=== PATIENT | female | born 1960 | race Caucasian/White ===

== ENCOUNTER 2016-08-26 23:21 | Inpatient (IN) | payer MEDICAID ==
[~2016-08-26] VITALS: Ht 162.6 cm; Wt 69.0 kg
[~2016-08-26 23:21] MED LIST: SYMB160A INH; VENTAER INH
[2016-08-26 23:26] VITALS: BP 140/81; PULSE 118; RESP 30; TEMP 97.8; O2SAT 91
[2016-08-26] MEDS ORDERED: methylPREDNISolone SOD SUCC 125 MG/2 ML VIAL IVP ONE (23:30)
[2016-08-26] MEDS: RESP: ALBUTEROL 2.5 MG/3 ML NEB (SCH) INH ×2 (23:31→23:32)
--- NOTE | 2016-08-26 23:33 | PD ---
HPI Chief Complaint: SOB Time Seen by Provider: 23:27 Travel History International Travel<30 days: No Contact w/Intl Traveler<30days: No History of Present Illness HPI PATIENT WAS D/C FROM [facility] FOR PNEUMONIA YESTERDAY..RETURNS TODAY WITH SOB, EMS FOUND PULSE OX 86%, IN RESP DISTRESS, REQUIRING SUPPLEMENTAL OXYGEN PFSH Past Medical History Anxiety: Yes Diminished Hearing: No Kidney Stones: Yes Immunizations Current: Yes Menopausal: Yes Social History Alcohol Use: Yes (PT STATES "3 BEERS AFTER WORK") Tobacco Use: Yes (1.5 PPD SINCE AGE 12 REFUSING TO ANSWER) Substance Use: Yes (DAILY ETOH USE) Allergies-Medications (Allergen,Severity, Reaction): Coded Allergies: Keflex (Verified Allergy, Intermediate, RASH, 11/11/15) Penicillin (Verified Allergy, Intermediate, RASH, 11/11/15) Sulfa (Verified Allergy, Intermediate, Hives, 11/11/15) Ampicillin (Verified Allergy, Unknown, 11/11/15) Reported Meds & Prescriptions Reported Meds & Active Scripts Active Reported Losartan (Losartan Potassium) 25 Mg Tab 25 Mg PO DAILY Pantoprazole (Pantoprazole Sodium) 40 Mg Tab 40 Mg PO DAILY Hydromorphone (Hydromorphone HCl) 4 Mg Tab 4 Mg PO Q4H PRN Sucralfate 1 Gm Tab 1 Gm PO QID on empty stomach Ondansetron Odt 4 Mg Tab 4 Mg SL Q6HR PRN Alprazolam 0.5 Mg Tab 0.5 Mg PO TID PRN Vitamin B-1 (Thiamine Mononitrate) 100 Mg Tab 100 Mg PO DAILY Levofloxacin 750 Mg Tablet 750 Mg PO DAILY Famotidine 20 Mg Tab 20 Mg PO BID Furosemide 20 Mg Tab 20 Mg PO DAILY Trazodone (Trazodone HCl) 100 Mg Tablet 200 Mg PO HS Carvedilol 3.125 Mg Tab 3.125 Mg PO BID Metoprolol Tartrate 25 Mg Tab 25 Mg PO DAILY Review of Systems Except as stated in HPI: all other systems reviewed are Neg Respiratory: Positive: Cough, Shortness of Breath, Wheezing Physical Exam Narrative GENERAL: SKIN: Warm and dry. HEAD: Atraumatic. Normocephalic. EYES: Pupils equal and round. No scleral icterus. No injection or drainage. ENT: No nasal bleeding or discharge. Mucous membranes pink and moist. NECK: Trachea midline. No JVD. CARDIOVASCULAR: Regular rate and rhythm. RESPIRATORY: ACCESSORY MM USE (SUPRASTERNAL), TACHYPNEIC, TRIPODING, PURSED LIP BREATHING, WHEEZING BILATERALLY, DECREASED TV GASTROINTESTINAL: Abdomen soft, non-tender, nondistended. Hepatic and splenic margins not palpable. MUSCULOSKELETAL: Extremities without clubbing, cyanosis, BILATERAL PITTING BLE 3 + edema. No obvious deformities. NEUROLOGICAL: Awake and alert. No obvious cranial nerve deficits. Motor grossly within normal limits. Five out of 5 muscle strength in the arms and legs. Normal speech. PSYCHIATRIC: Appropriate mood and affect; insight and judgment normal. Data Data Last Documented VS Vital Signs Date Time Temp Pulse Resp B/P Pulse Ox O2 Delivery O2 Flow Rate FiO2 08/27/16 02:00 118 22 112/64 93 Nasal Cannula 3 08/26/16 23:26 97.8 Orders Complete Blood Count With Diff (08/26/16 23:27) Comprehensive Metabolic Panel (08/26/16 23:27) B-Type Natriuretic Peptide (08/26/16 23:27) Act Partial Throm Time (Ptt) (08/26/16 23:27) Prothrombin Time / Inr (Pt) (08/26/16 23:27) Ckmb (Isoenzyme) Profile (08/26/16 23:27) Troponin I (08/26/16 23:27) Urinalysis - C+S If Indicated (08/26/16 23:27) Influenzae A/B Antigen (08/26/16 23:27) Iv Access Insert/Monitor (08/26/16 23:27) Electrocardiogram (08/26/16 23:27) Ecg Monitoring (08/26/16 23:27) Oximetry (08/26/16 23:27) Oxygen Administration (08/26/16 23:27) Chest, Single Ap (08/26/16 23:27) Methylprednisolone So Succ Inj (Solumedr (08/26/16 23:30) Albuterol Neb (Albuterol Neb) (08/26/16 23:30) Magnesium Sulfate 1 Gm Premix (Magnesium (08/26/16 23:45) Lactic Acid Sepsis Protocol (08/26/16 23:54) Aztreonam Inj (Azactam Inj) (08/27/16 00:00) Azithromycin Inj (Zithromax Inj) (08/27/16 00:00) Tobramycin Inj (Nebcin Inj) (08/27/16 00:30) Labs Laboratory Tests Test 08/26/16 08/27/16 23:35 00:25 Prothrombin Time 12.1 SEC Prothromb Time International 1.1 RATIO Ratio Activated Partial 30.6 SEC Thromboplast Time White Blood Count 16.7 TH/MM3 Red Blood Count 3.51 MIL/MM3 Hemoglobin 10.4 GM/DL Hematocrit 31.6 % Mean Corpuscular Volume 90.0 FL Mean Corpuscular Hemoglobin 29.6 PG Mean Corpuscular Hemoglobin 32.9 % Concent Red Cell Distribution Width 16.6 % Platelet Count 443 TH/MM3 Mean Platelet Volume 6.8 FL Neutrophils (%) (Auto) 90.6 % Lymphocytes (%) (Auto) 3.6 % Monocytes (%) (Auto) 5.5 % Eosinophils (%) (Auto) 0.1 % Basophils (%) (Auto) 0.2 % Neutrophils # (Auto) 15.1 TH/MM3 Lymphocytes # (Auto) 0.6 TH/MM3 Monocytes # (Auto) 0.9 TH/MM3 Eosinophils # (Auto) 0.0 TH/MM3 Basophils # (Auto) 0.0 TH/MM3 CBC Comment AUTO DIFF Differential Total Cells 100 Counted Neutrophils % (Manual) 87 % Band Neutrophils % 1 % Lymphocytes % 6 % Monocytes % 3 % Neutrophils # (Manual) 15.2 TH/MM3 Metamyelocytes 1 % Myelocytes 1 % Promyelocytes 1 % Differential Comment FINAL DIFF MANUAL Platelet Estimate HIGH Platelet Morphology Comment NORMAL Red Cell Morphology Comment NORMAL Sodium Level 134 MEQ/L Potassium Level 3.6 MEQ/L Chloride Level 96 MEQ/L Carbon Dioxide Level 32.6 MEQ/L Anion Gap 5 MEQ/L Blood Urea Nitrogen 5 MG/DL Creatinine 0.42 MG/DL Estimat Glomerular Filtration 156 ML/MIN Rate Random Glucose 114 MG/DL Calcium Level 8.3 MG/DL Total Bilirubin 0.4 MG/DL Aspartate Amino Transf 16 U/L (AST/SGOT) Alanine Aminotransferase 8 U/L (ALT/SGPT) Alkaline Phosphatase 147 U/L Total Creatine Kinase 29 U/L Troponin I 0.08 NG/ML B-Type Natriuretic Peptide 140 PG/ML Total Protein 6.5 GM/DL Albumin 1.8 GM/DL Lactic Acid Level 1.4 mmol/L [facility] Medical Decision Making Medical Screen Exam Complete: Yes Emergency Medical Condition: Yes Medical Record Reviewed: Yes Interpretation(s) SINUS TACHY, 129, ARIEL, NO STEMI PATTERN Differential Diagnosis WORSENING PNA V ATYPICAL MA VS PE VS RESP FAILURE Narrative Course PATIENT EVALUATED AND TREATED FOR HYPOXEMIC RESP FAILURE, FOUND TO STILL HAVE RLL INFILTRATE THAT APPEARS WORSE, GIVEN IV ABX FOR TREATMENT. AND WILL ADMIT TO OBS AND OBTAIN SERIAL TROPONIN/EKG TO R/O MA WELL CONTINUE TREATING PNA Critical Care Narrative CRITICAL CARE NOTE: With evaluation of the patient, labs, EKG, receipt of radiologic studies, administration of medications, reevaluation the patient and discussion of the patient with the admitting physicians, the total critical care time was [60] minutes. Time to perform other separately billable procedures was not included in the critical care time. Diagnosis Primary Impression: ACUTE HYPOXEMIC RESPIRATORY FAILURE Additional Impression: RIGHT LUNG PNEUMONIA Admitting Information Admitting Physician Requests: Admit Prabhu Elise MD Aug 26, 2016 23:33
[2016-08-26 23:43] LABS: AUTOMATED NEUTROPHIL # 15.1 TH/MM3 (1.8-7.7); BASOPHIL % 0.2 % (0.0-2.0); EOSINOPHIL % 0.1 % (0.0-4.0); HEMATOCRIT 31.6 % (35.0-46.0); LYMPH % 3.6 % (9.0-44.0); LYMPHOCYTE # 0.6 TH/MM3 (1.0-4.8); MEAN CORPUSCULAR HEMOGLOBIN 29.6 PG (27.0-34.0); MEAN CORPUSCULAR HGB CONC 32.9 % (32.0-36.0); MONO % 5.5 % (0.0-8.0); NEUT % 90.6 % (16.0-70.0); PLATELET COUNT 443 TH/MM3 (150-450); RED BLOOD COUNT 3.51 MIL/MM3 (4.00-5.30); RED CELL DISTRIBUTION WIDTH 16.6 % (11.6-17.2); WHITE BLOOD COUNT 16.7 TH/MM3 (4.0-11.0)
[2016-08-26] MEDS ORDERED: MAGNESIUM SULFATE 1 GM PREMIX 100 ML IV ONE (23:45)
[2016-08-26 23:46] LABS: HEMO FLAGS AUTO DIFF
--- NOTE | 2016-08-26 23:48 | RADRPT ---
EXAM DATE/TIME: 08/26/2016 23:42 [facility] COMPARISON: CHEST SINGLE AP, November 11, 2015, 21:07. INDICATIONS : Shortness of breath. MEDICAL HISTORY : Chronic obstructive pulmonary disease. SURGICAL HISTORY : None. ENCOUNTER: Initial ACUITY: 3 days PAIN SCORE: 0/10 LOCATION: chest FINDINGS: There is right pleural effusion with dense air space consolidation of most of the right lung not pres ent previously. Mild left lung base atelectasis and/or infiltrate is seen. Heart and mediastinum are not significantly changed. CONCLUSION: Interval development of a right pleural effusion and dense air space consolidation of the right lung and slight left lung base atelectasis and/or infiltrate. Goldie Brito MD on August 26, 2016 at 23:46 Board Certified Radiologist. This report was verified electronically.
[2016-08-26 23:53] LABS: APTT (PATIENT) 30.6 SEC (24.3-30.1); INTERNATIONAL NORMALIZED RATIO 1.1 RATIO; PROTHROMBIN TIME - PATIENT 12.1 SEC (9.8-11.6)
[2016-08-27] VITALS (16 sets, daily range): BP systolic 92–132; BP diastolic 58–96; PULSE 110–127; RESP 22–28; TEMP 98–98.8; O2SAT 91–100
[2016-08-27] MEDS ORDERED: AZITHROMYCIN INJ 500 MG in SODIUM CHLOR 0.9% 250 ML INJ 250 ML IV ONE ×2
[2016-08-27] MEDS ORDERED: AZTREONAM INJ 2,000 MG in SODIUM CHLORIDE 0.9% INJ 100 ML IV ONE ×2
[2016-08-27 00:04] LABS: ANION GAP 5 MEQ/L (5-15); AST (GOT) 16 U/L (15-37); BICARBONATE 32.6 MEQ/L (21.0-32.0); BLOOD UREA NITROGEN 5 MG/DL (7-18); CHLORIDE 96 MEQ/L (98-107); GLOMERULAR FILTRATION RATE 156 ML/MIN (>89); POTASSIUM 3.6 MEQ/L (3.5-5.1); SODIUM (NA) 134 MEQ/L (136-145)
[2016-08-27 00:08] LABS: ALKALINE PHOSPHATASE 147 U/L (45-117); ALT (GPT) 8 U/L (10-53); TOTAL BILIRUBIN ADULT 0.4 MG/DL (0.2-1.0)
[2016-08-27 00:10] LABS: CREATINE KINASE 29 U/L (26-192)
[2016-08-27 00:16] LABS: BANDS 1 % (0-6); METAMYELOCYTES 1 % (0-1); MYELOCYTES 1 % (0-0); NEUTROPHIL # MANUAL DIFF 15.2 TH/MM3 (1.8-7.7); PLATELET ESTIMATE SMEAR HIGH (NORMAL); PLATELET MORPHOLOGY NORMAL (NORMAL); POLYS (SEG NEUTROPHILS) 87 % (16-70); PROMYELOCYTES 1 % (0-0); SCAN/DIFF FINAL DIFF MANUAL; WBC DIFF SAMPLE 100
[2016-08-27] MEDS ORDERED: FAMO20TA2 PO (00:21)
[2016-08-27] MEDS ORDERED: FURO20TA PO (00:21)
[2016-08-27] MEDS ORDERED: TRAZ100T6 PO (00:21)
[2016-08-27] MEDS ORDERED: METO25TA3 PO (00:21)
[2016-08-27] MEDS ORDERED: CARV3.12 PO (00:21)
[2016-08-27] MEDS ORDERED: ONDA4TAB7 SL (00:22)
[2016-08-27] MEDS ORDERED: THIA100T18 PO (00:22)
[2016-08-27] MEDS ORDERED: PANT40TA3 PO (00:22)
[2016-08-27] MEDS ORDERED: LOSA25TA PO (00:22)
[2016-08-27] MEDS ORDERED: SUCR1TAB PO (00:22)
[2016-08-27] MEDS ORDERED: LEVO750T3 PO (00:22)
[2016-08-27] MEDS ORDERED: HYDR4TAB PO (00:22)
[2016-08-27] MEDS ORDERED: ALPR0.5T3 PO (00:22)
[2016-08-27] MEDS ORDERED: TOBRAMYCIN IV ONE (00:30)
[2016-08-27] MEDS ORDERED: SODIUM CHLORIDE 0.9% IV ONE (00:30)
[2016-08-27] MEDS ORDERED: ONDANSETRON HCL 4 MG/2 ML VIAL IVP PRN (03:00)
[2016-08-27] MEDS ORDERED: BISACODYL 10 MG SUPP RECTAL PRN (03:00)
[2016-08-27] MEDS ORDERED: methylPREDNISolone SOD SUCC 125 MG/2 ML VIAL IVP SCH (03:00)
[2016-08-27] MEDS ORDERED: LACTULOSE SYRUP 20 GM/30 ML CUP PO PRN (03:00)
[2016-08-27] MEDS ORDERED: SENNOSIDES 8.6 MG TAB PO PRN (03:00)
[2016-08-27] MEDS ORDERED: ACETAMINOPHEN 325 MG TAB PO PRN (03:00)
[2016-08-27] MEDS ORDERED: SODIUM CHLORIDE 0.9% FLUSH 10 ML FLUSH IV FLUSH PRN (03:00)
[2016-08-27] MEDS ORDERED: RESP: ALBUTEROL 2.5 MG/3 ML NEB (PRN) INH (03:00)
[2016-08-27] MEDS ORDERED: NALOXONE HCL 0.4 MG/ML AMP IV PRN (03:00)
[2016-08-27] MEDS: SODIUM CHLOR 0.9% 1000 ML INJ 1,000 ML IV SCH (03:39)
[2016-08-27] MEDS ORDERED: RESP: ALBUTEROL 2.5 MG/IPRATROPIUM 0.5 MG NEB (SCH) INH (04:00)
[2016-08-27 06:32] LABS: BACTERIA, URINE RARE /hpf; BLOOD, URINE NEG (NEG); COMMENT (UR) CULT NOT INDICATED; CULTURE IF INDICATED CULT NOT INDICATED; GLUCOSE,URINE NEG (NEG); HYALINE CAST, URINE 4 /lpf (RARE); KETONE, URINE NEG (NEG); MUCUS URINE FEW /lpf (OCC); NITRITE,URINE NEG (NEG); SQUAMOUS EPITHELIAL CELL URINE 1 /hpf (0-5); TRIPLE PHOSPHATE CRYSTAL,URINE RARE /hpf; URINE COLOR YELLOW (YELLW/STRAW)
[2016-08-27] MEDS: methylPREDNISolone SOD SUCC 125 MG/2 ML VIAL IVP SCH ×2 (06:54→12:00)
[2016-08-27] MEDS: SODIUM CHLORIDE 0.9% FLUSH 10 ML FLUSH IV FLUSH SCH ×2 (09:00→20:56)
[2016-08-27] MEDS: HEPARIN SODIUM - SQ 10,000 UNITS/ML VIAL SQ SCH ×2 (09:00→20:54)
--- NOTE | 2016-08-27 09:34 | MH ---
cc: PALMER PENA MD DATE OF ADMISSION: 08/27/2016 DATE OF : 1960 REASON FOR ADMISSION Chest pain and shortness of breath. HISTORY OF PRESENT ILLNESS This is a 55-year-old white female who was just discharged from [facility] yesterday with pneumonia. She returns with shortness of breath. EMS noted an O2 sat of 86. The patient does use O2 at home and was requiring supplemental oxygen during her event. She notes her chest pain to have waxed and waned, midsternal, non-radiating with shortness of breath. No radiation into her arms. The patient's color is pale and she is actively short of breath with low volumes with any type of increased activity. The patient denies any symptoms of headache. She had some nausea at the time of the chest pain but no vomiting, no diarrhea, no constipation. She has a significant history of a pack and a half tobacco abuse since the age of 12 and three beers a day after work, and states that she has not drank or smoked anything in two months. PAST MEDICAL HISTORY Anxiety. Noted is a history of kidney stones but the patient denies remembering any event. PAST SURGICAL HISTORY No surgical history. ALLERGIES 1. AMPICILLIN. 2. KEFLEX. 3. PENICILLIN. 4. SULFA. MEDICATIONS 1. Losartan. 2. Protonix. 3. Hydromorphone p.o. 4. Carafate. 5. Xanax. 6. Vitamins. 7. Vitamin-B1. 8. Levaquin. 9. Zantac. 10. Lasix. 11. Trazodone. 12. Carvedilol. 13. Metoprolol. SOCIAL HISTORY The patient is single, lives in her home, and her son lives with her. REVIEW OF SYSTEMS A 12-point review obtained. Positives noted are shortness of breath, wheezing, chest pain, active cough with thick white creamy sputum. Other systems are negative or unremarkable. PHYSICAL EXAMINATION VITAL SIGNS: Temperature 98. Pulse for the past 12 hours between 118 and 127, currently 120. Respiratory rate 24. Blood pressure 103/64; high at midnight last night 132/78. O2 sat 91% on nasal cannula at 3 liters. GENERAL: A thin, borderline frail white female who looks older than her stated age, currently sitting up on the bedside commode and back to bed independently. SKIN: Pale, warm and dry. HEENT: Atraumatic, normocephalic. PERRLA at 3 mm. NECK: Supple. HEART: S1, S2, tachycardic rhythm. LUNGS: Wheezing, rhonchi and diminished breath sounds throughout. Decreased breath sounds in her bases bilateral. ABDOMEN: Flat, soft, nontender, nondistended. Active bowel sounds. EXTREMITIES: Moves her extremities with purpose. She does have 1+ pitting edema in her lower extremities. NEUROLOGIC: She is alert and oriented, answers questions appropriately. PSYCHIATRIC: Appropriate mood and affect. LABORATORY DATA WBC count 16.7, RBC 3.51, hemoglobin 10.4, hematocrit 31.6, neutrophil count 9.6, lymphocyte count 3.6, high platelet estimate count 443. INR is 1.1. Sodium 134, potassium 3.6, chloride 96, carbon dioxide 32.6, anion gap 5, BUN 5, creatinine 0.42, GFR 156, glucose 114, lactic acid 1.4, calcium 8.3, ALT 8, alkaline phosphatase 147, creatinine kinase 29, troponin 0.08 and 0.80, BNP 140, total protein 6.5, albumin 1.8. Urinalysis was negative, culture not indicated. IMAGING DATA Chest x-ray shows right pleural effusion, dense airspace consolidation of the right and left lung base, atelectasis and/or infiltrates. ASSESSMENT 1. Chest pain, rule out myocardial infarction, rule out cardiovascular disease. 2. Pneumonia bilateral with effusion and infiltrates. 3. Hyponatremia, mild. 4. Protein calorie malnutrition, moderate. 5. History of anxiety. 6. COPD. 7. History of significant tobacco dependence. PLAN Inpatient status. Continuous cardiac monitoring, currently being monitored in the intensive care unit. The patient got a dose of azithromycin as well as aztreonam IV q.8h. She is on IV steroids. Her labs will be monitored which will include a third troponin. She has been placed on heparin subcu for DVT prophylaxis. Bowel regimen monitored. Pulmonary has been consulted for their expert opinion and will consult cardiology for their expert opinion. The patient has had a bump in her troponin level and symptoms of chest pain. Sputum culture has been ordered. She is negative for influenza A and B. Hypoxia which is now being controlled with O2. Vital signs q.4h. and as warranted. DuoNeb treatments q.6h. and q.2h. p.r.n. the patient can be out of bed to bedside commode but needs to be monitored for her safety. The patient received IV fluids gentle hydration. Will continue to monitor her needs based on her findings throughout this hospital stay. Dictated by: SHIMON Cruz Palmer Pena MD JP/ARMINDA /8:40 AM /9:06 AM Patient was seen and examined as above [id number] time spent with patient Chart was reviewed in detail Plan of care and above not discussed with SHIMON Discussed with patient Discussed with Dr. Wooten graduate engineer Discussed with detacher condition guarded Prognosis guarded to overall poor MTDD
--- NOTE | 2016-08-27 10:00 | RADRPT ---
EXAM DATE/TIME: 08/27/2016 09:30 [facility] COMPARISON: No previous studies available for comparison. INDICATIONS : Short of breath. MEDICAL HISTORY : Hypercholesterolemia. Hypertension. Renal calculi. Pneumonia. COPD. ETOH use. Anxiety. SURGICAL HISTORY : None. ENCOUNTER: Initial ACUITY: 3 days PAIN SCORE: 1/10 LOCATION: Right chest MEASUREMENTS: SKIN TO PARIETAL PLEURA: 2.0 cm SKIN TO MAX SAFE DEPTH: 6.8 cm ESTIMATED FLUID VOLUME: 1698 cc FLUID COMPOSITION: simple FINDINGS: Pleural effusion as above. CONCLUSION: Moderate right pleural effusion, marked for bedside thoracentesis Davon Spain MD on August 27, 2016 at 9:57 Board Certified Radiologist. This report was verified electronically.
[2016-08-27] MEDS ORDERED: AZTREONAM INJ 2,000 MG in SODIUM CHLORIDE 0.9% INJ 100 ML IV SCH (11:00)
--- NOTE | 2016-08-27 11:34 | EKG ---
Date Performed: 08/26/2016 Time Performed: 23:30:38 PTAGE: 55 years EKG: SINUS TACHYCARDIA LOW QRS VOLTAGE IN EXTREMITY LEADS ABNORMAL RHYTHM ECG NO PREVIOUS TRACING DOCTOR: Rohan Ramos Interpretating Date/Time 08/27/2016 11:33:29
[2016-08-27] MEDS ORDERED: HYDROmorphone HCL 4 MG TAB PO PRN (12:15)
[2016-08-27] MEDS: PANTOPRAZOLE SOD 40 MG DELAYED RELEASE TAB PO SCH (12:15)
[2016-08-27] MEDS ORDERED: CARVEDILOL 3.125 MG TAB PO SCH (12:15)
[2016-08-27] MEDS ORDERED: PILL SPLITTER OTHER PRN (12:30)
[2016-08-27] MEDS ORDERED: MORPHINE SULFATE 4 MG/ML INJ IV PUSH ONE (12:45)
[2016-08-27] MEDS: ALPRAZolam 0.5 MG TAB PO PRN ×3 (12:45→19:25)
[2016-08-27] MEDS: SUCRALFATE 1 GM TAB PO SCH ×3 (12:46→20:55)
[2016-08-27] MEDS: FUROSEMIDE 20 MG TAB PO SCH (12:50)
[2016-08-27] MEDS: FAMOTIDINE 20 MG TAB PO SCH ×2 (12:50→20:55)
--- NOTE | 2016-08-27 14:20 | MB ---
cc: GONZALES MUNSON M.D. DATE OF CONSULTATION: 08/27/2016 REASON FOR CONSULTATION: Evaluation of elevated troponin and chest pain. HISTORY OF PRESENT ILLNESS This is a 55-year-old female who was just discharged from [facility] and now re-admitted to [place]. Her troponin has gone from 0.08 to 0.80 and I was counseled because she has chest pain. The patient tells me she was diagnosed with throat and lung cancer in March, apparently had a needle biopsy. She has received 38 radiation treatments and six bouts of chemotherapy. Last bout of chemotherapy was Tuesday before last. She is having severe shortness of breath. She has sharp pain in her right lower chest and lower back, it is worse when she takes a deep breath. We do not have any of her old records and Dr. Pena is in the process of getting those. The pain she is having is extremely severe and she is requesting medication for it. Apparently has a longstanding history of smoking, a pack and a half a day since she was 12 years of age and also three beers a day. The only other past history I could get from her is kidney stones. ALLERGIES AMPICILLIN, KEFLEX, PENICILLIN, SULFA. SOCIAL HISTORY She is single. Her son apparently lives with her. REVIEW OF SYSTEMS Positive as described above. PHYSICAL EXAMINATION GENERAL: Physical exam reveals a distressed female, older than stated age. VITAL SIGNS: Charted. She is in sinus tachycardia. HEENT: Exam unremarkable. NECK: Negative for bruits. CHEST: Shows absent breath sounds left lung farias. CARDIAC: S1-S2, markedly tachycardic and there is a gallop. ABDOMEN: Soft. EXTREMITIES: Reveal 2+ lower extremity edema. LABORATORY DATA Lab work shows the troponin 1.08 to 0.80. The creatinine is 0.42. Sodium is depressed at 134. BNP is 140, hematocrit 31.6, white count 16,700. IMAGING STUDIES Chest x-ray is extremely abnormal with right pleural effusion but also has whiteout of most of the right side of the chest and also some infiltrate in the left lower lobe as well. EKG Shows marked sinus tachycardia, low limb lead voltage, no acute ST-T wave changes. IMPRESSION Chest pain with mildly elevated troponin in a very complicated 55-year-old woman with severe COPD and lung cancer, has significant right lower lobe effusion. She has been on a beta williams before admission. I am going to resume metoprolol 12.5 b.i.d., going to check an echo to see if there is any evidence of cardiac tamponade. I do not plan any cardiac evaluation in view of her prognosis and her malignancy diagnosis. Further therapy to be determined. MD SANTI Rowell/EVENS /12:27 PM /2:03 PM
[2016-08-27] MEDS ORDERED: CHLORHEXIDINE GLUCONATE 2 % 1 PACK (2 CLOTHS)(extra cloths) TOPICAL PRN (14:45)
[2016-08-27] MEDS: AZTREONAM INJ 2,000 MG in SODIUM CHLORIDE 0.9% INJ 100 ML IV SCH ×2 (14:51→20:53)
[2016-08-27] MEDS: MORPHINE SULFATE 4 MG/ML INJ IV PUSH PRN ×2 (14:52→20:55)
[2016-08-27] MEDS: RESP: ALBUTEROL 2.5 MG/IPRATROPIUM 0.5 MG NEB (SCH) NEB ×2 (16:00→19:35)
[2016-08-27] MEDS: methylPREDNISolone SOD SUCC 40 MG/1 ML VIAL IV PUSH SCH ×2 (18:00→23:44)
--- NOTE | 2016-08-27 20:43 | RADRPT ---
EXAM DATE/TIME: 08/27/2016 20:28 [facility] COMPARISON: CHEST SINGLE AP, August 26, 2016, 23:42. INDICATIONS : Status post thoracentesis. MEDICAL HISTORY : Chronic obstructive pulmonary disease. SURGICAL HISTORY : ENCOUNTER: Subsequent ACUITY: 1 day PAIN SCORE: 3/10 LOCATION: chest FINDINGS: A single AP semierect portable view of the chest was obtained. This again demonstrates dense airspace disease in the right lung with consolidative opacity along the lateral mid chest. The right costophr enic angle remains blunted. There is patchy opacity at the left lung base. There is no visualized pne umothorax. The heart size is within normal limits. Bony thorax is intact. CONCLUSION: 1. No evidence of pneumothorax. 2. Abnormal airspace opacity and consolidation in the right lung without significant change. 3. The right effusion does not appear significantly changed. Corey Norwood MD on August 27, 2016 at 20:39 Board Certified Radiologist. This report was verified electronically.
[2016-08-27 20:54] LABS: PLEURAL FLUID LYMPHS 47 %
[2016-08-27] MEDS: traZODone HCL 100 MG TAB PO SCH (20:55)
[2016-08-27] MEDS: METOPROLOL TARTRATE 25 MG TAB PO SCH (20:56)
[2016-08-28] VITALS (14 sets, daily range): BP systolic 82–92; BP diastolic 52–64; PULSE 102–119; RESP 11–22; TEMP 98.3–99.2; O2SAT 95–100
[2016-08-28] MEDS: AZITHROMYCIN INJ 500 MG in SODIUM CHLOR 0.9% 250 ML INJ 250 ML IV SCH (01:24)
[2016-08-28] MEDS: MORPHINE SULFATE 4 MG/ML INJ IV PUSH PRN ×6 (02:04→18:14)
[2016-08-28] MEDS: CHLORHEXIDINE GLUCONATE 2 % 1 PACK (2 CLOTHS)(taper/protocol) TOPICAL SCH (04:00)
[2016-08-28] MEDS: AZTREONAM INJ 2,000 MG in SODIUM CHLORIDE 0.9% INJ 100 ML IV SCH ×3 (04:57→23:42)
[2016-08-28] MEDS: methylPREDNISolone SOD SUCC 40 MG/1 ML VIAL IV PUSH SCH ×3 (04:57→18:00)
[2016-08-28] MEDS: ALPRAZolam 0.5 MG TAB PO PRN ×2 (05:52→10:33)
[2016-08-28 06:23] LABS: AUTOMATED NEUTROPHIL # 8.3 TH/MM3 (1.8-7.7); BASOPHIL % 0.1 % (0.0-2.0); HEMATOCRIT 25.1 % (35.0-46.0); HEMO FLAGS DIFF FINAL; LYMPH % 2.7 % (9.0-44.0); LYMPHOCYTE # 0.2 TH/MM3 (1.0-4.8); MEAN CELL VOLUME 90.9 FL (80.0-100.0); MEAN CORPUSCULAR HEMOGLOBIN 30.2 PG (27.0-34.0); MEAN CORPUSCULAR HGB CONC 33.2 % (32.0-36.0); MONO % 3.8 % (0.0-8.0); NEUT % 93.4 % (16.0-70.0); PLATELET COUNT 359 TH/MM3 (150-450); RED BLOOD COUNT 2.76 MIL/MM3 (4.00-5.30); RED CELL DISTRIBUTION WIDTH 16.6 % (11.6-17.2); WHITE BLOOD COUNT 8.9 TH/MM3 (4.0-11.0)
[2016-08-28 06:28] LABS: INTERNATIONAL NORMALIZED RATIO 1.2 RATIO; PROTHROMBIN TIME - PATIENT 13.1 SEC (9.8-11.6)
[2016-08-28 06:50] LABS: BICARBONATE 32.5 MEQ/L (21.0-32.0); POTASSIUM 4.1 MEQ/L (3.5-5.1)
[2016-08-28] MEDS: RESP: ALBUTEROL 2.5 MG/IPRATROPIUM 0.5 MG NEB (SCH) NEB ×5 (07:53→23:36)
[2016-08-28] MEDS: FUROSEMIDE 20 MG TAB PO SCH (08:06)
[2016-08-28] MEDS: PANTOPRAZOLE SOD 40 MG DELAYED RELEASE TAB PO SCH (08:06)
[2016-08-28] MEDS: SUCRALFATE 1 GM TAB PO SCH ×4 (08:06→23:44)
[2016-08-28] MEDS: THIAMINE HCL 100 MG TAB PO SCH (08:06)
[2016-08-28] MEDS: FAMOTIDINE 20 MG TAB PO SCH ×2 (08:06→23:45)
[2016-08-28] MEDS: LOSARTAN 25 MG TAB PO SCH (08:06)
[2016-08-28] MEDS: METOPROLOL TARTRATE 25 MG TAB PO SCH ×2 (08:06→21:00)
[2016-08-28] MEDS: HEPARIN SODIUM - SQ 10,000 UNITS/ML VIAL SQ SCH ×3 (08:07→23:46)
[2016-08-28] MEDS: SODIUM CHLORIDE 0.9% FLUSH 10 ML FLUSH IV FLUSH SCH ×2 (08:08→23:42)
[2016-08-28] MEDS: SODIUM CHLOR 0.9% 1000 ML INJ 1,000 ML IV SCH (08:50)
[2016-08-28] MEDS ORDERED: METOPROLOL TARTRATE 25 MG TAB PO SCH (09:00)
--- NOTE | 2016-08-28 09:43 | HHI.PR ---
Subjective Remarks Tearful Uncontrolled pain, back legs chest lungs States it's her cancer pain Color pale Lung volumes low Mild tachycardia (Ibeth Gottlieb) Objective Objective Results - Vital Signs Date Time Temp Pulse Resp B/P Pulse Ox O2 Delivery O2 Flow Rate FiO2 08/28/16 07:54 100 Nasal Cannula 3.00 08/28/16 06:00 103 08/28/16 04:00 106 08/28/16 04:00 98.5 106 22 92/55 100 08/28/16 00:00 113 08/28/16 00:00 98.3 113 11 82/52 97 08/27/16 22:00 110 08/27/16 20:00 116 08/27/16 20:00 98.1 116 28 97/58 100 08/27/16 19:35 99 Nasal Cannula 4.00 08/27/16 18:00 114 08/27/16 16:00 114 08/27/16 16:00 98.8 110 24 100/96 99 08/27/16 14:00 110 08/27/16 14:00 98.8 125 24 94/62 99 08/27/16 12:00 110 08/27/16 10:50 98.0 26 110/64 91 08/27/16 10:00 110 I/O 08/27/16 08/27/16 08/27/16 08/28/16 08/28/16 08/28/16 07:00 15:00 23:00 07:00 15:00 23:00 Intake Total 1205 ml 1066 ml 895 ml Output Total 800 ml Balance 405 ml 1066 ml 895 ml Intake Oral 380 ml 360 ml 240 ml IV Total 825 ml 706 ml 655 ml Output Urine Total 800 ml # Voids 1 1 # Bowel Movements 0 0 (Ibeth Gottlieb) Result Diagram: 08/28/16 0545 08/28/16 0545 ROS General: Fatigue, Weakness, Other (12 point ROS done positives noted) Cardiac: Chest Pain (muscle skeletal) Pulmonary: Cough (productive), SOB (even at rest), Wheezing (mild expiratory) Neuro/MS: Other (aching pain all over, cancer pain) (Ibeth Gottlieb) Physical Exam Physical Exam PHYSICAL EXAMINATION GENERAL: This is a chronically ill female who appears to be in moderate distress with pain. She is alert and awake, restless HEAD: Normocephalic alopecia Facial features appear symmetric. OROPHARYNGEAL: Oropharynx dry, pale NECK: Supple. Trachea midline without deviation. CARDIAC: Regular tachycardic rhythm, and rate, S1 and S2 are heard. LUNGS: Decreased breath sounds to auscultation bilaterally right greater than left. Low air volumes ABDOMEN: Soft, nontender Bowel sound soft EXTREMITIES: no edema. Pulses intact NEUROLOGICAL: Patient mood and affect restless, agitated speech is clear SKIN:Warm and dry (Ibeth Gottlieb) A/P Assessment and Plan 1. Chest pain, rule out myocardial infarction, rule out cardiovascular disease. 2. Pneumonia bilateral with effusion and infiltrates. 3. Hyponatremia, mild. 4. Protein calorie malnutrition, moderate. 5. History of anxiety. 6. COPD. 7. History of significant tobacco dependence. Vital signs reviewed pulse is mildly tachycardic 103-110 Blood pressure has been low normal 92/55, nurse stated low blood pressures last night systolic 70s 1 time Labs reviewed hemoglobin decreased to 8.3 Leukocytosis resolved now 8.9 Pneumonia, bilateral, continues with low air volumes, coarse cough with sputum production, rodriguez/yellow Wearing oxygen per nasal cannula, with adequate O2 sats COPD duo nebs, IV steroids continue Appreciate input from pulmonary, thoracentesis Tap done for pleural fluid, results are pending History of cancer, pain management, patient is requesting to be placed back on her by mouth Dilaudid. Currently receiving IV morphine Restless agitated, requesting more pain management, but BP has been low Anemia monitor, no acute blood loss noted Anxiety increased today secondary to her pain management, continue IV hydration caution Coverage nutrition, and by mouth fluids, with special attention to increased protein intake Chest pain atypical, cancer and with cough. Appreciate cardiology input, currently we will proceed with medical management for now Patient is debilitated and unable to proceed with any invasive cardiac procedures. 2-D echo pending Continuous ECG monitoring for now DVT prophylaxis (Ibeth Gottlieb) Assessment and Plan Patient seen and examined as above [id number] time spent with patient Labs reviewed Status post thoracentesis yesterday approximately 800 mL taken out as per RN Plan of care discussed with EQUIPMENT MANAGER Discussed with patient discussed with RN (Everton Pena MD) Ibeth Gottlieb Aug 28, 2016 09:43 Everton Pena MD Aug 28, 2016 15:39
--- NOTE | 2016-08-28 10:14 | HHI.PR ---
Subjective Remarks Patient is on 4L oxygen with good sats. s/p right sided thoracentesis with removal 850ml pleural fluid. Afebrile. Objective Vital Signs Vital Signs Date Time Temp Pulse Resp B/P Pulse Ox O2 Delivery O2 Flow Rate FiO2 08/28/16 07:54 100 Nasal Cannula 3.00 08/28/16 06:00 103 08/28/16 04:00 106 08/28/16 04:00 98.5 106 22 92/55 100 08/28/16 00:00 113 08/28/16 00:00 98.3 113 11 82/52 97 08/27/16 22:00 110 08/27/16 20:00 116 08/27/16 20:00 98.1 116 28 97/58 100 08/27/16 19:35 99 Nasal Cannula 4.00 08/27/16 18:00 114 08/27/16 16:00 114 08/27/16 16:00 98.8 110 24 100/96 99 08/27/16 14:00 110 08/27/16 14:00 98.8 125 24 94/62 99 08/27/16 12:00 110 08/27/16 10:50 98.0 26 110/64 91 I/O 08/27/16 08/27/16 08/27/16 08/28/16 08/28/16 08/28/16 07:00 15:00 23:00 07:00 15:00 23:00 Intake Total 1205 ml 1066 ml 895 ml Output Total 800 ml Balance 405 ml 1066 ml 895 ml Intake Oral 380 ml 360 ml 240 ml IV Total 825 ml 706 ml 655 ml Output Urine Total 800 ml # Voids 1 1 # Bowel Movements 0 0 Result Diagram: 08/28/16 0545 08/28/16 0545 Other Results Laboratory Tests Test 08/27/16 08/28/16 18:45 05:45 Pleural Fluid pH 8.0 Pleural Fluid WBC 184 /MM3 Pleural Fluid RBC 138 /MM3 Pleural Fluid Neutrophils 50 % Pleural Fluid Lymphocytes 47 % Pleural Fluid Eosinophils 1 % Pleural Fluid Basophils 1 % Pleural Fluid Histiocytes 1 % White Blood Count 8.9 TH/MM3 Red Blood Count 2.76 MIL/MM3 Hemoglobin 8.3 GM/DL Hematocrit 25.1 % Mean Corpuscular Volume 90.9 FL Mean Corpuscular Hemoglobin 30.2 PG Mean Corpuscular Hemoglobin 33.2 % Concent Red Cell Distribution Width 16.6 % Platelet Count 359 TH/MM3 Mean Platelet Volume 6.9 FL Neutrophils (%) (Auto) 93.4 % Lymphocytes (%) (Auto) 2.7 % Monocytes (%) (Auto) 3.8 % Eosinophils (%) (Auto) 0.0 % Basophils (%) (Auto) 0.1 % Neutrophils # (Auto) 8.3 TH/MM3 Lymphocytes # (Auto) 0.2 TH/MM3 Monocytes # (Auto) 0.3 TH/MM3 Eosinophils # (Auto) 0.0 TH/MM3 Basophils # (Auto) 0.0 TH/MM3 CBC Comment DIFF FINAL Differential Comment Prothrombin Time 13.1 SEC Prothromb Time International 1.2 RATIO Ratio Sodium Level 137 MEQ/L Potassium Level 4.1 MEQ/L Chloride Level 100 MEQ/L Carbon Dioxide Level 32.5 MEQ/L Anion Gap 5 MEQ/L Blood Urea Nitrogen 10 MG/DL Creatinine 0.54 MG/DL Estimat Glomerular Filtration 117 ML/MIN Rate Random Glucose 143 MG/DL Calcium Level 7.8 MG/DL Troponin I 0.38 NG/ML Objective Remarks GENERAL: Patient is 55 yo sitting up in chair in NAD SKIN: Warm and dry. HEAD: Normocephalic. EYES: No scleral icterus. No injection or drainage. NECK: Supple, trachea midline. No JVD or lymphadenopathy. CARDIOVASCULAR: Regular rate and rhythm without murmurs, gallops, or rubs. RESPIRATORY: Breath sounds equal bilaterally. Diminished BS. GASTROINTESTINAL: Abdomen soft, non-tender, nondistended. MUSCULOSKELETAL: No cyanosis, or edema. Neuro: Awake and alert A/P Assessment and Plan 1)Resp Insuff 2)Hx Throat and Lung ca 3)Right pleural effusion s/p thoracentesis 4)COPD exac 5)Right sided pneumonia 6)Mild elevated trop 7)Anemia Plan Continue with oxygen keep sat >92% Bronchodilators( Duoneb), add Symbicort Continue with IV steroids- Solumederol 40mg Q6 NIPPV PRN for resp distress s/p US guided thoracentesis follow up on fluid analysis/culture Continue with abx ( Aztreonam, Azithromycin) Monitor for signs of infections ( Fever, WBC) Check strep pneumonia and Legionella urinary AG Nasal washing negative for Influenza on 08/27 Continue with diuretics- On Lasix 20mg daily, d/c IVF GI/DVT prophylaxis on Protonix and Heparin respectively. Holly Hatfield MD Aug 28, 2016 10:14
[2016-08-28] MEDS: BUDESONIDE-FORMOTEROL 160/4.5 MCG INHALER INH SCH ×2 (10:15→21:00)
--- NOTE | 2016-08-28 10:19 | ECHRPT ---
Indication: assess for pericardial effusion CONCLUSIONS The left ventricular systolic function is moderately reduced with an estimated ejection fraction in the range of 40-45%. Regional wall motion is technically difficult to assess. Wall thickness is normal. Normal left ventricular size. Mild mitral valve regurgitation. There is mild to moderate tricuspid valve regurgitation. The estimated pulmonary arterial pressure is 41 mmHg. The pulmonary valve is not well visualized. BP: 103 / 64 HR: 130 Rhythm: Other MEASUREMENTS (Male / Female) Normal Values Technical Quality:Fair 2D ECHO LV Diastolic Diameter PLAX 4.1 cm 4.2 - 5.9 / 3.9 - 5.3 cm LV Systolic Diameter PLAX 3.4 cm IVS Diastolic Thickness 0.9 cm 0.6 - 1.0 / 0.6 - 0.9 cm LVPW Diastolic Thickness 0.9 cm 0.6 - 1.0 / 0.6 - 0.9 cm LV Relative Wall Thickness 0.5 LVOT Diameter 1.8 cm M-MODE Aortic Root Diameter MM 2.0 cm LA Systolic Diameter MM 3.3 cm LA Ao Ratio MM 1.6 AV Cusp Separation MM 1.9 cm DOPPLER AV Peak Velocity 103.0 cm/s AV Peak Gradient 4.2 mmHg LVOT Peak Velocity 96.7 cm/s LVOT Peak Gradient 3.7 mmHg AV Area Cont Eq pk 2.4 cm MR Peak Velocity 374.0 cm/s MR Peak Gradient 56.0 mmHg TR Peak Velocity 278.0 cm/s TR Peak Gradient 30.9 mmHg PV Peak Velocity 76.0 cm/s PV Peak Gradient 2.3 mmHg FINDINGS LEFT VENTRICLE The left ventricular systolic function is moderately reduced with an estimated ejection fraction in the range of 40-45%. Regional wall motion is technically difficult to assess. Wall thickness is normal. Normal left ventricular size. RIGHT VENTRICLE Normal right ventricular size and systolic function. LEFT ATRIUM The left atrial size is normal. RIGHT ATRIUM The right atrial size is normal. ATRIAL SEPTUM Normal atrial septal thickness without atrial level shunting by limited color doppler interrogation. AORTA The aortic root and proximal ascending aorta are normal in size on limited imaging. MITRAL VALVE Mild mitral valve regurgitation. AORTIC VALVE Trileaflet aortic valve. No aortic valve stenosis or regurgitation. TRICUSPID VALVE There is mild to moderate tricuspid valve regurgitation. The estimated pulmonary arterial pressure is 41 mmHg. PULMONARY VALVE The pulmonary valve is not well visualized. VESSELS The inferior vena cava is normal in size. PERICARDIUM No pericardial effusion. Cesario Rodríguez MD (Electronically Signed) Final Date:28 August 2016 10:17
--- NOTE | 2016-08-28 10:43 | PD.CARD.PN ---
Subjective Subjective Remarks C/o constant right-sided chest pain and back pain Objective Medications Current Medications Medications (Trade) Dose Ordered Sig/Luiz Route Start Time Stop Time Status Last Admin (NS Flush) 2 ml UNSCH PRN IV FLUSH 08/27/16 03:00 (NS Flush) 2 ml BID IV FLUSH 08/27/16 09:00 08/28/16 08:08 (Tylenol) 650 mg Q4H PRN PO 08/27/16 03:00 08/27/16 11:57 (Zofran Inj) 4 mg Q6H PRN IVP 08/27/16 03:00 (Heparin Inj) 5,000 units Q12HR SQ 08/27/16 09:00 08/27/16 20:54 (Narcan Inj) 0.4 mg UNSCH PRN IV 08/27/16 03:00 (Senokot) 17.2 mg Q12H PRN PO 08/27/16 03:00 (Dulcolax Supp) 10 mg DAILY PRN RECTAL 08/27/16 03:00 Lactulose 30 ml 30 ml DAILY PRN PO 08/27/16 03:00 Azithromycin 500 mg/Sodium Chloride 250 ml @ 250 mls/hr Q24H IV 08/28/16 02:00 08/28/16 01:24 (Azactam Inj/NS Inj) 100 ml @ 200 mls/hr Q8H IV 08/27/16 13:00 08/28/16 04:57 (Lopressor) 12.5 mg Q12HR PO 08/27/16 21:00 08/28/16 08:06 (Xanax) 0.5 mg TID PRN PO 08/27/16 12:15 08/28/16 10:33 (Pepcid) 20 mg BID PO 08/27/16 12:15 08/28/16 08:06 (Lasix) 20 mg DAILY PO 08/27/16 12:15 08/28/16 08:06 (Cozaar) 25 mg DAILY PO 08/28/16 09:00 08/28/16 08:06 (Protonix) 40 mg DAILY PO 08/27/16 12:15 08/28/16 08:06 (Carafate) 1 gm QID PO 08/27/16 13:00 08/28/16 08:06 (Vitamin B1) 100 mg DAILY PO 08/28/16 09:00 08/28/16 08:06 (Desyrel) 200 mg HS PO 08/27/16 21:00 08/27/16 20:55 (Pill Splitter) 1 ea UNSCH PRN OTHER 08/27/16 12:30 (Morphine Inj) 4 mg Q3H PRN IV PUSH 08/27/16 16:00 08/28/16 10:34 (SoluMEDROL INJ) 40 mg Q6HR IV PUSH 08/27/16 18:00 08/28/16 04:57 Miscellaneous Information Patient in critical care unit? Ass... Q361D .XX 08/27/16 14:45 (Chlorhexidine 2% Cloth) 3 pack DAILY@04 TOPICAL 08/28/16 04:00 09/01/16 04:01 08/28/16 04:00 (Chlorhexidine 2% Cloth) 3 pack UNSCH PRN TOPICAL 08/27/16 14:45 09/01/16 14:36 (Symbicort 160-4.5 Inh) 2 puff Q12HR INH 08/28/16 10:15 Vital Signs / I&O Vital Signs Date Time Temp Pulse Resp B/P Pulse Ox O2 Delivery O2 Flow Rate FiO2 08/28/16 07:54 100 Nasal Cannula 3.00 08/28/16 06:00 103 08/28/16 04:00 106 08/28/16 04:00 98.5 106 22 92/55 100 08/28/16 00:00 113 08/28/16 00:00 98.3 113 11 82/52 97 08/27/16 22:00 110 08/27/16 20:00 116 08/27/16 20:00 98.1 116 28 97/58 100 08/27/16 19:35 99 Nasal Cannula 4.00 08/27/16 18:00 114 08/27/16 16:00 114 08/27/16 16:00 98.8 110 24 100/96 99 08/27/16 14:00 110 08/27/16 14:00 98.8 125 24 94/62 99 08/27/16 12:00 110 08/27/16 10:50 98.0 26 110/64 91 I/O 08/27/16 08/27/16 08/27/16 08/28/16 7/1/17 7/1/17 07:00 15:00 23:00 07:00 15:00 23:00 Intake Total 1205 ml 1066 ml 895 ml Output Total 800 ml Balance 405 ml 1066 ml 895 ml Intake Oral 380 ml 360 ml 240 ml IV Total 825 ml 706 ml 655 ml Output Urine Total 800 ml # Voids 1 1 # Bowel Movements 0 0 Physical Exam Alert Decreased breath sounds on right CV S1S2 tachycardic No edema. Echo mild dcreased LV function Laboratory Laboratory Tests Test 08/27/16 08/28/16 18:45 05:45 Pleural Fluid pH 8.0 Pleural Fluid WBC 184 /MM3 Pleural Fluid RBC 138 /MM3 Pleural Fluid Neutrophils 50 % Pleural Fluid Lymphocytes 47 % Pleural Fluid Eosinophils 1 % Pleural Fluid Basophils 1 % Pleural Fluid Histiocytes 1 % White Blood Count 8.9 TH/MM3 Red Blood Count 2.76 MIL/MM3 Hemoglobin 8.3 GM/DL Hematocrit 25.1 % Mean Corpuscular Volume 90.9 FL Mean Corpuscular Hemoglobin 30.2 PG Mean Corpuscular Hemoglobin 33.2 % Concent Red Cell Distribution Width 16.6 % Platelet Count 359 TH/MM3 Mean Platelet Volume 6.9 FL Neutrophils (%) (Auto) 93.4 % Lymphocytes (%) (Auto) 2.7 % Monocytes (%) (Auto) 3.8 % Eosinophils (%) (Auto) 0.0 % Basophils (%) (Auto) 0.1 % Neutrophils # (Auto) 8.3 TH/MM3 Lymphocytes # (Auto) 0.2 TH/MM3 Monocytes # (Auto) 0.3 TH/MM3 Eosinophils # (Auto) 0.0 TH/MM3 Basophils # (Auto) 0.0 TH/MM3 CBC Comment DIFF FINAL Differential Comment Prothrombin Time 13.1 SEC Prothromb Time International 1.2 RATIO Ratio Sodium Level 137 MEQ/L Potassium Level 4.1 MEQ/L Chloride Level 100 MEQ/L Carbon Dioxide Level 32.5 MEQ/L Anion Gap 5 MEQ/L Blood Urea Nitrogen 10 MG/DL Creatinine 0.54 MG/DL Estimat Glomerular Filtration 117 ML/MIN Rate Random Glucose 143 MG/DL Calcium Level 7.8 MG/DL Troponin I 0.38 NG/ML Imaging Last 48 hours Impressions Chest X-Ray 08/27/16 0000 Signed Impressions: Service Date/Time: Saturday, August 27, 2016 20:28 - CONCLUSION: 1. No evidence of pneumothorax. 2. Abnormal airspace opacity and consolidation in the right lung without significant change. 3. The right effusion does not appear significantly changed. Corey Norwood MD Chest Ultrasound 08/27/16 0000 Signed Impressions: Service Date/Time: Saturday, August 27, 2016 09:30 - CONCLUSION: Moderate right pleural effusion, marked for bedside thoracentesis Davon Spain MD Chest X-Ray 08/26/16 2327 Signed Impressions: Service Date/Time: July 23:42 - CONCLUSION: Interval development of a right pleural effusion and dense air space consolidation of the right lung and slight left lung base atelectasis and/or infiltrate. Goldie Brito MD Assessment and Plan Problem List: (1) Elevated troponin Assessment and Plan: Patient apparently has adenocarcinoma of the lung with malignant effusion and intractable pain. I will sign off/ see prn. Cesario Rodríguez MD Aug 28, 2016 10:43
[2016-08-28] MEDS: HYDROmorphone HCL 2 MG TAB PO PRN ×3 (11:51→18:14)
--- NOTE | 2016-08-28 19:44 | PD.CONS ---
[facility] Service Critical Care Medicine [facility] Reason for Consult Respiratory distress Primary Care Physician Unknown History of Present Illness From patient is limited due to respiratory distress. I obtained history as best as possible from patient's daughter, Prashanth. 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 She has been under the treatment of her oncologist Dr. Arias at [facility]. Reportedly she initiated chemotherapy in March but then suffered myocardial infarction and was transferred to ICU where she was reportedly on mechanical ventilation for 3- 4 days. She underwent radiation was reportedly was completed in June. She eventually resumed chemotherapy after her admission to ICU and completed chemotherapy in June or early July. Since her diagnosis in March she has reportedly been rehospitalized 3-4 times at [facility]. Most recently she was admitted for one week with pneumonia. She had been discharged for 1 day when she was brought to [facility] ED with SOB. She had consolidation of the right long and right pleural effusion. She was started on aztreonam and azithromycin.. She underwent thoracentesis with removal of 850 cc of fluid. She has been on about 3 L nasal cannula. Tonight sats dropped into the 70s and she was placed on nonrebreather. Heart rate was in the 140s in sinus tachycardia. She is in severe respiratory distress. She indicates that she would want intubation if needed and is FULL CODE for pulseless arrest. Her son- in-law is at bedside. Review of Systems ROS Limitations: Clinical Condition, Other (severe respiratory distress) Respiratory: COMPLAINS OF: Shortness of breath Cardiovascular: COMPLAINS OF: Dyspnea on Exertion, Lower Extremity Edema Past Family Social History Allergies: Coded Allergies: Keflex (Verified Allergy, Intermediate, RASH, 11/11/15) Penicillin (Verified Allergy, Intermediate, RASH, 11/11/15) Sulfa (Verified Allergy, Intermediate, Hives, 11/11/15) Ampicillin (Verified Allergy, Unknown, 11/11/15) Past Medical History HTN CAD with prior h/o PA ischemic cardiomyopathy Anxiety Duodenal ulcer Laryngeal cancer and lung cancer diagnosed in March 2016 Past Surgical History Patient's daughter reports that she has no known past surgical history Reported Medications Zofran 4 mg every 6 hours as needed for nausea Losartan 25 mg by mouth daily Trazodone 20 mg by mouth daily at bedtime Xanax 0.5 mg by mouth 3 times a day Carvedilol 3.125 mill grams by mouth twice a day Metoprolol 25 mg daily Famotidine 20 g by mouth twice a day Lasix 20 mg by mouth daily Dilaudid for mill grams by mouth every 4 hours when necessary pain Sucralfate 1 g by mouth 4 times a day Pantoprazole 40 g by mouth daily Thiamine 100 mg by mouth daily Family History Brother - "liver cancer" age 54, Brother with lung cancer, living, (pts daughter is unsure of his age) Mother - gastric cancer 70s or 80s. Sister - breast cancer, living at age 54 Social History Smokes 2-3 packs of cigarettes per day for most of her life and then quit 2 months ago Drinks 2-3 six packs per day in addition to liquor for most of her life , quit 2 months ago No history of illicit drug use. No IV drug use Her daughter states that patient has no living will. Patient is not . She has 2 sons and a daughter. Physical Exam Vital Signs Vital Signs Date Time Temp Pulse Resp B/P Pulse Ox O2 Delivery O2 Flow Rate FiO2 08/28/16 18:00 102 08/28/16 16:00 102 08/28/16 15:38 20 08/28/16 14:00 102 08/28/16 12:00 114 08/28/16 10:39 20 08/28/16 08:00 114 08/28/16 07:54 100 Nasal Cannula 3.00 08/28/16 06:00 103 08/28/16 04:00 106 08/28/16 04:00 98.5 106 22 92/55 100 08/28/16 00:00 113 08/28/16 00:00 98.3 113 11 82/52 97 08/27/16 22:00 110 08/27/16 20:00 116 08/27/16 20:00 98.1 116 28 97/58 100 08/27/16 19:35 99 Nasal Cannula 4.00 Physical Exam Temp 98.5. Pulse 140-150, sinus tachycardia, sats 95% on nonrebreather, respiratory rate in the 30s GENERAL: Anxious appearing female with severely labored breathing on nonrebreather SKIN: Warm and dry. HEAD: Atraumatic. Normocephalic. EYES: Pupils equal and round. No scleral icterus. No injection or drainage. ENT: No nasal bleeding or discharge. NECK: Trachea midline. No JVD. CARDIOVASCULAR: Tachycardic, regular, sinus tachycardia on the monitor with rate in the 140s to 150s. No murmurs appreciated. RESPIRATORY: Breath sounds are severely diminished bilaterally. Scant expiratory wheezes noted bilaterally. No Rales. GASTROINTESTINAL: Abdomen soft, non-tender, nondistended. Bowel sounds present. MUSCULOSKELETAL: Extremities without clubbing, cyanosis. 1 + edema BLE, slightly worse on right. NEUROLOGICAL: Awake and alert. Motor grossly within normal limits, moving all extremities spontaneously without focal deficit.. Normal speech. Laboratory Laboratory Tests Test 08/28/16 05:45 White Blood Count 8.9 Red Blood Count 2.76 Hemoglobin 8.3 Hematocrit 25.1 Mean Corpuscular Volume 90.9 Mean Corpuscular Hemoglobin 30.2 Mean Corpuscular Hemoglobin 33.2 Concent Red Cell Distribution Width 16.6 Platelet Count 359 Mean Platelet Volume 6.9 Neutrophils (%) (Auto) 93.4 Lymphocytes (%) (Auto) 2.7 Monocytes (%) (Auto) 3.8 Eosinophils (%) (Auto) 0.0 Basophils (%) (Auto) 0.1 Neutrophils # (Auto) 8.3 Lymphocytes # (Auto) 0.2 Monocytes # (Auto) 0.3 Eosinophils # (Auto) 0.0 Basophils # (Auto) 0.0 CBC Comment DIFF FINAL Differential Comment Prothrombin Time 13.1 Prothromb Time International 1.2 Ratio Sodium Level 137 Potassium Level 4.1 Chloride Level 100 Carbon Dioxide Level 32.5 Anion Gap 5 Blood Urea Nitrogen 10 Creatinine 0.54 Estimat Glomerular Filtration 117 Rate Random Glucose 143 Calcium Level 7.8 Troponin I 0.38 Date/Time Procedure Status Source Growth 08/27/16 18:45 Gram Stain - Final Resulted Fluid Pleural Fluid 08/27/16 18:45 Body Fluid Culture - Preliminary Resulted Fluid Pleural Fluid NO GROWTH IN 24 HOURS. 08/27/16 18:45 Fungal Smear - Final Resulted Fluid Pleural Fluid NO FUNGAL ELEMENTS SEEN. 08/27/16 18:45 Fungal Culture Resulted Fluid Pleural Fluid Pending 08/27/16 18:45 Acid Fast Stain Received Fluid Pleural Fluid Pending 08/27/16 18:45 Mycobacterial Culture Received Fluid Pleural Fluid Pending 08/27/16 00:35 Influenza Types A,B Antigen (ELVIS) - Final Complete Nasal Washing NEGATIVE FOR FLU A AND B ANTIGEN.... Result Diagram: 08/28/1654408/28/16544 Assessment and Plan Assessment and Plan NEURO: History of alcohol abuse Anxiety Insomnia Reportedly quit drinking 2 months ago Precedex to facilitate BiPAP tolerance. Morphine as needed for pain Trazodone 200 mg by mouth daily at bedtime On thiamine 100 mg by mouth daily RESP: Acute hypercapnic respiratory failure Stage IV Lung cancer/laryngeal cancer Right pleural effusion COPD History of tobacco abuse Placed on BiPAP 15 45% due to high work of breathing and hypoxia. Patient does state that she would want intubation if needed, however this may place her in situation where she cannot be weaned due to terminal cancer and I have discussed that with her and her daughter. Thoracentesis 08/27 with 850 removal. CTA obtained - negative for PE. There is a large cavitary mass with destruction of RUL. Collapse of RUL, RML and RLL, consolidation RLL . Mild residual L pleural effusion. Symbicort 2 puffs inhaled every 12 hours DuoNeb every 4 hours. Albuterol every 2 hours as needed Solu-Medrol 40 g IV every 6 Antibiotics for postobstructive pneumonia as per below CV: Sinus tachycardia Coronary artery disease Chronic systolic heart failure history of hypertension Metoprolol 12.5 mill grams by mouth every 12 hours Losartan 25 mill grams by mouth daily Lasix 20 mg by mouth daily 2-D echo 08/27/16ejection fraction 40-45%. Normal wall thickness. Mild MR. Mild to moderate TR. Pulmonary artery pressure 41 mmHg Troponins mildly elevated, peaked at 0.8. Cardiology evaluated, Dr. Rodríguez. No further cardiac workup planned, cardiology has signed off. GI: History of duodenal ulcer Nothing by mouth while on BiPAP. Then heart healthy diet as tolerated Sucralfate 1 g by mouth 4 times a day, famotidine 20 mill grams by mouth twice a day FEN/RENAL: Hyponatremia, resolved Voiding. place edmond if needed. Lasix as per above. Place electrolytes as indicated per ICU electrolyte replacement protocol. ID: Leukocytosis Postobstructive pneumonia Pleural fluid culture from 08/27 no growth to date. Fungal smear negative. Fungal culture and AF stain pending. Influenza screen negative on 6/30 Sputum culture ordered but patient unable to produce specimen. On aztreonam and azithromycin. Add Flagyl for anaerobic coverage given postobstructive process HEME: Stage IV cancer lung/larynx Chronic anemia S/p chemo and radiation Monitor CBC Oncologist is Dr. Arias at [facility] CTA negative for PE on 08/28. Followup bilateral lower extremity ultrasound to evaluate for DVT. ENDO: Mild hyperglycemia may be secondary to steroids. Insulin low-dose sliding scale ac/hs PROPH: SCDs and Heparin 5000 units subcutaneous every 12 hours for DVT prophylaxis. FAmotidine for stress ulcer prophylaxis/h/o duodenal ulcer. ACCESS: PIV providing adequate access at this time Patient is critically ill with acute hypercapneic respiratory with high risk for further deterioration. Patient and her daughter Prashatnh were updated. Prashanth's number is [phone]. Pts prognosis is poor. Pt desires FULL CODE. Discussed this may result in prolonged suffering given her severe pain and terminal condition,however will honor her wishes and intubate if necessary. When reassessed on Bipap she was comfortable and tolerating. Palliative care consulted previously. CCT 60 minutes exclusive of separately billable procedures Hailey Davis MD Aug 28, 2016 19:44
--- NOTE | 2016-08-28 19:46 | RADRPT ---
EXAM DATE/TIME: 08/28/2016 19:15 [place] COMPARISON: CHEST SINGLE AP, August 27, 2016, 20:28. INDICATIONS : Respiratory failure. MEDICAL HISTORY : Chronic obstructive pulmonary disease. SURGICAL HISTORY : None. ENCOUNTER: Subsequent ACUITY: 4 - 6 days PAIN SCORE: 0/10 LOCATION: Bilateral chest FINDINGS: There is opacification of much of the right chest consistent with right lung consolidation and at fab st a moderate right pleural effusion. There is underlying interstitial prominence throughout. A signi ficant left effusion is not seen. The heart size is normal. CONCLUSION: Moderate right pleural effusion with accompanying atelectasis or consolidation in the right mid and l ower lung. There is underlying interstitial prominence which could be from edema or chronic interstit ial disease. Davon Meraz MD on August 28, 2016 at 19:42 Board Certified Radiologist. This report was verified electronically.
[2016-08-28] MEDS: DEXMEDETOMIDINE INJ 200 MCG in SODIUM CHLORIDE 0.9% INJ 50 ML IV SCH ×2 (19:47→23:46)
--- NOTE | 2016-08-28 20:30 | MR ---
cc: JYOTI NOVAK DATE: 08/27/2016. PROCEDURE: Right thoracentesis PREOPERATIVE DIAGNOSIS: Right pleural effusion. ANESTHESIA: 1% Xylocaine. SURGEON Jyoti Novak MD. PROCEDURE AND FINDINGS: The patient's right posterior back was prepped with chlorhexidine solution following which sterile drapes were applied. 1% Xylocaine was then injected into the intercostal space in the posterior axillary line after which a small incision was made with a scalpel blade. Following this, a 14-gauge catheter was inserted in the pleural space and this was connected to a vacuum bottle. Approximately 900 cc of serosanguineous fluid was aspirated. The patient tolerated procedure well. MD EMELY Jordan/JACOB /6:46 PM /8:28 PM
[2016-08-28] MEDS ORDERED: IOHEXOL 350 MG/ML 10 ML VIAL (for RAD DIAG) IV ONE (21:13)
--- NOTE | 2016-08-28 21:39 | RADRPT ---
EXAM DATE/TIME: 08/28/2016 21:00 [facility] COMPARISON: CHEST SINGLE AP, August 28, 2016, 19:15. INDICATIONS : Short of breath. IV CONTRAST: 73 cc Omnipaque 350 (iohexol) IV RADIATION DOSE: 7.02 CTDIvol (mGy) MEDICAL HISTORY : Cardiovascular disease. Hypertension. SURGICAL HISTORY : None. ENCOUNTER: Initial ACUITY: 1 day PAIN SCALE: 0/10 LOCATION: chest TECHNIQUE: Volumetric scanning of the chest was performed using a pulmonary embolism protocol MIP images were re constructed. Using automated exposure control and adjustment of the mA and/or kV according to patien t size, radiation dose was kept as low as reasonably achievable to obtain optimal diagnostic quality images. DICOM format image data is available electronically for review and comparison. FINDINGS: PULMONARY ARTERIES: No filling defects are seen in the pulmonary arteries through the segmental level. LUNGS: There is collapse of the right middle lobe and portions of the right upper and right lower lobes. The re is cystic change/cavitary change in the right upper lung. There is nodular interstitial disease se en throughout the aerated portion of the right lower lobe. There is atelectasis or consolidation of t he left lingula. There is there some minimal patchy density at the medial superior segment of the lef t lower lobe and at the anterior left upper lobe. PLEURAE: There is a mild right pleural effusion and a minimal left effusion. MEDIASTINUM: There is increased soft tissue density at the right paratracheal mediastinum concerning for a central mass. There is increased density in the subcarinal region MUSCULOSKELETAL: There old second through eighth left rib fractures and first through eighth right rib fractures. MISCELLANEOUS: The visualized upper abdominal organs demonstrate no acute abnormality. CONCLUSION: 1. No pulmonary embolus. 2. Cavitary mass or destructive change of the right upper lung. 3. Increase of distention the right paratracheal region and right hilar region concerning for possibl e right central mass. 4. Collapse of portions of the right upper lobe, right middle lobe and right lower lobe. 5. Mild right pleural effusion. 6. Patchy areas of density seen in the left lung as described above likely related to mild atelectasi s or consolidation. There is a minimal left effusion. Davon Meraz MD on August 28, 2016 at 21:30 Board Certified Radiologist. This report was verified electronically.
[2016-08-28 21:44] LABS: BLOOD GAS BASE EXCESS 4.8 mmol/L (-2-2); BLOOD GAS CARBOXYHEMOGLOBIN 1.8 % (0-4); BLOOD GAS HCO3 30 mmol/L (22-26); BLOOD GAS METHEMOGLOBIN 0.8 % (0-2); BLOOD GAS O2 HGB SATURATION 94 % (90-100); BLOOD GAS OXYGEN CONTENT 11.9 Vol % (12.0-20.0); BLOOD GAS PCO2 55 mmHg (38-42); BLOOD GAS PO2 88 mmHg (61-120); BLOOD GAS TOTAL HGB 8.9 G/DL (12.0-16.0); TEMP CORR TO 98.6
[2016-08-28 21:45] LABS: CRITICAL VALUE YES; DRAW SITE LT RADIAL; FIO2 45 %; NUMBER OF ARTERIAL PUNCTURES 1; OXYGEN DEVICE BIPAP; ULNAR PULSE PRESENT; VENT SETTINGS 15 IPAP/5 EPAP
[2016-08-28 21:46] LABS: STAT YES
[2016-08-28] MEDS: traZODone HCL 100 MG TAB PO SCH (23:44)
[2016-08-29] VITALS (25 sets, daily range): BP systolic 74–110; BP diastolic 46–77; PULSE 88–123; RESP 11–26; TEMP 97–99.1; O2SAT 77–100
[2016-08-29] MEDS: AZITHROMYCIN INJ 500 MG in SODIUM CHLOR 0.9% 250 ML INJ 250 ML IV SCH (00:31)
[2016-08-29] MEDS: methylPREDNISolone SOD SUCC 40 MG/1 ML VIAL IV PUSH SCH ×5 (00:32→22:27)
[2016-08-29] MEDS: DEXMEDETOMIDINE INJ 200 MCG in SODIUM CHLORIDE 0.9% INJ 50 ML IV SCH ×2 (00:36→12:32)
[2016-08-29] MEDS: CHLORHEXIDINE GLUCONATE 2 % 1 PACK (2 CLOTHS)(taper/protocol) TOPICAL SCH (04:00)
[2016-08-29] MEDS: metroNIDAZOLE 500 MG INJ 100 ML IV SCH ×3 (04:05→16:22)
[2016-08-29] MEDS: RESP: ALBUTEROL 2.5 MG/IPRATROPIUM 0.5 MG NEB (SCH) NEB ×6 (04:30→23:10)
[2016-08-29] MEDS: AZTREONAM INJ 2,000 MG in SODIUM CHLORIDE 0.9% INJ 100 ML IV SCH ×3 (06:25→20:37)
[2016-08-29] MEDS: MORPHINE SULFATE 4 MG/ML INJ IV PUSH PRN ×4 (06:37→20:40)
[2016-08-29] MEDS ORDERED: POTASSIUM CHLOR 20 MEQ PREMIX 100 ML IV PRN ×2 (07:15)
[2016-08-29] MEDS ORDERED: DEXTROSE 50% IN WATER 50 ML VIAL(D50) IV PRN (07:15)
[2016-08-29] MEDS ORDERED: POTASSIUM CHLOR 40 MEQ PREMIX 100 ML IV PRN ×2 (07:15)
[2016-08-29] MEDS ORDERED: GLUCAGON 1 MG/ML VIAL OTHER PRN (07:15)
[2016-08-29] MEDS ORDERED: MAGNESIUM SULFATE INJ 2 GM in SODIUM CHLORIDE 0.9% INJ 96 ML IV PRN (07:15)
[2016-08-29] MEDS ORDERED: POTASSIUM PHOSPHATE MONOBASIC 500 MG TAB PO/TUBE PRN (07:15)
[2016-08-29] MEDS ORDERED: MAGNESIUM OXIDE 400 MG TAB PO PRN (07:15)
[2016-08-29] MEDS ORDERED: POTASSIUM PHOSPHATE MONOBASIC 500 MG TAB PO PRN (07:15)
[2016-08-29] MEDS ORDERED: POTASSIUM CHLORIDE 25 MEQ EFFERVESCENT TAB PO PRN (07:15)
[2016-08-29] MEDS ORDERED: MAGNESIUM SULFATE INJ 4 GM in SODIUM CHLORIDE 0.9% INJ 92 ML IV PRN (07:15)
[2016-08-29] MEDS ORDERED: SODIUM PHOSPHATE INJ 30 MMOL in SODIUM CHLOR 0.9% 250 ML INJ 240 ML IV PRN (07:15)
[2016-08-29] MEDS ORDERED: POTASSIUM PHOSPHATE INJ 30 MMOL in SODIUM CHLOR 0.9% 250 ML INJ 250 ML IV PRN (07:15)
[2016-08-29] MEDS: FUROSEMIDE 20 MG TAB PO SCH (07:47)
[2016-08-29] MEDS: THIAMINE HCL 100 MG TAB PO SCH (07:47)
[2016-08-29] MEDS: LOSARTAN 25 MG TAB PO SCH (07:47)
[2016-08-29] MEDS: HEPARIN SODIUM - SQ 10,000 UNITS/ML VIAL SQ SCH ×2 (07:48→20:37)
[2016-08-29] MEDS: SUCRALFATE 1 GM TAB PO SCH ×4 (07:48→20:39)
[2016-08-29] MEDS: METOPROLOL TARTRATE 25 MG TAB PO SCH ×2 (07:48→20:39)
[2016-08-29] MEDS: ALPRAZolam 0.5 MG TAB PO PRN ×3 (07:48→22:27)
[2016-08-29] MEDS: HYDROmorphone HCL 2 MG TAB PO PRN ×4 (07:48→22:28)
[2016-08-29] MEDS: PANTOPRAZOLE SOD 40 MG DELAYED RELEASE TAB PO SCH (07:48)
[2016-08-29] MEDS: SODIUM CHLORIDE 0.9% FLUSH 10 ML FLUSH IV FLUSH SCH ×2 (07:49→20:40)
[2016-08-29] MEDS: BUDESONIDE-FORMOTEROL 160/4.5 MCG INHALER INH SCH ×2 (07:49→20:40)
[2016-08-29] MEDS: FAMOTIDINE 20 MG TAB PO SCH ×2 (09:00→20:39)
--- NOTE | 2016-08-29 09:46 | HHI.PR ---
Subjective Remarks Patient went into resp distress last night placed on BIPAP overnight and now back on 4L oxygen. Afebrile. Placed on Precedex drip for agitation. Objective Vital Signs Vital Signs Date Time Temp Pulse Resp B/P Pulse Ox O2 Delivery O2 Flow Rate FiO2 08/29/16 08:48 20 08/29/16 07:45 98 Nasal Cannula 6.00 08/29/16 07:00 101 20 106/66 97 08/29/16 07:00 101 08/29/16 06:49 21 08/29/16 06:30 123 26 110/76 93 08/29/16 06:30 123 08/29/16 06:29 123 19 109/77 94 08/29/16 06:29 123 08/29/16 06:00 104 16 97 08/29/16 06:00 104 08/29/16 05:00 103 08/29/16 05:00 103 22 93/60 77 08/29/16 04:30 100 25 91/60 08/29/16 04:30 100 08/29/16 04:00 92 08/29/16 04:00 99.0 92 12 90/52 95 08/29/16 03:30 90 08/29/16 03:30 90 13 89/50 96 08/29/16 03:00 88 12 88/50 96 08/29/16 03:00 88 08/29/16 02:30 96 08/29/16 02:30 96 14 87/55 97 08/29/16 02:00 90 14 83/54 98 08/29/16 02:00 90 08/29/16 01:38 93 08/29/16 01:38 93 14 79/51 97 08/29/16 01:30 92 08/29/16 01:30 92 11 74/48 98 08/29/16 01:00 96 15 77/46 94 08/29/16 01:00 96 08/29/16 00:00 99.1 110 16 96/67 98 08/29/16 00:00 110 08/29/16 00:00 95 Nasal Cannula 4.00 08/28/16 23:37 98 45 08/28/16 22:00 105 08/28/16 20:50 99 100 08/28/16 20:00 99.2 119 13 90/64 96 08/28/16 20:00 119 08/28/16 19:20 95 35 08/28/16 18:00 102 08/28/16 16:00 102 08/28/16 14:00 102 08/28/16 12:00 114 I/O 08/28/16 08/28/16 08/28/16 08/29/16 08/29/16 08/29/16 07:00 15:00 23:00 07:00 15:00 23:00 Intake Total 895 ml 1011 ml Balance 895 ml 1011 ml Intake Oral 240 ml 480 ml IV Total 655 ml 531 ml # Voids 1 4 # Bowel Movements 0 0 Result Diagram: 08/28/16 0545 08/28/16 0545 Other Results Laboratory Tests Test 08/28/16 20:30 Blood Gas Puncture Site LT RADIAL Blood Gas Patient Temperature 98.6 Blood Gas HCO3 30 mmol/L Blood Gas Base Excess 4.8 mmol/L Blood Gas Oxygen Saturation 94 % Arterial Blood pH 7.35 Arterial Blood Partial 55 mmHg Pressure CO2 Arterial Blood Partial 88 mmHg Pressure O2 Arterial Blood Oxygen Content 11.9 Vol % Arterial Blood 1.8 % Carboxyhemoglobin Arterial Blood Methemoglobin 0.8 % Blood Gas Hemoglobin 8.9 G/DL Oxygen Delivery Device BIPAP Blood Gas Ventilator Setting 15 IPAP/5 EPAP Blood Gas Inspired Oxygen 45 % Objective Remarks GENERAL: Patient is 55 yo sitting up in chair in NAD SKIN: Warm and dry. HEAD: Normocephalic. EYES: No scleral icterus. No injection or drainage. NECK: Supple, trachea midline. No JVD or lymphadenopathy. CARDIOVASCULAR: Tachycardic without murmurs, gallops, or rubs. RESPIRATORY: Breath sounds equal bilaterally. Diminished BS. GASTROINTESTINAL: Abdomen soft, non-tender, nondistended. MUSCULOSKELETAL: No cyanosis, or edema. Neuro: Awake and alert A/P Assessment and Plan 1)Resp Insuff 2)Hx Throat and Lung ca 3)Right pleural effusion s/p thoracentesis 4)COPD exac 5)Right sided pneumonia 6)Mild elevated trop 7)Anemia Plan Continue with oxygen keep sat >92% Bronchodilators( Duoneb), Symbicort Continue with IV steroids- Solumederol 40mg Q6 NIPPV PRN for resp distress CT chest reviewed showed no evidence of PE, partial collapse of right lung with destructive changes vs cavitary mass RUL. Patient is high risk for bronch given her resp distress will consider bronch if gets intubated. Onc eval. s/p US guided thoracentesis follow up on fluid analysis/culture- NGTD Continue with abx ( Aztreonam, Azithromycin) Monitor for signs of infections ( Fever, WBC) Check strep pneumonia and Legionella urinary AG Nasal washing negative for Influenza on 08/27 Echo showed EF 40-45% Continue with diuretics- On Lasix 20mg daily, GI/DVT prophylaxis on Protonix and Heparin respectively. For US LE r/o DVT Palliative care consulted to asses with goals of care Holly Hatfield MD Aug 29, 2016 09:46
[2016-08-29 09:56] LABS: HEMATOCRIT 26.6 % (35.0-46.0); MEAN CELL VOLUME 88.8 FL (80.0-100.0); MEAN CORPUSCULAR HEMOGLOBIN 30.7 PG (27.0-34.0); MEAN CORPUSCULAR HGB CONC 34.5 % (32.0-36.0); PLATELET COUNT 312 TH/MM3 (150-450); RED CELL DISTRIBUTION WIDTH 16.1 % (11.6-17.2); REVIEW FLAG FINAL; WHITE BLOOD COUNT 9.6 TH/MM3 (4.0-11.0)
[2016-08-29 10:02] LABS: BICARBONATE 27.2 MEQ/L (21.0-32.0); POTASSIUM 4.1 MEQ/L (3.5-5.1)
--- NOTE | 2016-08-29 10:34 | RADRPT ---
EXAM DATE/TIME: 08/29/2016 09:34 [facility] COMPARISON: No previous studies available for comparison. INDICATIONS : Bilateral leg swelling. MEDICAL HISTORY : Hypercholesterolemia. Hypertension. Renal calculi. COPD. Pneumonia. Dyspnea. ETOH use. SURGICAL HISTORY : None. ENCOUNTER: Initial ACUITY: 1 day PAIN SCORE: 6/10 LOCATION: Bilateral leg. TECHNIQUE: Venous ultrasound of the left and right leg was performed from the inguinal ligament to the proximal calf. Real-time, color Doppler and spectral tracing, compression and augmentation techniques were us ed. FINDINGS: RIGHT LEG: There is normal compressibility of the deep venous system from the inguinal region to the proximal ca lf. No echogenic clot is seen in the lumen of the common femoral, femoral, popliteal, and posterior tibial veins. There is a normal response of the venous system to proximal and distal augmentation an d respiration. LEFT LEG: There is normal compressibility of the deep venous system from the inguinal region to the proximal ca lf. No echogenic clot is seen in the lumen of the common femoral, femoral, popliteal, and posterior tibial veins. There is a normal response of the venous system to proximal and distal augmentation an d respiration. CONCLUSION: Normal examination. Jassi Serrano MD on August 29, 2016 at 10:31 Board Certified Radiologist. This report was verified electronically.
[2016-08-29] MEDS: INSULIN ASPART SUPPLEMENTAL SCALE SQ SCH ×3 (11:00→20:27)
--- NOTE | 2016-08-29 11:33 | HHI.PR ---
Subjective Remarks Drowsy this a.m., pain is more controlled Bilateral leg pain, generalized pain all over Tachycardic Tachypnea respirations Temp low-grade 99 Condition guarded (Ibeth Gottlieb) Objective Objective Results - Vital Signs Date Time Temp Pulse Resp B/P Pulse Ox O2 Delivery O2 Flow Rate FiO2 08/29/16 08:48 20 08/29/16 07:45 98 Nasal Cannula 6.00 08/29/16 07:00 101 20 106/66 97 08/29/16 07:00 101 08/29/16 06:49 21 08/29/16 06:30 123 26 110/76 93 08/29/16 06:30 123 08/29/16 06:29 123 19 109/77 94 08/29/16 06:29 123 08/29/16 06:00 104 16 97 08/29/16 06:00 104 08/29/16 05:00 103 08/29/16 05:00 103 22 93/60 77 08/29/16 04:30 100 25 91/60 08/29/16 04:30 100 08/29/16 04:00 92 08/29/16 04:00 99.0 92 12 90/52 95 08/29/16 03:30 90 08/29/16 03:30 90 13 89/50 96 08/29/16 03:00 88 12 88/50 96 08/29/16 03:00 88 08/29/16 02:30 96 08/29/16 02:30 96 14 87/55 97 08/29/16 02:00 90 14 83/54 98 08/29/16 02:00 90 08/29/16 01:38 93 08/29/16 01:38 93 14 79/51 97 08/29/16 01:30 92 08/29/16 01:30 92 11 74/48 98 08/29/16 01:00 96 15 77/46 94 08/29/16 01:00 96 08/29/16 00:00 99.1 110 16 96/67 98 08/29/16 00:00 110 08/29/16 00:00 95 Nasal Cannula 4.00 08/28/16 23:37 98 45 08/28/16 22:00 105 08/28/16 20:50 99 100 08/28/16 20:00 99.2 119 13 90/64 96 08/28/16 20:00 119 08/28/16 19:20 95 35 08/28/16 18:00 102 08/28/16 16:00 102 08/28/16 14:00 102 08/28/16 12:00 114 I/O 08/28/16 08/28/16 08/28/16 08/29/16 08/29/16 08/29/16 07:00 15:00 23:00 07:00 15:00 23:00 Intake Total 895 ml 1011 ml Balance 895 ml 1011 ml Intake Oral 240 ml 480 ml IV Total 655 ml 531 ml # Voids 1 4 # Bowel Movements 0 0 (Ibeth Gottlieb) Result Diagram: 08/29/1681608/29/16816 ROS General: Fatigue, Weakness, Other (10 point ROS done positives noted) Cardiac: Chest Pain (noncardiac) Pulmonary: Cough, SOB, Wheezing GI: N/V (anorexia) Neuro/MS: Other (anxiety more controlled) (Ibeth Gottlieb) Physical Exam Physical Exam PHYSICAL EXAMINATION GENERAL: This is an he'll female Resting in bed She is drowsy but does respond to verbal stimuli HEAD: Normocephalic alopecia OROPHARYNGEAL: Oropharynx pale dry NECK: Supple. Trachea midline without deviation. CARDIAC: Tachycardia rhythm, rate, S1 and S2 are heard. Distant heart sounds LUNGS: Diminished low volumes to auscultation bilaterally. Mild expiratory wheeze, no audible rhonchi ABDOMEN: Soft, bowel sounds soft EXTREMITIES: Trace edema. NEUROLOGICAL: Patient mood and affect drowsy SKIN: Pale (Ibeth Gottlieb) A/P Assessment and Plan 1. Chest pain, rule out myocardial infarction, rule out cardiovascular disease. 2. Pneumonia bilateral with effusion and infiltrates. 3. Hyponatremia, mild. 4. Protein calorie malnutrition, moderate. 5. History of anxiety. 6. COPD. 7. History of significant tobacco dependence. Vital signs reviewed pulse is mildly tachycardic 101-123, respiratory rate low volumes tachypnea respirations Labs reviewed, renal insufficiency increased B UN 72 creatinine 1.57 Leukocytosis resolved, anemia but no acute blood loss, secondary to her chronic disease History significant of cancer, metastasis Pneumonia, bilateral, appreciate pulmonary input Continue with oxygen keep sat > 92% Bronchodilators( Duoneb), Symbicort Continue with IV steroids- Solumederol 40mg Q6 NIPPV PRN for resp distress Chest CT showed no PE partial collapse of right lung versus cavitary mass right upper lung, continues with shortness of breath and low volumes High risk for bronchoscopy s/p US guided thoracentesis follow up on fluid analysis/culture Continue antibiotics, checking for strep pneumonia and legionella, check for influenza Ultrasound bilateral to rule out DVT Echo showed EF 40-45% For US LE r/o DVT Palliative care consulted to asses with goals of care, currently patient is stating she wants full code full aggressive care, needs support and information. Anxiety, now more controlled wit her pain management, Coverage nutrition, and by mouth fluids, with special attention to increased protein intake Chest pain atypical, cancer and with cough. Appreciate cardiology input, currently we will proceed with medical management for now Patient is debilitated and unable to proceed with any invasive cardiac procedures. 2-D echo pending Generalized condition continues to decline despite aggressive therapy. Patient will benefit from palliative care consult. DVT prophylaxis Discussed with nurse Discussed with Dr. Pena, seen on his behalf (Ibeth Gottlieb) Assessment and Plan Patient seen and examined as above [id number] time spent with patient Labs reviewed CT angiography of thorax and lower extremity ultrasound reviewed No PE or DVT Medications reviewed Discussed with RN Discussed with patient Discussed with [employer]ING [employer]IMMER about plan of care Condition guarded to critical prognosis overall looking poor (Everton Pena MD) Ibeth Gottlieb Aug 29, 2016 11:33 Everton Pena MD Aug 29, 2016 15:42
--- NOTE | 2016-08-29 16:08 | HHI.CCPN ---
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 She has been under the treatment of her oncologist Dr. Arias at [facility]. Reportedly she initiated chemotherapy in March but then suffered myocardial infarction and was transferred to ICU where she was reportedly on mechanical ventilation for 3- 4 days. She underwent radiation was reportedly was completed in June. She eventually resumed chemotherapy after her admission to ICU and completed chemotherapy in June or early July. Since her diagnosis in March she has reportedly been rehospitalized 3-4 times at [facility]. Most recently she was admitted for one week with pneumonia. She had been discharged for 1 day when she was brought to [facility] ED with SOB. She had consolidation of the right long and right pleural effusion. She was started on aztreonam and azithromycin.. She underwent thoracentesis with removal of 850 cc of fluid. She has been on about 3 L nasal cannula. Tonight sats dropped into the 70s and she was placed on nonrebreather. Heart rate was in the 140s in sinus tachycardia. She is in severe respiratory distress. She indicates that she would want intubation if needed and is FULL CODE for pulseless arrest. Her son- in-law is at bedside. Subjective: 08/29: Patient was placed on dexmedetomidine last night and continues on O2 currently at 4 L nasal cannula, having been on BiPAP during the night. Palliative care has been consulted to define goals of care. Objective Vital Signs Date Time Temp Pulse Resp B/P Pulse Ox O2 Delivery O2 Flow Rate FiO2 08/29/16 08:48 20 08/29/16 07:45 98 Nasal Cannula 6.00 08/29/16 07:00 101 106/66 08/29/16 04:00 99.0 08/28/16 23:37 45 Intake and Output 08/28/16 08/28/16 08/29/16 08:00 16:00 00:00 Intake Total 895 ml 421 ml Balance 895 ml 421 ml Result Diagram: 08/29/1681608/29/16816 Other Results Microbiology Date/Time Procedure Status Source Growth 08/27/16 00:35 Influenza Types A,B Antigen (ELVIS) - Final Complete Nasal Washing NEGATIVE FOR FLU A AND B ANTIGEN.... Laboratory Tests Test 08/28/16 20:30 Blood Gas Puncture Site LT RADIAL Blood Gas Patient Temperature 98.6 Blood Gas HCO3 30 mmol/L (22-26) Blood Gas Base Excess 4.8 mmol/L (-2-2) Blood Gas Oxygen Saturation 94 % (90-100) Arterial Blood pH 7.35 (7.380-7.420) Arterial Blood Partial 55 mmHg (38-42) Pressure CO2 Arterial Blood Partial 88 mmHg Pressure O2 (61-120) Arterial Blood Oxygen Content 11.9 Vol % (12.0-20.0) Arterial Blood 1.8 % (0-4) Carboxyhemoglobin Arterial Blood Methemoglobin 0.8 % (0-2) Blood Gas Hemoglobin 8.9 G/DL (12.0-16.0) Oxygen Delivery Device BIPAP Blood Gas Ventilator Setting 15 IPAP/5 EPAP Blood Gas Inspired Oxygen 45 % Imaging Last Impressions Lower Extremity Ultrasound 08/29/16 0000 Signed Impressions: Service Date/Time: Monday, August 29, 2016 09:34 - CONCLUSION: Normal examination. Jassi Serrano MD Chest X-Ray 08/28/16 0000 Signed Impressions: Service Date/Time: Sunday, August 28, 2016 19:15 - CONCLUSION: Moderate right pleural effusion with accompanying atelectasis or consolidation in the right mid and lower lung. There is underlying interstitial prominence which could be from edema or chronic interstitial disease. Davon Meraz MD CT Angiography 08/28/16 0000 Signed Impressions: Service Date/Time: Sunday, August 28, 2016 21:00 - CONCLUSION: 1. No pulmonary embolus. 2. Cavitary mass or destructive change of the right upper lung. 3. Increase of distention the right paratracheal region and right hilar region concerning for possible right central mass. 4. Collapse of portions of the right upper lobe, right middle lobe and right lower lobe. 5. Mild right pleural effusion. 6. Patchy areas of density seen in the left lung as described above likely related to mild atelectasis or consolidation. There is a minimal left effusion. Davon Meraz MD Chest Ultrasound 08/27/16 0000 Signed Impressions: Service Date/Time: Saturday, August 27, 2016 09:30 - CONCLUSION: Moderate right pleural effusion, marked for bedside thoracentesis Davon Spain MD Objective Remarks GENERAL: female resting comfortably in bed on O2 at 4 L nasal cannula currently on a Precedex infusion with a RASS score of -1 SKIN: Warm and dry. HEAD: Atraumatic. Normocephalic. EYES: Pupils equal and round. No scleral icterus. No injection or drainage. ENT: No nasal bleeding or discharge. NECK: Trachea midline. No JVD. CARDIOVASCULAR: Tachycardic, regular, sinus tachycardia on the monitor with rate in the 70-80's No murmurs appreciated. RESPIRATORY: Breath sounds are severely diminished bilaterally. Scant expiratory wheezes noted bilaterally. No Rales. GASTROINTESTINAL: Abdomen soft, non-tender, nondistended. Bowel sounds present. MUSCULOSKELETAL: Extremities without clubbing, cyanosis. 1 + edema BLE, slightly worse on right. NEUROLOGICAL: Awake and alert. Motor grossly within normal limits, moving all extremities spontaneously without focal deficit. Normal speech. A/P Assessment and Plan NEURO: History of alcohol abuse Anxiety Insomnia Reportedly quit drinking 2 months ago Precedex to facilitate BiPAP tolerance, currently as 0.5 Morphine as needed for pain Trazodone 200 mg by mouth daily at bedtime On thiamine 100 mg by mouth daily RESP: Acute hypercapnic respiratory failure Stage IV Lung cancer/laryngeal cancer Right pleural effusion COPD History of tobacco abuse Placed on BiPAP 15/5 45% due to high work of breathing and hypoxia. Patient does state that she would want intubation if needed, however this may place her in situation where she cannot be weaned due to terminal cancer and I have discussed that with her and her daughter. Thoracentesis 08/27 with 850 removal. CTA obtained - negative for PE. There is a large cavitary mass with destruction of RUL. Collapse of RUL, RML and RLL, consolidation RLL . Mild residual L pleural effusion. Symbicort 2 puffs inhaled every 12 hours DuoNeb every 4 hours. Albuterol every 2 hours as needed Solu-Medrol 40 g IV every 6hr Antibiotics for postobstructive pneumonia as per below 7/2: O2 via nasal cannula currently at 4 L, tolerated well with Precedex infusion CV: Sinus tachycardia Coronary artery disease Chronic systolic heart failure history of hypertension Metoprolol 12.5 mill grams by mouth every 12 hours Losartan 25 mill grams by mouth daily Lasix 20 mg by mouth daily 2-D echo 08/27/16ejection fraction 40-45%. Normal wall thickness. Mild MR. Mild to moderate TR. Pulmonary artery pressure 41 mmHg Troponins mildly elevated, peaked at 0.8. Cardiology evaluated, Dr. Rodríguez. No further cardiac workup planned, cardiology has signed off. GI: History of duodenal ulcer Nothing by mouth while on BiPAP. Then heart healthy diet as tolerated Sucralfate 1 g by mouth 4 times a day, famotidine 20 mill grams by mouth twice a day FEN/RENAL: Hyponatremia, resolved Voiding. place edmond if needed. Lasix as per above. Place electrolytes as indicated per ICU electrolyte replacement protocol. ID: Leukocytosis Postobstructive pneumonia Pleural fluid culture from 08/27 no growth to date. Fungal smear negative. Fungal culture and AF stain pending. Influenza screen negative on 08/27 Sputum culture ordered but patient unable to produce specimen. On aztreonam and azithromycin. Add Flagyl for anaerobic coverage given postobstructive process HEME: Stage IV cancer lung/larynx Chronic anemia S/p chemo and radiation Monitor CBC Oncologist is Dr. Arias at [facility] CTA negative for PE on 08/28. 08/29 bilateral lower extremity ultrasound to evaluate for DVT-negative for DVT ENDO: Mild hyperglycemia may be secondary to steroids. Insulin low-dose sliding scale ac/hs PROPH: SCDs and Heparin 5000 units subcutaneous every 12 hours for DVT prophylaxis. Famotidine for stress ulcer prophylaxis/h/o duodenal ulcer. ACCESS: PIV providing adequate access at this time Patient is critically ill with acute hypercapneic respiratory with high risk for further deterioration. 08/28: Patient and her daughter Prashanth were updated. Prashanth's number is . Pts prognosis is poor. Pt desires FULL CODE. Discussed this may result in prolonged suffering given her severe pain and terminal condition,however will honor her wishes and intubate if necessary. When reassessed on Bipap she was comfortable and tolerating. Palliative care consulted previously. This patient remains critically ill with one or more organ systems which are or may become a threat to life. I have spent in excess of 30 minutes discontinuously in the care and management of this patient. This time is exclusive of procedures, and includes, but is not limited to, evaluation of the patient, review of the medical record, discussions with family, consultants, nursing staff, or respiratory therapy, and documentation in the medical record. Physician Mora Hager MD Aug 29, 2016 16:08
--- NOTE | 2016-08-29 17:40 | MB ---
cc: LACI SCHROEDER M.D., ALAA M.D. DATE OF CONSULTATION: 08/29/2016. REASON FOR CONSULTATION: Oncology was consulted to render opinion regarding a patient with lung cancer and neck cancer. REFERRING PHYSICIAN: Dr. Hatfield. HISTORY OF PRESENT ILLNESS: The patient a 55-year-old female admitted to the hospital with shortness of breath and hypoxemia. She is not a very good historian. She cannot tell me specifically her treatment for cancer. Apparently she was diagnosed with both head and neck cancer and right lung cancer around March. I asked her if she had lung cancer that had metastasized to the neck nodes, but she stated that she had two separate cancers. She was treated with chemotherapy first for lung cancer. She had a myocardial infarction and the treatment was stopped for while. She then started treatment with radiation with concurrent chemotherapy every two weeks for the head and neck cancer. She stated her treatment stopped about weeks ago when she was admitted to [facility] for pneumonia. She was just discharged from [facility] early last week but developed worsening shortness of breath and palpitation. EMS was called and she was brought to [facility]. She was found to have a right pleural effusion and just had a thoracentesis two days ago. She is now feeling well. She states all her symptoms have resolve. Her shortness of breath has improved. She wants to go home. She denies any fever, chills, weight loss. She denies any chest pain. She denies any nausea or vomiting, diarrhea or abdominal pain, dysuria, hematuria. She denies any bone pain. PAST MEDICAL HISTORY: 1. Lung cancer. 2. Head and neck cancer. 3. Coronary artery disease. 4. Anxiety. 5. Hypertension. 6. Chronic obstructive pulmonary disease. PAST SURGICAL HISTORY: None. She did not have a port placement. FAMILY HISTORY: Family history positive for cancer. She has two sons and one daughter and all are healthy. SOCIAL HISTORY: Smoked two to three packs a day and quit about two months ago. She also used to drink heavily but quit two months ago. ALLERGIES: 1. AMPICILLIN. 2. KEFLEX. 3. PENICILLIN. 4. SULFA. CURRENT MEDICATIONS: 1. DuoNeb. 2. Symbicort. 3. Losartan. 4. Thiamine. 5. Azithromycin. 6. Metoprolol. 7. Trazodone. 8. Solu-Medrol. 9. Aztreonam. 10. Carafate. 11. Pepcid. 12. Lasix. 13. Protonix. REVIEW OF SYSTEMS: CONSTITUTIONAL: Denies any fever or chills or night sweats or weight loss. EYES: Denies any blurry vision or double vision. ENT: Denies any mouth sores or voice changes. CARDIOVASCULAR: As above. RESPIRATORY: As above. GI: Denies any nausea or vomiting, diarrhea or abdominal pain. : Denies any dysuria or hematuria. MUSCULOSKELETAL: Has chronic pain and is on high-dose opiates. HEMATOLOGIC: Negative. ENDOCRINE: Negative. DERMATOLOGIC: Negative. PSYCHIATRIC: Negative. NEUROLOGIC: Negative. PHYSICAL EXAMINATION: VITAL SIGNS: Temperature 99, pulse 101, blood pressure 106/66,02 saturation 98% on six liters nasal cannula. GENERAL: She is alert and oriented times three and in no acute distress. She is sitting up and appears comfortable. HEAD, EYES, EARS, NOSE, THROAT: Atraumatic, normocephalic. Pupils equal, round, reactive to light. Extraocular muscles intact. No scleral icterus. NECK: Mild hyperpigmentation anterior low neck. No desquamation noted. LYMPHATIC: No palpable cervical, clavicular, axillary or inguinal lymph nodes. CARDIOVASCULAR: Regular S1 and S2. No murmur. LUNGS: Decreased breath sounds right lung. ABDOMEN: Abdomen soft and nontender. I could not palpate the liver or spleen. EXTREMITIES: No cyanosis or clubbing. No edema. BACK: No paravertebral tenderness. SKIN: No rash or petechiae. NEUROLOGIC EXAM: Nonfocal. LABORATORY DATA: Reviewed. ASSESSMENT: 1. Concurrent lung cancer and head and neck cancer. The patient is a rather poor historian and could not tell me specific details. She was quite sure that she had two separate cancers rather than a lung cancer with metastasis to the neck lymph nodes. She is currently under the care of Dr. Arias. She was treated with chemotherapy first but had a myocardial infarction and the chemotherapy was stopped for a while. She recently started daily radiation with concurrent chemotherapy every two weeks. Her last treatment was about three weeks ago. She has been in the hospital for pneumonia since then. She is supposed to see Dr. Arias this coming . She presented with hypoxemia. CT did not show any pulmonary embolism; however, she has a large cavitary mass in the right upper lobe. There is also a suspicious density in the right paratracheal and right hilar area which could be adenopathy. She also had collapse of partial right upper lobe, right middle lobe and right lower lobe. She had right pleural effusion and had 900 cc of pleural fluid removed two days ago which was serosanguineous. Cytology is pending. She is feeling much better since her thoracentesis. In fact, she feels well enough that she wants to go home. At this point, I am not planning on doing any further workup or intervention. She has been seeing Dr. Arias for her treatment and she can follow up with Dr. Arias after discharge to continue her treatment. 2. Chronic obstructive pulmonary disease. She is currently on steroids. 3. Possible right-sided pneumonia. She possibly could have post-obstructive pneumonia. She is currently on antibiotics. Her symptoms have improved. 4. Chronic pain on opioids. 5. Anemia due to chronic disease. Hemoglobin is stable. No apparent bleeding. RECOMMENDATIONS: 1. No other oncologic workup or intervention planned at this time. 2. The patient can follow up with Dr. Arias upon discharge to continue her treatment. 3. Continue supportive care. 4. Await cytology from the pleural fluid. Thank you Dr. Hatfield for asking me to see this patient. MD HAI Barreto/JACOB /2:04 PM /5:24 PM [facility]ITAL[facility]
[2016-08-29] MEDS: traZODone HCL 100 MG TAB PO SCH (20:39)
[2016-08-30] VITALS (15 sets, daily range): BP systolic 78–106; BP diastolic 50–95; PULSE 93–117; RESP 14–36; TEMP 97.8; O2SAT 89–98
[2016-08-30] MEDS: AZITHROMYCIN INJ 500 MG in SODIUM CHLOR 0.9% 250 ML INJ 250 ML IV SCH (01:59)
[2016-08-30] MEDS: metroNIDAZOLE 500 MG INJ 100 ML IV SCH ×3 (01:59→18:00)
[2016-08-30] MEDS: RESP: ALBUTEROL 2.5 MG/IPRATROPIUM 0.5 MG NEB (SCH) NEB ×6 (03:49→23:10)
[2016-08-30] MEDS: CHLORHEXIDINE GLUCONATE 2 % 1 PACK (2 CLOTHS)(taper/protocol) TOPICAL SCH (04:00)
[2016-08-30] MEDS: methylPREDNISolone SOD SUCC 40 MG/1 ML VIAL IV PUSH SCH ×4 (04:14→22:06)
[2016-08-30] MEDS: MORPHINE SULFATE 4 MG/ML INJ IV PUSH PRN ×6 (04:15→23:59)
[2016-08-30] MEDS: AZTREONAM INJ 2,000 MG in SODIUM CHLORIDE 0.9% INJ 100 ML IV SCH ×3 (05:30→20:07)
[2016-08-30] MEDS: INSULIN ASPART SUPPLEMENTAL SCALE SQ SCH ×4 (05:31→20:33)
[2016-08-30] MEDS: METOPROLOL TARTRATE 25 MG TAB PO SCH ×2 (07:42→20:06)
[2016-08-30] MEDS: HYDROmorphone HCL 2 MG TAB PO PRN ×4 (07:42→22:06)
[2016-08-30] MEDS: THIAMINE HCL 100 MG TAB PO SCH (07:43)
[2016-08-30] MEDS: FUROSEMIDE 20 MG TAB PO SCH (07:43)
[2016-08-30] MEDS: FAMOTIDINE 20 MG TAB PO SCH ×2 (07:43→20:05)
[2016-08-30] MEDS: PANTOPRAZOLE SOD 40 MG DELAYED RELEASE TAB PO SCH (07:43)
[2016-08-30] MEDS: SUCRALFATE 1 GM TAB PO SCH ×4 (07:43→20:06)
[2016-08-30] MEDS: SODIUM CHLORIDE 0.9% FLUSH 10 ML FLUSH IV FLUSH SCH ×2 (07:43→20:07)
[2016-08-30] MEDS: LOSARTAN 25 MG TAB PO SCH (07:43)
[2016-08-30] MEDS: BUDESONIDE-FORMOTEROL 160/4.5 MCG INHALER INH SCH ×2 (07:44→20:08)
[2016-08-30] MEDS: HEPARIN SODIUM - SQ 10,000 UNITS/ML VIAL SQ SCH ×2 (07:44→20:05)
--- NOTE | 2016-08-30 11:36 | PD.ONC.PN ---
Subjective Subjective Remarks Afebrile overnight. Wants to be transferred out of [facility]. Still on Precedex. Tolerating nasal cannula O2. Objective Data Date Time Temp Pulse Resp B/P Pulse Ox O2 Delivery O2 Flow Rate FiO2 08/30/16 08:34 20 08/30/16 08:34 20 08/30/16 07:27 97 Nasal Cannula 3.00 08/30/16 06:00 114 08/30/16 04:00 108 08/30/16 04:00 97.8 108 24 99/64 98 08/30/16 03:03 107 20 94/64 96 08/30/16 03:00 112 36 08/30/16 02:00 93 08/30/16 02:00 93 14 86/52 98 08/30/16 01:00 101 20 86/53 97 08/30/16 00:36 105 18 93/50 98 08/30/16 00:00 97.8 112 30 106/65 97 08/30/16 00:00 112 30 97 08/30/16 00:00 112 08/29/16 22:00 105 08/29/16 20:00 106 08/29/16 20:00 97.6 106 18 100/60 96 08/29/16 19:31 99 Nasal Cannula 4.00 08/29/16 19:31 99 Nasal Cannula 4.00 08/29/16 18:00 104 08/29/16 16:00 97.0 97 20 97/48 100 08/29/16 16:00 104 08/29/16 14:00 104 08/29/16 12:00 97 08/29/16 12:00 98.0 105 22 103/76 99 08/30/16 08/30/16 08/30/16 07:00 15:00 23:00 Intake Total 721 ml Balance 721 ml Result Diagram: 08/29/1681608/29/16816 Culture Results Microbiology Date/Time Procedure Status Source Growth 08/27/16 18:45 Gram Stain - Final Complete Fluid Pleural Fluid 08/27/16 18:45 Body Fluid Culture - Final Complete Fluid Pleural Fluid NO GROWTH IN 72 HRS.--AEROBICALLY OR ... 08/27/16 18:45 Acid Fast Stain - Final Resulted Fluid Pleural Fluid NO ACID FAST BACILLI SEEN 08/27/16 18:45 Mycobacterial Culture Resulted Fluid Pleural Fluid Pending 08/27/16 18:45 Fungal Smear - Final Resulted Fluid Pleural Fluid NO FUNGAL ELEMENTS SEEN. 08/27/16 18:45 Fungal Culture Resulted Fluid Pleural Fluid Pending Administered Medications Medications (Trade) Dose Ordered Sig/Luiz Route PRN Reason Start Time Stop Time Status Last Admin Dose Admin Sodium Chloride (NS Flush) 2 ml BID IV FLUSH 08/27/16 09:00 08/30/16 07:43 Acetaminophen (Tylenol) 650 mg Q4H PRN PO TEMP > 100.4 08/27/16 03:00 08/27/16 11:57 Heparin Sodium (Porcine) 5000 units 5,000 units Q12HR SQ 08/27/16 09:00 08/30/16 07:44 Azithromycin 500 mg/Sodium Chloride 250 ml @ 250 mls/hr Q24H IV 08/28/16 02:00 08/30/16 01:59 Aztreonam/Sodium Chloride (Azactam Inj/NS Inj) 100 ml @ 200 mls/hr Q8H IV 08/27/16 13:00 08/30/16 05:30 Metoprolol Tartrate (Lopressor) 12.5 mg Q12HR PO 08/27/16 21:00 08/30/16 07:42 Alprazolam (Xanax) 0.5 mg TID PRN PO ANXIETY 08/27/16 12:15 08/29/16 22:27 Famotidine (Pepcid) 20 mg BID PO 08/27/16 12:15 08/29/16 20:39 Furosemide (Lasix) 20 mg DAILY PO 08/27/16 12:15 08/30/16 07:43 Losartan Potassium (Cozaar) 25 mg DAILY PO 08/28/16 09:00 08/30/16 07:43 Pantoprazole Sodium (Protonix) 40 mg DAILY PO 08/27/16 12:15 08/30/16 07:43 Sucralfate (Carafate) 1 gm QID PO 08/27/16 13:00 08/30/16 07:43 Thiamine HCl (Vitamin B1) 100 mg DAILY PO 08/28/16 09:00 08/30/16 07:43 Trazodone HCl (Desyrel) 200 mg HS PO 08/27/16 21:00 08/29/16 20:39 Morphine Sulfate (Morphine Inj) 4 mg Q3H PRN IV PUSH PAIN SCALE 5 TO 10 08/27/16 16:00 08/30/16 08:29 Methylprednisolone Sodium Succinate (SoluMEDROL INJ) 40 mg Q6HR IV PUSH 08/27/16 18:00 08/30/16 04:14 Chlorhexidine Gluconate (Chlorhexidine 2% Cloth) 3 pack DAILY@04 TOPICAL 08/28/16 04:00 09/01/16 04:01 08/30/16 04:00 Budesonide/ Formoterol Fumarate (Symbicort 160-4.5 Inh) 2 puff Q12HR INH 08/28/16 10:15 08/30/16 07:44 Hydromorphone HCl 2 mg 2 mg Q4H PRN PO PAIN SCALE 1-10 08/28/16 11:45 08/30/16 07:42 Dexmedetomidine HCl 200 mcg/ Sodium Chloride 52 ml @ 0 mls/hr TITRATE IV 08/28/16 19:15 08/29/16 12:32 Metronidazole (Flagyl 500 Mg Inj) 100 ml @ 100 mls/hr Q8H IV 08/29/16 02:00 08/30/16 01:59 Objective Remarks GENERAL: Middle aged female, upright in bed, anxious. SKIN: Warm and dry. HEAD: Normocephalic. EYES: No injection or drainage. NECK: Supple, trachea midline. CARDIOVASCULAR: +S1/S2 RESPIRATORY: diminished at bases. occasional rhonchi. On 3L O2 via NC GASTROINTESTINAL: Abdomen soft, non-tender, nondistended. EXTREMITIES: No cyanosis NEUROLOGICAL: awake and alert, normal speech. Assessment/Plan Problem List: (1) Carcinoma Status: Acute Plan: --Concurrent lung cancer and head and neck cancer. --Dr. Arias patient-->will follow with him upon discharge --recently started daily radiation with concurrent chemotherapy every two weeks. --last treatment was three weeks ago-->has been in the hospital for pneumonia since then. --CT thorax--> ++ large cavitary mass in the right upper lobe. also a suspicious density in the right paratracheal and right hilar area which could be adenopathy. +collapse of partial right upper lobe, right middle lobe and right lower lobe. +right pleural effusion and had 900 cc of pleural fluid removed two days ago which was serosanguineous. Cytology is pending. (2) Pneumonia Status: Acute Plan: --on antibiotic (3) Anemia of chronic disease Status: Acute Plan: --hgb stable Assessment 55y/o female admitted with respiratory insufficiency. Oncology consulted for lung cancer and neck cancer. h/o Lung cancer. Head and neck cancer. Coronary artery disease. Anxiety. Hypertension. Chronic obstructive pulmonary disease. Plan 1. no further oncology w/u planned while inpatient 2. follow up with Dr. Arias upon discharge 3. monitor CBC 4. await cytology Attending Statement The exam, history, and the medical decision-making described in the above note were completed with the assistance of the mid-level provider. I reviewed and agree with the findings presented. I attest that I had a [id number] encounter with the patient on the same day, and personally performed and documented my assessment and findings in the medical record. SOB stable. Fluid cytology is still pending. Continue supportive care. She is supposed to f/u with this to continue her cancer treatment. Jacqui Barahona Aug 30, 2016 11:36 Isidro Elias MD Aug 30, 2016 13:42
--- NOTE | 2016-08-30 12:43 | HHI.PR ---
Subjective Remarks Has some SOB and cough . C/O pain. On precedex,and Dilaudid Objective Vital Signs Date Time Temp Pulse Resp B/P Pulse Ox O2 Delivery O2 Flow Rate FiO2 08/30/16 08:34 20 08/30/16 08:34 20 08/30/16 07:27 97 Nasal Cannula 3.00 08/30/16 06:00 114 08/30/16 04:00 108 08/30/16 04:00 97.8 108 24 99/64 98 08/30/16 03:03 107 20 94/64 96 08/30/16 03:00 112 36 08/30/16 02:00 93 08/30/16 02:00 93 14 86/52 98 08/30/16 01:00 101 20 86/53 97 08/30/16 00:36 105 18 93/50 98 08/30/16 00:00 97.8 112 30 106/65 97 08/30/16 00:00 112 30 97 08/30/16 00:00 112 08/29/16 22:00 105 08/29/16 20:00 106 08/29/16 20:00 97.6 106 18 100/60 96 08/29/16 19:31 99 Nasal Cannula 4.00 08/29/16 19:31 99 Nasal Cannula 4.00 08/29/16 18:00 104 08/29/16 16:00 97.0 97 20 97/48 100 08/29/16 16:00 104 08/29/16 14:00 104 I/O 08/29/16 08/29/16 08/29/16 08/30/16 08/30/16 08/30/16 06:59 14:59 22:59 06:59 14:59 22:59 Intake Total 1011 ml 1050 ml 1057 ml 721 ml Balance 1011 ml 1050 ml 1057 ml 721 ml Intake Oral 480 ml 800 ml 360 ml 240 ml IV Total 531 ml 250 ml 697 ml 481 ml # Voids 4 4 3 4 # Bowel Movements 0 0 0 1 Result Diagram: 08/29/1681608/29/16816 Objective Remarks GENERAL: This is a well-nourished, well-developed patient, in mild distress. CARDIOVASCULAR: Regular rate and rhythm without murmurs, gallops, or rubs. RESPIRATORY: Diffuse expiratory wheezes, diminish breath sounds Right chest GASTROINTESTINAL: Abdomen soft, non-tender,nondistended. Normal active bowel sounds MUSCULOSKELETAL: Extremities without clubbing, cyanosis, or edema. NEURO: Alert & Oriented x4 to person, place, time, situation. Moves all ext x4 Assessment and Plan Assessment and Plan 1. Concurrent lung cancer and head and neck cancer. 2. Chronic obstructive pulmonary disease. She is currently on steroids. 3. Possible right-sided pneumonia. Pleural effusion resolved 4. Chronic pain on opioids. 5. Anemia due to chronic disease. Hemoglobin is stable. No apparent bleeding. Plan : 1. Cont O2 at 3L 2. Nebs qid , duoneb 3. Continue antibiotics 4. CXR ,CBC in am 5. Chemotherapy when discharged 6. Solumedrol 40 mg IV BID Olinda Novak MD Aug 30, 2016 12:43
--- NOTE | 2016-08-30 13:14 | MB ---
cc: PALMER PENA JOHN DATE OF CONSULTATION: 08/30/2016 REASON FOR CONSULTATION Respiratory distress and pleural effusion. HISTORY OF PRESENT ILLNESS This is a 55-year-old white female who was recently in [facility] with pneumonia and atelectasis of the right lower lobe due to a large mass in the right lung. The patient was found to have bilateral effusions as well as obstructive pneumonia due to a large lung mass. She was diagnosed to have a non-small cell lung CA for which she received chemotherapy more than two weeks ago. She was admitted to [facility] with shortness of breath, hypoxia and exacerbation of bronchitis as well as pneumonia and was on antibiotic therapy and oxygen at 4 liter nasal cannula. Repeat chest x-ray done last week showed increase in the atelectasis as well as effusion on the right side. The patient then was placed on BiPAP briefly but did not tolerate it. She signed herself out and came to [facility]. She was admitted with shortness of breath and respiratory failure. The patient is in the intensive care unit. Her chest x-ray upon admission as well as a CT angiogram that was done showed evidence of a cavitary mass in the right upper lung and increased distention of the right paratracheal region as well as collapsed portion of the right upper lobe and right middle lobe and lower lobe with a right pleural effusion. The patient had an ultrasound examination of the chest which demonstrated a moderately large effusion. She needs a thoracentesis. PAST MEDICAL HISTORY 1. COPD. 2. Lung cancer with local extension with lung biopsy done in the past. 3. Kidney stones. ALLERGIES 1. PENICILLIN. 2. SULFA. MEDICATIONS Med list was reviewed from the chart. HABITS The patient smokes a half to one pack per day and done so for over 25 years. No significant alcohol. FAMILY HISTORY Noncontributory. REVIEW OF SYSTEMS The patient has shortness of breath, epigastric distress, chronic back pain, anxiety and depression. The other system review as in present complaint. PHYSICAL EXAMINATION GENERAL: This is an averagely built middle-aged lady who is anxious and dyspneic. VITAL SIGNS: Blood pressure 130/70, pulse 108, respirations 24, temperature 98.2. HEENT: Head is normocephalic. Pupils are reactive and equal. Tongue is dry. Throat is injected. Nasal mucosa is edematous. NECK: Supple. No bruits, venous distention or thyromegaly. CHEST: Decreased excursions with diminished breath sounds over the right mid and upper chest with occasional wheezes bilaterally. HEART: Heart sounds are regular, S1, S2. No murmur. No S3. ABDOMEN: Soft and scaphoid without masses, organomegaly or tenderness. Bowel sounds are active. EXTREMITIES: No lesions. No edema. Reflexes are 1+ with no gross motor deficits. SKIN: No lesions are observed. NEUROLOGIC: No focal deficits are noted. IMPRESSION 1. Obstructive pneumonia with hypoxemia. 2. Large right pleural effusion. 3. Hypotension with sepsis. 4. COPD. 5. Chronic pain. PLAN The patient will have a thoracentesis done on the right and we will continue the antibiotics including Azactam one gram IV q.8h. and Zithromax 500 mg daily. Nebulized DuoNeb solution is added q.i.d. Repeat chest x-ray and coagulation profile to be done. The risks of thoracentesis including bleeding, pneumothorax, respiratory failure, etc. were explained and will go ahead and do a thoracentesis on her. Thank you Dr. Pena for this consultation. MD EMELY Jordan/ARMINDA /12:35 PM /12:58 PM
--- NOTE | 2016-08-30 13:21 | HHI.PR ---
Subjective Interval History Alert, verbal, oriented to place and person, wants to leave the hospital, she has an appointment to have chemotherapy with Dr. Arias tomorrow, complaining of poorly controlled chest pain and back pain, blood pressure has been too low to give her any more narcotics Review of Systems Constitutional Constitutional Remarks Chest pain, back pain, difficulty breathing, since his symptoms reviewed and negative however not reliable Vitals/Results Intake & Output 08/29/16 08/29/16 08/30/16 15:00 23:00 07:00 Intake Total 1050 ml 1057 ml 721 ml Balance 1050 ml 1057 ml 721 ml Intake Oral 800 ml 360 ml 240 ml IV Total 250 ml 697 ml 481 ml # Voids 4 3 4 # Bowel Movements 0 0 1 Vital Signs Vital Signs Date Time Temp Pulse Resp B/P Pulse Ox O2 Delivery O2 Flow Rate FiO2 08/30/16 10:00 114 08/30/16 08:34 20 08/30/16 08:34 20 08/30/16 07:27 97 Nasal Cannula 3.00 08/30/16 06:00 114 08/30/16 04:00 108 08/30/16 04:00 97.8 108 24 99/64 98 08/30/16 03:03 107 20 94/64 96 08/30/16 03:00 112 36 08/30/16 02:00 93 08/30/16 02:00 93 14 86/52 98 08/30/16 01:00 101 20 86/53 97 08/30/16 00:36 105 18 93/50 98 08/30/16 00:00 97.8 112 30 106/65 97 08/30/16 00:00 112 30 97 08/30/16 00:00 112 08/29/16 22:00 105 08/29/16 20:00 106 08/29/16 20:00 97.6 106 18 100/60 96 08/29/16 19:31 99 Nasal Cannula 4.00 08/29/16 19:31 99 Nasal Cannula 4.00 08/29/16 18:00 104 08/29/16 16:00 97.0 97 20 97/48 100 08/29/16 16:00 104 08/29/16 14:00 104 CBC/BMP: 08/29/16 0817 08/29/16 0817 Physical Exam General General Appearance: Anxious Eyes Eye Exam: Pupils Reactive Ears & Nose Ears & Nose Exam: Nasal [place] Throat Throat Exam: Oral [place] & Moist Neck Neck Exam: Trachea Midline Pulmonary Resp Exam: Crackles, Rhonchi Cardiology CV Exam: Irregular, Tachycardia Gastrointestinal/Abdomen GI Exam: Non-Tender, Bowel Sounds Present Musculoskeletal MS Exam: Normal Tone Integumentary Skin Exam: Warm, Dry Neurologic Neuro Exam: Alert, Awake, Oriented, Speech Clear, Moving All Extremities, V[employer] Programmer Equal, No Focal Deficits Psychiatric Psych Exam: Appropriate Responses Assessment/Plan Assessment/Plan Assessment Lung and neck cancer Large right upper lobe cavity Right paratracheal and hilar lymphadenopathy Severe anxiety Possible right sided Pneumonia Refusing blood work Hypoxemia Management Continue antibiotics Pain control as blood pressure would allow it Abdomen lidocaine patch for back pain Steroids bronchodilators Pulmonology and oncology following, thank you Supplemental oxygen Follow labs DVT prophylaxis Discussed with patient Discussed with nurse 35 minutes Gerardo Ojeda MD Aug 30, 2016 13:21
--- NOTE | 2016-08-30 13:59 | PD.CONS ---
Consult Service Palliative Care Consult Requested By Dr. Pena . Primary Care Physician Unknown . Reason for Consultation a. To assist with evaluation and management of symptoms including: Dyspnea, pain b. To assist medical decision maker(s) with: better understanding of current medical conditions; weighing benefits/burdens of medical treatment options; making medical treatment decisions. . HPI History of Present Illness This 55-year-old female, with a past history of COPD, alcohol abuse, chronic back pain, and anxiety, was found to have a stage IV lung cancer and reportedly simultaneously a head and neck cancer in March 2016. She reportedly began chemotherapy but suffered an NJ after the first treatment. She was restarted on chemotherapy after recovering from the NJ, and also underwent radiation therapy that concluded in June 2016. Her most recent chemotherapy dose was about 2 weeks ago. The patient had been admitted to [facility] last week because of pneumonia, and was sent home on 08/25/16. By the next day, the patient was feeling short of breath, and she came to the emergency department here on 08/26/16 where she had low oxygen saturations. Findings in the emergency department included: * Temp 97.8, pulse 118, respirations 22, blood pressure 112/64 * Initial oxygen saturation in the 80s, but 98% on 4 L nasal * White count 16.7, hemoglobin 10.4 * Sodium 134, creatinine 0.42, albumin 1.8 * Elevated troponin * Chest x-ray with right sided near white out, and infiltrate on the left The patient was admitted to the hospital and begun on antibiotics. A subsequent CT scan of the chest revealed a cavitary mass in the right upper lung , a right hilar mass consistent with adenopathy, and some patchy infiltrates on the left. The patient developed hypercapnic respiratory failure and was treated with BiPAP. She underwent thoracentesis, and that also helped to improve her breathing, and she is now just on nasal cannula oxygen. The patient continued to have some dyspnea, and constantly complains of back pain and right anterolateral chest pain. The pains in both areas are constant, not associated with moving. At home prior to her recent hospitalizations, the patient took oral hydromorphone for pain, and she was also on Xanax 3 times per day. Palliative Care was consulted to assist with symptom management, and to enter into discussions with the patient regarding her illnesses, the prognosis, and the benefits and burdens of future treatment options. . Function/Cognitive Trajectory The patient reports she was ambulating independently at home prior to her hospitalization at [facility] last week. She says she had oxygen at home but did not use it most of the time. . Review of Systems Constitutional: COMPLAINS OF: Fatigue, Weight loss (unknown amount) Endocrine: DENIES: Polyuria Eyes: DENIES: Eye inflammation Ears, nose, mouth, throat: DENIES: Epistaxis Respiratory: COMPLAINS OF: Cough, Wheezing, Shortness of breath Cardiovascular: COMPLAINS OF: Dyspnea on Exertion, Lower Extremity Edema (for at least a month or 2) Gastrointestinal: DENIES: Bloody stools, Constipation, Diarrhea, Vomiting blood Genitourinary: DENIES: Hematuria Musculoskeletal: COMPLAINS OF: Back pain (chronic for years), DENIES: Joint Swelling Integumentary: DENIES: Rash Hematologic/Lymphatics: DENIES: Bruising Immunologic/Allergic: DENIES: Urticaria Neurologic: DENIES: Headache, Localized weakness, Paresthesias, Seizures Psychiatric: COMPLAINS OF: Anxiety (chronic for years), DENIES: Hallucinations , Agitation Past Family Social History Coded Allergies: Keflex (Verified Allergy, Intermediate, RASH, 11/11/15) Penicillin (Verified Allergy, Intermediate, RASH, 11/11/15) Sulfa (Verified Allergy, Intermediate, Hives, 11/11/15) Ampicillin (Verified Allergy, Unknown, 11/11/15) Past Medical History * Hypercapnic respiratory failure * Severe COPD * Stage IV lung cancer, status post chemotherapy and radiation over the past 4 months * Reportedly also has an independent head/neck cancer * Pneumonia treated at [facility] last week * CAD, recent NJ, current elevated troponin * History of alcoholism, reportedly sober for more than a couple months * Chronic back pain for years * Malnutrition, albumin 1.8 * Anxiety, chronic * Kidney stones * History of ulcer disease * Hypertension . Past Surgical History Thoracentesis during this hospitalization . Reported Medications Losartan (Losartan Potassium) 25 Mg Tab 25 Mg PO DAILY Pantoprazole (Pantoprazole Sodium) 40 Mg Tab 40 Mg PO DAILY Hydromorphone (Hydromorphone HCl) 4 Mg Tab 4 Mg PO Q4H PRN Sucralfate 1 Gm Tab 1 Gm PO QID on empty stomach Ondansetron Odt 4 Mg Tab 4 Mg SL Q6HR PRN Alprazolam 0.5 Mg Tab 0.5 Mg PO TID PRN Vitamin B-1 (Thiamine Mononitrate) 100 Mg Tab 100 Mg PO DAILY Levofloxacin 750 Mg Tablet 750 Mg PO DAILY Famotidine 20 Mg Tab 20 Mg PO BID Furosemide 20 Mg Tab 20 Mg PO DAILY Trazodone (Trazodone HCl) 100 Mg Tablet 200 Mg PO HS Carvedilol 3.125 Mg Tab 3.125 Mg PO BID Metoprolol Tartrate 25 Mg Tab 25 Mg PO DAILY . Current Medications Medications (Trade) Dose Ordered Sig/Luiz Route Start Time Stop Time Status Last Admin (NS Flush) 2 ml UNSCH PRN IV FLUSH 08/27/16 03:00 (NS Flush) 2 ml BID IV FLUSH 08/27/16 09:00 08/30/16 07:43 (Tylenol) 650 mg Q4H PRN PO 08/27/16 03:00 08/27/16 11:57 (Zofran Inj) 4 mg Q6H PRN IVP 08/27/16 03:00 (Heparin Inj) 5,000 units Q12HR SQ 08/27/16 09:00 08/30/16 07:44 (Narcan Inj) 0.4 mg UNSCH PRN IV 08/27/16 03:00 (Senokot) 17.2 mg Q12H PRN PO 08/27/16 03:00 (Dulcolax Supp) 10 mg DAILY PRN RECTAL 08/27/16 03:00 Lactulose 30 ml 30 ml DAILY PRN PO 08/27/16 03:00 Azithromycin 500 mg/Sodium Chloride 250 ml @ 250 mls/hr Q24H IV 08/28/16 02:00 08/30/16 01:59 (Azactam Inj/NS Inj) 100 ml @ 200 mls/hr Q8H IV 08/27/16 13:00 08/30/16 13:00 (Lopressor) 12.5 mg Q12HR PO 08/27/16 21:00 08/30/16 07:42 (Xanax) 0.5 mg TID PRN PO 08/27/16 12:15 08/29/16 22:27 (Pepcid) 20 mg BID PO 08/27/16 12:15 08/29/16 20:39 (Lasix) 20 mg DAILY PO 08/27/16 12:15 08/30/16 07:43 (Cozaar) 25 mg DAILY PO 08/28/16 09:00 08/30/16 07:43 (Protonix) 40 mg DAILY PO 08/27/16 12:15 08/30/16 07:43 (Carafate) 1 gm QID PO 08/27/16 13:00 08/30/16 13:00 (Vitamin B1) 100 mg DAILY PO 08/28/16 09:00 08/30/16 07:43 (Desyrel) 200 mg HS PO 08/27/16 21:00 08/29/16 20:39 (Pill Splitter) 1 ea UNSCH PRN OTHER 08/27/16 12:30 (Morphine Inj) 4 mg Q3H PRN IV PUSH 08/27/16 16:00 08/30/16 12:15 Miscellaneous Information Patient in critical care unit? Ass... Q361D .XX 08/27/16 14:45 (Chlorhexidine 2% Cloth) 3 pack DAILY@04 TOPICAL 08/28/16 04:00 09/01/16 04:01 08/30/16 04:00 (Chlorhexidine 2% Cloth) 3 pack UNSCH PRN TOPICAL 08/27/16 14:45 09/01/16 14:36 (Symbicort 160-4.5 Inh) 2 puff Q12HR INH 08/28/16 10:15 08/30/16 07:44 Hydromorphone HCl 2 mg 2 mg Q4H PRN PO 08/28/16 11:45 08/30/16 12:15 Dexmedetomidine HCl 200 mcg/ Sodium Chloride 52 ml @ 0 mls/hr TITRATE IV 08/28/16 19:15 08/29/16 12:32 (Flagyl 500 Mg Inj) 100 ml @ 100 mls/hr Q8H IV 08/29/16 02:00 08/30/16 10:00 (D50w (Vial) Inj) 50 ml UNSCH PRN IV 08/29/16 07:15 Glucagon 1 mg 1 mg UNSCH PRN OTHER 08/29/16 07:15 Potassium Chloride 100 ml @ 50 mls/hr Q2H PRN IV 08/29/16 07:15 (KCl 20 Meq Premix Inj) 100 ml @ 50 mls/hr Q2H PRN IV 08/29/16 07:15 Potassium Bicarb/ Potassium Chloride 50 meq 50 meq UNSCH PRN PO 08/29/16 07:15 Potassium Chloride 100 ml @ 25 mls/hr UNSCH PRN IV 08/29/16 07:15 Potassium Chloride 100 ml @ 50 mls/hr Q2H PRN IV 08/29/16 07:15 (Magnesium Sulfate Inj/NS Inj) 100 ml @ 50 mls/hr UNSCH PRN IV 08/29/16 07:15 Magnesium Oxide 800 mg 800 mg UNSCH PRN PO 08/29/16 07:15 (Magnesium Sulfate Inj/NS Inj) 100 ml @ 50 mls/hr UNSCH PRN IV 08/29/16 07:15 Potassium Phosphate 2000 mg 2,000 mg Q4H PRN PO 08/29/16 07:15 (Sodium Phosphate Inj/NS 250 ml Inj) 250 ml @ 42 mls/hr UNSCH PRN IV 08/29/16 07:15 Potassium Phosphate 2000 mg 2,000 mg UNSCH PRN PO/TUBE 08/29/16 07:15 (Potassium Phosphate Inj/NS 250 ml Inj) 260 ml @ 42 mls/hr UNSCH PRN IV 08/29/16 07:15 (SoluMEDROL INJ) 40 mg Q8HR IV PUSH 08/30/16 14:00 Family History The patient has a family history that reveals multiple cancer patients: Brother at age 54 of liver cancer, one brother is living with lung cancer, mother in her 70s with gastric cancer, and a sister is living at age 54 with breast cancer. . Substance Use Tobacco: The patient has smoked more than one pack per day since the age of 12 Alcohol: Patient drank heavily in the past, but reports that she quit in recent weeks. One emergency department visit a couple years ago revealed a blood alcohol level of 308. Prescription med abuse: None Illicits: None . Psychosocial History The patient was born in [place] but lived in this area her entire life. She currently lives with her 16-year-old daughter and her 37-year-old son Travis. The patient has 2 sons and a daughter. She has worked "a few odd jobs" over the years, including working at the [employer]. . Spiritual/Cultural Factors The patient has a Mor[employer] background, and reports that [facility] is [facility] [place]; she reports that her residential substance abuse counselor is aware of her current illness and she receives support from him. . Living Will: Never completed Durable Power of Cafe Site Attendant: Never completed Health Care Surrogate(s): We are completing a healthcare surrogate form today. She has named her son Travis Boswell as her HCS.. Today's verbally stated goals: The patient is adamant about NOT talking to me about prognosis: "just stop right there, I will not talk about that." Her goal is to get out of the hospital and get back home, and she plans on following up with her oncologist, Dr. Arias, after that. When the patient said "I probably have 5 or 10 years ," I told her that "most people with stage IV lung cancer and bad COPD only live months not years." She again said "I will not talk about that, don't talk about that." She did confirm that she wanted to be FULL CODE, and reluctantly acknowledged that if she was mechanically ventilated it is likely that she may never come off the vent. She also asked that I not speak with any of her family members about her diagnoses or prognosis. Family/friends goals: The patient would not allow me to talk to any of her family members. . Ethical and Legal Issues There are no ethical issues that would impact her care or decision-making at this time. The patient has capacity for decision-making. She is completing her HCS form today naming her son Travis Boswell as her HCS. . Physical Exam Vital Signs Date Time Temp Pulse Resp B/P Pulse Ox O2 Delivery O2 Flow Rate FiO2 08/30/16 10:00 114 08/30/16 08:34 20 08/30/16 08:34 20 08/30/16 07:27 97 Nasal Cannula 3.00 08/30/16 06:00 114 08/30/16 04:00 108 08/30/16 04:00 97.8 108 24 99/64 98 08/30/16 03:03 107 20 94/64 96 08/30/16 03:00 112 36 08/30/16 02:00 93 08/30/16 02:00 93 14 86/52 98 08/30/16 01:00 101 20 86/53 97 08/30/16 00:36 105 18 93/50 98 08/30/16 00:00 97.8 112 30 106/65 97 08/30/16 00:00 112 30 97 08/30/16 00:00 112 08/29/16 22:00 105 08/29/16 20:00 106 08/29/16 20:00 97.6 106 18 100/60 96 08/29/16 19:31 99 Nasal Cannula 4.00 08/29/16 19:31 99 Nasal Cannula 4.00 08/29/16 18:00 104 08/29/16 16:00 97.0 97 20 97/48 100 08/29/16 16:00 104 08/29/16 14:00 104 08/29/16 08/30/16 19:00 07:00 Intake Total 1050 ml 1778 ml Balance 1050 ml 1778 ml Intake Oral 800 ml 600 ml IV Total 250 ml 1178 ml # Voids 4 7 # Bowel Movements 0 1 Exam CONSTITUTIONAL/GENERAL: This is an adequately nourished patient, in no apparent distress. TUBES/LINES/DRAINS: SKIN: No jaundice, rashes, or lesions. Ecchymoses on upper extremities. No wounds seen anteriorly. Skin temperature appropriate. Not diaphoretic. HEAD: Atraumatic. Normocephalic. EYES: Pupils equal and round and reactive. Extraocular motions intact. No scleral icterus. No injection or drainage. Fundi not examined. ENT: Hearing grossly normal. Nose without bleeding or purulent drainage. Throat without visible erythema, exudates, masses, or lesions. NECK: Trachea midline. Supple, nontender. No palpable thyroid enlargement or nodularity. CARDIOVASCULAR: Regular rate and rhythm without murmurs, gallops, or rubs. No JVD. Peripheral pulses symmetric. RESPIRATORY/CHEST: Symmetric, unlabored respirations. Clear to auscultation. Breath sounds equal bilaterally. No wheezes, rales, or rhonchi. GASTROINTESTINAL: Abdomen soft, non-tender, nondistended. No hepato-splenomegaly , or palpable masses. No guarding. Bowel sounds present. GENITOURINARY: Without palpable bladder distension. Silver catheter in place. MUSCULOSKELETAL: Extremities without clubbing, cyanosis, or edema. No joint tenderness or effusion noted. No calf tenderness. No mottling or clubbing. LYMPHATICS: No palpable cervical or supraclavicular adenopathy. NEUROLOGICAL: Awake and alert. Motor and sensory grossly within normal limits. Follows commands. Cognitively sharp. Moves all extremities. PSYCHIATRIC: No obvious anxiety/depression. no apparent hallucinations or other psychotic thought process. Diagnostic Tests Laboratory Laboratory Tests Test 08/27/16 08/28/16 08/28/16 08/29/16 18:45 05:45 20:30 08:17 Pleural Fluid pH 8.0 Pleural Fluid WBC 184 /MM3 (0-10) Pleural Fluid RBC 138 /MM3 (0-0) Pleural Fluid Neutrophils 50 % Pleural Fluid Lymphocytes 47 % Pleural Fluid Eosinophils 1 % Pleural Fluid Basophils 1 % Pleural Fluid Histiocytes 1 % White Blood Count 8.9 TH/MM3 9.6 TH/MM3 (4.0-11.0) (4.0-11.0) Red Blood Count 2.76 MIL/MM3 3.00 MIL/MM3 (4.00-5.30) (4.00-5.30) Hemoglobin 8.3 GM/DL 9.2 GM/DL (11.6-15.3) (11.6-15.3) Hematocrit 25.1 % 26.6 % (35.0-46.0) (35.0-46.0) Mean Corpuscular Volume 90.9 FL 88.8 FL (80.0-100.0) (80.0-100.0) Mean Corpuscular Hemoglobin 30.2 PG 30.7 PG (27.0-34.0) (27.0-34.0) Mean Corpuscular Hemoglobin 33.2 % 34.5 % Concent (32.0-36.0) (32.0-36.0) Red Cell Distribution Width 16.6 % 16.1 % (11.6-17.2) (11.6-17.2) Platelet Count 359 TH/MM3 312 TH/MM3 (150-450) (150-450) Mean Platelet Volume 6.9 FL 7.0 FL (7.0-11.0) (7.0-11.0) Neutrophils (%) (Auto) 93.4 % (16.0-70.0) Lymphocytes (%) (Auto) 2.7 % (9.0-44.0) Monocytes (%) (Auto) 3.8 % (0.0-8.0) Eosinophils (%) (Auto) 0.0 % (0.0-4.0) Basophils (%) (Auto) 0.1 % (0.0-2.0) Neutrophils # (Auto) 8.3 TH/MM3 (1.8-7.7) Lymphocytes # (Auto) 0.2 TH/MM3 (1.0-4.8) Monocytes # (Auto) 0.3 TH/MM3 (0-0.9) Eosinophils # (Auto) 0.0 TH/MM3 (0-0.4) Basophils # (Auto) 0.0 TH/MM3 (0-0.2) CBC Comment DIFF FINAL Differential Comment Prothrombin Time 13.1 SEC (9.8-11.6) Prothromb Time International 1.2 RATIO Ratio Sodium Level 137 MEQ/L 135 MEQ/L (136-145) (136-145) Potassium Level 4.1 MEQ/L 4.1 MEQ/L (3.5-5.1) (3.5-5.1) Chloride Level 100 MEQ/L 101 MEQ/L (98-107) (98-107) Carbon Dioxide Level 32.5 MEQ/L 27.2 MEQ/L (21.0-32.0) (21.0-32.0) Anion Gap 5 MEQ/L (5-15) 7 MEQ/L (5-15) Blood Urea Nitrogen 10 MG/DL (7-18) 9 MG/DL (7-18) Creatinine 0.54 MG/DL 0.45 MG/DL (0.50-1.00) (0.50-1.00) Estimat Glomerular Filtration 117 ML/MIN 144 ML/MIN Rate (>89) (>89) Random Glucose 143 MG/DL 121 MG/DL (74-106) (74-106) Calcium Level 7.8 MG/DL 8.0 MG/DL (8.5-10.1) (8.5-10.1) Troponin I 0.38 NG/ML (0.02-0.05) Blood Gas Puncture Site LT RADIAL Blood Gas Patient Temperature 98.6 Blood Gas HCO3 30 mmol/L (22-26) Blood Gas Base Excess 4.8 mmol/L (-2-2) Blood Gas Oxygen Saturation 94 % (90-100) Arterial Blood pH 7.35 (7.380-7.420) Arterial Blood Partial 55 mmHg (38-42) Pressure CO2 Arterial Blood Partial 88 mmHg Pressure O2 (61-120) Arterial Blood Oxygen Content 11.9 Vol % (12.0-20.0) Arterial Blood 1.8 % (0-4) Carboxyhemoglobin Arterial Blood Methemoglobin 0.8 % (0-2) Blood Gas Hemoglobin 8.9 G/DL (12.0-16.0) Oxygen Delivery Device BIPAP Blood Gas Ventilator Setting 15 IPAP/5 EPAP Blood Gas Inspired Oxygen 45 % Hematology Comments Result Diagram: 08/29/1681608/29/16816 Microbiology Microbiology Date/Time Procedure Status Source Growth 08/27/16 18:45 Gram Stain - Final Complete Fluid Pleural Fluid 08/27/16 18:45 Body Fluid Culture - Final Complete Fluid Pleural Fluid NO GROWTH IN 72 HRS.--AEROBICALLY OR ... 08/27/16 18:45 Acid Fast Stain - Final Resulted Fluid Pleural Fluid NO ACID FAST BACILLI SEEN 08/27/16 18:45 Mycobacterial Culture Resulted Fluid Pleural Fluid Pending 08/27/16 18:45 Fungal Smear - Final Resulted Fluid Pleural Fluid NO FUNGAL ELEMENTS SEEN. 08/27/16 18:45 Fungal Culture Resulted Fluid Pleural Fluid Pending Patient/Family Conference Present at Family Conference: The patient would not allow me to call her son or other family members . Family Conference Time (mins): 46 Family Conference Location: Bedside Issues Discussed: * Palliative care role, purpose, approach * Additional medical, psychosocial, and spiritual history * Patients general health, functional status, and cognitive changes in the months leading up to the current hospitalization * Patient/family understanding of the current medical problems * Patient/family understanding of prognosis * Patients goals of care as best understood from advance directives and/or conversations and/or values * Current medical treatment options and benefits/burdens of those options * Likely scenarios comparing ongoing aggressive care with a transition to comfort measures only * Questions answered to the best of my ability * Palliative care contact information provided The patient is adamant about NOT talking to me about prognosis: "just stop right there, I will not talk about that." Her goal is to get out of the hospital and get back home, and she plans on following up with her oncologist, Dr. Arias, after that. When the patient said "I probably have 5 or 10 years ," I told her that "most people with stage IV lung cancer and bad COPD only live months not years." She again said "I will not talk about that, don't talk about that." She did confirm that she wanted to be FULL CODE, and reluctantly acknowledged that if she was mechanically ventilated it is likely that she may never come off the vent. She also asked that I NOT speak with any of her family members about her diagnoses or prognosis, saying "I will take care of that myself when I get back home." Assessment and Plan Disease Oriented Problem List: (1) hypercapnic respiratory failure (2) severe COPD (3) stage IV lung cancer, status post recent chemotherapy and radiation (4) reportedly also has an independent head/neck cancer (5) pneumonia treated at [facility] last week (6) CAD, recent NJ, current troponin elevations (7) kidney stones (8) history of ulcer disease (9) chronic back pain for years (10) anxiety (11) history of alcoholism, reportedly sober for a couple months (12) malnutrition, albumin 1.8 (13) anxiety, chronic, on TID Xanax for years (14) hypertension Symptom Scale: (1) dyspnea 0-10 Scale: 3 (recently on BiPAP, has severe COPD) (2) anxiety 0-10 Scale: 4 (on chronic Xanax) (3) pain 0-10 Scale: 5 (has been on chronic hydromorphone) Pertinent Non-Medical Issues Psychosocial: Spiritual: The patient has a [employer] background, and reports that she is [facility] [place]; she reports that her residential substance abuse counselor is aware of her current illness and she receives support from him. Legal: The patient has capacity for decision-making. She is completing her HCS form today naming her son Travis Boswell as her HCS. Ethical issues impacting care: Important Contacts Son: Travis Boswell [phone] . Prognosis This patient is terminal. In addition to stage IV lung cancer, she has end- stage COPD. She is declining, coming cachectic, and is malnourished with an albumin of 1.8. She would be appropriate for hospice if her goals became comfort oriented. . Code Status: Full Code Plan * FULL CODE, confirmed by patient 08/30/16 * DECISION-MAKING: The patient has capacity for decision-making. She is now refusing to complete her HCS form today naming her son Travis Boswell as her HCS. * GOALS: The patient is adamant about NOT talking to me about prognosis: "just stop right there, I will not talk about that." Her goal is to get out of the hospital and get back home, and she plans on following up with her oncologist, Dr. Arias, after that. When the patient said "I probably have 5 or 10 years ," I told her that "most people with stage IV lung cancer and bad COPD only live months not years." She again said "I will not talk about that, don't talk about that." She did confirm that she wanted to be FULL CODE, and reluctantly acknowledged that if she was mechanically ventilated it is likely that she may never come off the vent. She also asked that I NOT speak with any of her family members about her diagnoses or prognosis, saying "I will take care of that myself when I get back home." * SYMPTOMS: The patient has had chronic back pain for years, and has been on oral Dilaudid for that; I would recommend her continuing with that same regimen when she gets out of the hospital. She also has chronic anxiety and has been on Xanax at least 3 times per day for a few years, and that should be continued also. I have no other medication recommendations. * The patient initially said she would name her son Travis as HCS, but now is refusing to sign the HCS form. * Palliative Care will continue to follow the patient during this hospitalization. . Thank you for the opportunity to participate in the care of Ms. Boswell. Summer Melgar MD Aug 30, 2016 13:59
--- NOTE | 2016-08-30 14:24 | HHI.HCSW ---
Marine Equipment Sales Engineer Visit Cognitive Functioning Follow-up with Ms. Boswell regarding advanced directive completion as discussed with Dr. Melgar during palliative care consultation. Ms. Boswell is currently sitting in her chair, head down, easily awakens. Appropriate in conversation, fairly pleasant, and able to make needs known. Does not engage much in detailed conversation. . Significant Family/Friend No one at bedside. Does not wish for palliative care to contact anyone. . Pertinent Social History Not . Three children (2 sons, 1 daughter-not of legal age for health care proxy decision making). . Advance Directive Attempted to complete health care surrogate designation paperwork with Ms. Boswell per her request with Dr. Melgar. Met with Ms. Boswell who is currently refusing to complete paperwork although she confirms she wishes for her son, Travis Boswell to serve as health care surrogate.. She states she is tired, wishes to discuss with her son. Explained should something happen where she is unable to make her own decisions we would have to speak with all her children per [place] Statutes. She verbalizes understanding. Did not wish for me to leave paperwork with her at this time. . Follow Up Visit Palliative care will continue to follow throughout hospitalization. SW will follow as needed for emotional and social support. Will continue to assist with advanced directives per patient's wishes. . Ana Lilia Zamora PRODUCT ARCHITECT, FISHERIES DIVER Aug 30, 2016 14:23
--- NOTE | 2016-08-30 15:23 | HHI.CCPN ---
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 She has been under the treatment of her oncologist Dr. Arias at [facility]. Reportedly she initiated chemotherapy in March but then suffered myocardial infarction and was transferred to ICU where she was reportedly on mechanical ventilation for 3- 4 days. She underwent radiation was reportedly was completed in June. She eventually resumed chemotherapy after her admission to ICU and completed chemotherapy in June or early July. Since her diagnosis in March she has reportedly been rehospitalized 3-4 times at [facility]. Most recently she was admitted for one week with pneumonia. She had been discharged for 1 day when she was brought to [facility] with SOB. She had consolidation of the right long and right pleural effusion. She was started on aztreonam and azithromycin.. She underwent thoracentesis with removal of 850 cc of fluid. She has been on about 3 L nasal cannula. Tonight sats dropped into the 70s and she was placed on nonrebreather. Heart rate was in the 140s in sinus tachycardia. She is in severe respiratory distress. She indicates that she would want intubation if needed and is FULL CODE for pulseless arrest. Her son- in-law is at bedside. Subjective: 08/29: Patient was placed on dexmedetomidine last night and continues on O2 currently at 4 L nasal cannula, having been on BiPAP during the night. Palliative care has been consulted to define goals of care. 08/30: doing well today. still complains of anxiety, but specifically asked to be transferred out of ICU to a floor bed. remains on low-dose precedex. breathing improved. Objective Vital Signs Date Time Temp Pulse Resp B/P Pulse Ox O2 Delivery O2 Flow Rate FiO2 08/30/16 12:20 18 08/30/16 10:00 114 08/30/16 07:27 97 Nasal Cannula 3.00 08/30/16 04:00 97.8 99/64 08/28/16 23:37 45 Intake and Output 08/29/16 08/29/16 08/30/16 08:00 16:00 00:00 Intake Total 590 ml 1050 ml 1057 ml Balance 590 ml 1050 ml 1057 ml Result Diagram: 08/29/16 0817 08/29/16 0817 Other Results Microbiology Date/Time Procedure Status Source Growth 08/27/16 18:45 Gram Stain - Final Complete Fluid Pleural Fluid 08/27/16 18:45 Body Fluid Culture - Final Complete Fluid Pleural Fluid NO GROWTH IN 72 HRS.--AEROBICALLY OR ... Imaging Last Impressions Lower Extremity Ultrasound 08/29/16 0000 Signed Impressions: Service Date/Time: Monday, August 29, 2016 09:34 - CONCLUSION: Normal examination. Jassi Serrano MD Chest X-Ray 08/28/16 0000 Signed Impressions: Service Date/Time: Sunday, August 28, 2016 19:15 - CONCLUSION: Moderate right pleural effusion with accompanying atelectasis or consolidation in the right mid and lower lung. There is underlying interstitial prominence which could be from edema or chronic interstitial disease. Davon Meraz MD CT Angiography 08/28/16 0000 Signed Impressions: Service Date/Time: Sunday, August 28, 2016 21:00 - CONCLUSION: 1. No pulmonary embolus. 2. Cavitary mass or destructive change of the right upper lung. 3. Increase of distention the right paratracheal region and right hilar region concerning for possible right central mass. 4. Collapse of portions of the right upper lobe, right middle lobe and right lower lobe. 5. Mild right pleural effusion. 6. Patchy areas of density seen in the left lung as described above likely related to mild atelectasis or consolidation. There is a minimal left effusion. Davon Meraz MD Chest Ultrasound 08/27/16 0000 Signed Impressions: Service Date/Time: Saturday, August 27, 2016 09:30 - CONCLUSION: Moderate right pleural effusion, marked for bedside thoracentesis Davon Spain MD Objective Remarks GENERAL: female resting comfortably in bed on O2 at 2 L nasal cannula currently on a Precedex infusion with a RASS score of 0 SKIN: Warm and dry. HEAD: Atraumatic. Normocephalic. EYES: Pupils equal and round. No scleral icterus. No injection or drainage. ENT: No nasal bleeding or discharge. NECK: Trachea midline. No JVD. CARDIOVASCULAR: Tachycardic, regular, sinus tachycardia on the monitor RESPIRATORY: unlabored. equal chest rise. GASTROINTESTINAL: Abdomen soft, non-tender, nondistended. Bowel sounds present. MUSCULOSKELETAL: Extremities without clubbing, cyanosis. 1 + edema BLE, slightly worse on right. NEUROLOGICAL: Awake and alert. Motor grossly within normal limits, moving all extremities spontaneously without focal deficit. Normal speech. A/P Assessment and Plan NEURO: History of alcohol abuse Anxiety Insomnia Reportedly quit drinking 2 months ago start zyprexa 5mg po q8h wean off precedex. Morphine as needed for pain Trazodone 200 mg by mouth daily at bedtime On thiamine 100 mg by mouth daily RESP: Acute hypercapnic respiratory failure- resolved. Stage IV Lung cancer/laryngeal cancer Right pleural effusion COPD History of tobacco abuse Thoracentesis 08/27 with 850 removal. CTA obtained - negative for PE. There is a large cavitary mass with destruction of RUL. Collapse of RUL, RML and RLL, consolidation RLL . Mild residual L pleural effusion. Symbicort 2 puffs inhaled every 12 hours DuoNeb every 4 hours. Albuterol every 2 hours as needed Solu-Medrol 40 g IV every 6hr Antibiotics for postobstructive pneumonia as per below clinically improving, though given lung cancer, likely will decompensate again at some point. CV: Sinus tachycardia Coronary artery disease Chronic systolic heart failure history of hypertension Metoprolol 12.5 mill grams by mouth every 12 hours Losartan 25 mill grams by mouth daily Lasix 20 mg by mouth daily 2-D echo 08/27/16ejection fraction 40-45%. Normal wall thickness. Mild MR. Mild to moderate TR. Pulmonary artery pressure 41 mmHg Troponins mildly elevated, peaked at 0.8. Cardiology evaluated, Dr. Rodríguez. No further cardiac workup planned, cardiology has signed off. GI: History of duodenal ulcer Nothing by mouth while on BiPAP. Then heart healthy diet as tolerated Sucralfate 1 g by mouth 4 times a day, famotidine 20 mill grams by mouth twice a day FEN/RENAL: Hyponatremia, resolved Voiding on own. ID: Leukocytosis Postobstructive pneumonia Pleural fluid culture from 08/27 no growth to date. Fungal smear negative. Fungal culture and AF stain pending. Influenza screen negative on 08/27 Sputum culture ordered but patient unable to produce specimen. On aztreonam and azithromycin. Add Flagyl for anaerobic coverage given postobstructive process HEME: Stage IV cancer lung/larynx Chronic anemia S/p chemo and radiation Monitor CBC Oncologist is Dr. Arias at [facility] CTA negative for PE on 08/28. 08/29 bilateral lower extremity ultrasound to evaluate for DVT-negative for DVT ENDO: Mild hyperglycemia may be secondary to steroids. Insulin low-dose sliding scale ac/hs PROPH: SCDs and Heparin 5000 units subcutaneous every 12 hours for DVT prophylaxis. Famotidine for stress ulcer prophylaxis/h/o duodenal ulcer. ACCESS: PIV providing adequate access at this time Patient is critically ill with acute hypercapneic respiratory with high risk for further deterioration. 08/28: Patient and her daughter Prashanth were updated. Prashanth's number is . Pts prognosis is poor. Pt desires FULL CODE. Discussed this may result in prolonged suffering given her severe pain and terminal condition,however will honor her wishes and intubate if necessary. palliative on board. patient continues to insist on full code despite her poor prognosis. Hugo Toribio MD Aug 30, 2016 15:23
[2016-08-30] MEDS: OLANZapine 5 MG TAB PO SCH ×2 (16:00→23:59)
[2016-08-30] MEDS: ALPRAZolam 0.5 MG TAB PO PRN (20:06)
[2016-08-30] MEDS: traZODone HCL 100 MG TAB PO SCH (20:06)
[2016-08-30 21:00] LABS: HEMATOCRIT 30.6 % (35.0-46.0); MEAN CELL VOLUME 91.9 FL (80.0-100.0); MEAN CORPUSCULAR HGB CONC 32.6 % (32.0-36.0); PLATELET COUNT 496 TH/MM3 (150-450); RED BLOOD COUNT 3.33 MIL/MM3 (4.00-5.30); RED CELL DISTRIBUTION WIDTH 16.9 % (11.6-17.2); REVIEW FLAG FINAL; WHITE BLOOD COUNT 11.4 TH/MM3 (4.0-11.0)
[2016-08-30 21:32] LABS: BICARBONATE 29.4 MEQ/L (21.0-32.0); MAGNESIUM 1.7 MG/DL (1.5-2.5)
[2016-08-30 21:42] LABS: POTASSIUM 3.4 MEQ/L (3.5-5.1)
[2016-08-31] VITALS (15 sets, daily range): BP systolic 97–137; BP diastolic 56–93; PULSE 101–135; RESP 15–38; TEMP 97.4–98; O2SAT 74–99
[2016-08-31] MEDS: metroNIDAZOLE 500 MG INJ 100 ML IV SCH ×2 (01:09→09:32)
[2016-08-31] MEDS: AZITHROMYCIN INJ 500 MG in SODIUM CHLOR 0.9% 250 ML INJ 250 ML IV SCH (02:09)
[2016-08-31] MEDS: HYDROmorphone HCL 2 MG TAB PO PRN ×6 (02:09→21:43)
[2016-08-31] MEDS: CHLORHEXIDINE GLUCONATE 2 % 1 PACK (2 CLOTHS)(taper/protocol) TOPICAL SCH ×2 (03:27→23:58)
[2016-08-31] MEDS: MORPHINE SULFATE 4 MG/ML INJ IV PUSH PRN ×5 (03:55→22:49)
[2016-08-31] MEDS: RESP: ALBUTEROL 2.5 MG/IPRATROPIUM 0.5 MG NEB (SCH) NEB ×5 (04:00→20:00)
[2016-08-31] MEDS: AZTREONAM INJ 2,000 MG in SODIUM CHLORIDE 0.9% INJ 100 ML IV SCH ×3 (04:47→21:45)
[2016-08-31] MEDS: ALPRAZolam 0.5 MG TAB PO PRN ×3 (06:05→23:58)
[2016-08-31] MEDS: INSULIN ASPART SUPPLEMENTAL SCALE SQ SCH ×2 (06:05→11:00)
[2016-08-31] MEDS: methylPREDNISolone SOD SUCC 40 MG/1 ML VIAL IV PUSH SCH (06:05)
[2016-08-31] MEDS: METOPROLOL TARTRATE 25 MG TAB PO SCH ×2 (07:36→21:04)
[2016-08-31] MEDS: OLANZapine 5 MG TAB PO SCH ×3 (07:36→23:58)
[2016-08-31] MEDS: SUCRALFATE 1 GM TAB PO SCH ×4 (07:37→22:48)
[2016-08-31] MEDS: PANTOPRAZOLE SOD 40 MG DELAYED RELEASE TAB PO SCH (07:37)
[2016-08-31] MEDS: HEPARIN SODIUM - SQ 10,000 UNITS/ML VIAL SQ SCH ×2 (07:37→21:00)
[2016-08-31] MEDS: THIAMINE HCL 100 MG TAB PO SCH (07:37)
[2016-08-31] MEDS: FUROSEMIDE 20 MG TAB PO SCH (07:37)
[2016-08-31] MEDS: FAMOTIDINE 20 MG TAB PO SCH ×2 (07:38→21:01)
[2016-08-31] MEDS: SODIUM CHLORIDE 0.9% FLUSH 10 ML FLUSH IV FLUSH SCH ×2 (07:39→21:06)
[2016-08-31] MEDS: BUDESONIDE-FORMOTEROL 160/4.5 MCG INHALER INH SCH ×2 (07:39→21:44)
--- NOTE | 2016-08-31 08:54 | PD.ONC.PN ---
Subjective Subjective Remarks SOB improved, want to go home. Right chest pain is chronic Objective Data Date Time Temp Pulse Resp B/P Pulse Ox O2 Delivery O2 Flow Rate FiO2 08/31/16 08:09 96 Nasal Cannula 3.00 08/31/16 06:00 118 08/31/16 04:00 115 08/31/16 04:00 98.0 135 33 123/78 90 08/31/16 02:00 110 08/31/16 00:00 116 08/31/16 00:00 97.9 117 21 97/56 97 08/30/16 22:00 117 08/30/16 20:00 109 08/30/16 20:00 97.8 109 28 78/95 89 08/30/16 18:00 114 08/30/16 16:00 97.8 108 24 100/63 98 08/30/16 16:00 108 08/30/16 12:20 18 08/30/16 10:00 114 08/31/16 08/31/16 08/31/16 07:00 15:00 23:00 Intake Total 1410 ml Output Total 1405 ml Balance 5 ml Result Diagram: 08/30/16199908/30/161999 Laboratory Results Laboratory Tests Test 08/30/16 20:00 White Blood Count 11.4 TH/MM3 Red Blood Count 3.33 MIL/MM3 Hemoglobin 10.0 GM/DL Hematocrit 30.6 % Mean Corpuscular Volume 91.9 FL Mean Corpuscular Hemoglobin 30.0 PG Mean Corpuscular Hemoglobin 32.6 % Concent Red Cell Distribution Width 16.9 % Platelet Count 496 TH/MM3 Mean Platelet Volume 7.0 FL Sodium Level 137 MEQ/L Potassium Level 3.4 MEQ/L Chloride Level 99 MEQ/L Carbon Dioxide Level 29.4 MEQ/L Anion Gap 9 MEQ/L Blood Urea Nitrogen 7 MG/DL Creatinine 0.43 MG/DL Estimat Glomerular Filtration 152 ML/MIN Rate Random Glucose 121 MG/DL Calcium Level 8.3 MG/DL Phosphorus Level 2.3 MG/DL Magnesium Level 1.7 MG/DL Administered Medications Medications (Trade) Dose Ordered Sig/Luiz Route PRN Reason Start Time Stop Time Status Last Admin Dose Admin Sodium Chloride (NS Flush) 2 ml BID IV FLUSH 08/27/16 09:00 08/31/16 07:39 Acetaminophen (Tylenol) 650 mg Q4H PRN PO TEMP > 100.4 08/27/16 03:00 08/27/16 11:57 Heparin Sodium (Porcine) 5000 units 5,000 units Q12HR SQ 08/27/16 09:00 08/31/16 07:37 Azithromycin 500 mg/Sodium Chloride 250 ml @ 250 mls/hr Q24H IV 08/28/16 02:00 08/31/16 02:09 Aztreonam/Sodium Chloride (Azactam Inj/NS Inj) 100 ml @ 200 mls/hr Q8H IV 08/27/16 13:00 08/31/16 04:47 Metoprolol Tartrate (Lopressor) 12.5 mg Q12HR PO 08/27/16 21:00 08/31/16 07:36 Alprazolam (Xanax) 0.5 mg TID PRN PO ANXIETY 08/27/16 12:15 08/31/16 06:05 Famotidine (Pepcid) 20 mg BID PO 08/27/16 12:15 08/31/16 07:38 Furosemide (Lasix) 20 mg DAILY PO 08/27/16 12:15 08/31/16 07:37 Losartan Potassium (Cozaar) 25 mg DAILY PO 08/28/16 09:00 08/30/16 07:43 Pantoprazole Sodium (Protonix) 40 mg DAILY PO 08/27/16 12:15 08/31/16 07:37 Sucralfate (Carafate) 1 gm QID PO 08/27/16 13:00 08/31/16 07:37 Thiamine HCl (Vitamin B1) 100 mg DAILY PO 08/28/16 09:00 08/31/16 07:37 Trazodone HCl (Desyrel) 200 mg HS PO 08/27/16 21:00 08/30/16 20:06 Morphine Sulfate (Morphine Inj) 4 mg Q3H PRN IV PUSH PAIN SCALE 5 TO 10 08/27/16 16:00 08/31/16 07:37 Chlorhexidine Gluconate (Chlorhexidine 2% Cloth) 3 pack DAILY@04 TOPICAL 08/28/16 04:00 09/01/16 04:01 08/31/16 03:27 Budesonide/ Formoterol Fumarate (Symbicort 160-4.5 Inh) 2 puff Q12HR INH 08/28/16 10:15 08/31/16 07:39 Hydromorphone HCl 2 mg 2 mg Q4H PRN PO PAIN SCALE 1-10 08/28/16 11:45 08/31/16 06:05 Metronidazole (Flagyl 500 Mg Inj) 100 ml @ 100 mls/hr Q8H IV 08/29/16 02:00 08/31/16 01:09 Potassium Bicarb/ Potassium Chloride (K-Lyte Cl Eff) 50 meq UNSCH PRN PO For Potassium 3.3 - 3.5 mEq/L 08/29/16 07:15 08/30/16 22:19 Methylprednisolone Sodium Succinate (SoluMEDROL INJ) 40 mg Q8HR IV PUSH 08/30/16 14:00 08/31/16 06:05 Olanzapine (ZyPREXA) 5 mg Q8H PO 08/30/16 16:00 08/31/16 07:36 Objective Remarks GENERAL: Well-nourished, well-developed patient. On O2. SKIN: Warm and dry. HEAD: Normocephalic. EYES: No scleral icterus. No injection or drainage. NECK: Supple, trachea midline. No JVD or lymphadenopathy. LYMPHATIC: No adenopathy. CARDIOVASCULAR: Regular rate and rhythm without murmurs. RESPIRATORY: Breath sounds decreased right lung. GASTROINTESTINAL: Abdomen soft, non-tender, nondistended. EXTREMITIES: No cyanosis, or edema. MUSCULOSKELETAL: Adequate muscle tone. NEUROLOGICAL: No obvious focal deficit. Awake, alert, and oriented x3. PSYCHIATRIC: Appropriate mood and affect; insight and judgment normal. Assessment/Plan Problem List: (1) Carcinoma Status: Acute Plan: --Concurrent lung cancer and head and neck cancer. --Dr. Arias patient-->will follow with him upon discharge --recently started daily radiation with concurrent chemotherapy every two weeks. --last treatment was three weeks ago-->has been in the hospital for pneumonia since then. --CT thorax--> ++ large cavitary mass in the right upper lobe. also a suspicious density in the right paratracheal and right hilar area which could be adenopathy. +collapse of partial right upper lobe, right middle lobe and right lower lobe. +right pleural effusion and had 900 cc of pleural fluid removed two days ago which was serosanguineous. Cytology is pending. (2) Pneumonia Status: Acute Plan: --on antibiotic (3) Anemia of chronic disease Status: Acute Plan: --hgb stable Assessment 55y/o female admitted with respiratory insufficiency. Oncology consulted for lung cancer and neck cancer. h/o Lung cancer. Head and neck cancer. Coronary artery disease. Anxiety. Hypertension. Chronic obstructive pulmonary disease. Plan 1. no further oncology w/u planned while inpatient 2. has follow up with Dr. Arias 09/02 3. monitor CBC 4. await cytology 5. can be d/c from oncology standpoint when clear by pulmonology. Isidro Elias MD Aug 31, 2016 08:54
--- NOTE | 2016-08-31 10:51 | HHI.PR ---
Subjective Subjective Remarks cough, non productive feels 'Ok' chronic pain no fever no cp eating okay wants to go home HR 110s BP 120s Review of Systems Constitutional Constitutional Remarks 12 point ros completed, negative except as noted above, unreliable Vitals/Results Intake & Output 08/30/16 08/30/16 08/31/16 15:00 23:00 07:00 Intake Total 739 ml 1410 ml Output Total 1405 ml Balance 739 ml 5 ml Intake Oral 240 ml 480 ml IV Total 499 ml 930 ml Output Urine Total 1405 ml # Voids 2 # Bowel Movements 0 1 Vital Signs Vital Signs Date Time Temp Pulse Resp B/P Pulse Ox O2 Delivery O2 Flow Rate FiO2 08/31/16 08:09 96 Nasal Cannula 3.00 08/31/16 06:00 118 08/31/16 04:00 115 08/31/16 04:00 98.0 135 33 123/78 90 08/31/16 02:00 110 08/31/16 00:00 116 08/31/16 00:00 97.9 117 21 97/56 97 08/30/16 22:00 117 08/30/16 20:00 109 08/30/16 20:00 97.8 109 28 78/95 89 08/30/16 18:00 114 08/30/16 16:00 97.8 108 24 100/63 98 08/30/16 16:00 108 08/30/16 12:20 18 CBC/BMP: 08/30/16199908/30/161999 Lab Results Laboratory Tests Test 08/30/16 20:00 White Blood Count 11.4 TH/MM3 Red Blood Count 3.33 MIL/MM3 Hemoglobin 10.0 GM/DL Hematocrit 30.6 % Mean Corpuscular Volume 91.9 FL Mean Corpuscular Hemoglobin 30.0 PG Mean Corpuscular Hemoglobin 32.6 % Concent Red Cell Distribution Width 16.9 % Platelet Count 496 TH/MM3 Mean Platelet Volume 7.0 FL Sodium Level 137 MEQ/L Potassium Level 3.4 MEQ/L Chloride Level 99 MEQ/L Carbon Dioxide Level 29.4 MEQ/L Anion Gap 9 MEQ/L Blood Urea Nitrogen 7 MG/DL Creatinine 0.43 MG/DL Estimat Glomerular Filtration 152 ML/MIN Rate Random Glucose 121 MG/DL Calcium Level 8.3 MG/DL Phosphorus Level 2.3 MG/DL Magnesium Level 1.7 MG/DL Physical Exam General General Appearance: Well Developed, Comfortable, Anxious Eyes Eye Exam: Pupils Equal, Pupils Reactive Ears & Nose Ears & Nose Exam: Nasal Mucosa [place] Throat Throat Exam: Oral Mucosa [place] & Moist Neck Neck Exam: Trachea Midline Pulmonary Resp Exam: Rhonchi Cardiology CV Exam: Irregular, Tachycardia Gastrointestinal/Abdomen GI Exam: Soft, Non-Tender, Bowel Sounds Present, Non-Distended Musculoskeletal MS Exam: Normal Tone Integumentary Skin Exam: Warm, Dry Extremeties Extremities Exam: Pedal Pulses Palpable, Moderate Edema Neurologic Neuro Exam: Alert, Awake, Oriented, Speech Clear, Moving All Extremities, Maintenance And Operations Supervisor Equal, No Focal Deficits Psychiatric Psych Exam: Appropriate Responses VTE Prophylaxis VTE Prophylaxis Meds: Heparin PUD Prophylasis PUD Prophylaxis: Carafate Assessment/Plan Assessment/Plan Assessment Lung and neck cancer, on radiation and chemo Large right upper lobe cavity Right paratracheal and hilar lymphadenopathy Severe anxiety Possible right sided Pneumonia non compliant Hypoxemia COPD Tobacco abuse Malnourished Management appreciate CCM input, signed off continue abx, oxygen, duonebs, IV steroids Appreciate pulm input Appreciate cardiology input, no ACS Continue with beta blockers Echo done, EF 40-45%. Patient unable to tolerate Isai inhibitors due to marginal blood pressure. Lung ca f/u Dr. Arias, has appointment 09/02 Dr. Elias evaluated here, ok to dc if ok with pulmonary Pain control as blood pressure would allow it continue lidocaine patch for back pain DVT and GI prophylaxis Continue home meds waiting to transfer out of ICU DC planning, poss home tomorrow set up hhc D/W RN D/W Dr. Ojeda D/W pt This patient was seen by myself and Dr. Ojeda, this note is written on his behalf Deandra Bello Aug 31, 2016 10:51
--- NOTE | 2016-08-31 10:52 | HHI.FF ---
Face to Face Verification Diagnosis: (1) severe COPD (2) stage IV lung cancer, status post recent chemotherapy and radiation Physical Therapy Order: Evaluate and Treat Home Health Nursing Order: Medical education Signs/symptoms of disease process Oxygen administration education Nursing assessment with vital signs I have seen patient Traci Boswell on 08/31/16. My clinical findings support the need for the requested home health care services because: Patient has SOB Deconditioned w/ increased weakness Need for psychosocial assistance I certify that my clinical findings support that this patient is homebound because: Hx COPD- exertion dyspnea/weakness Deandra Bello [facility] Aug 31, 2016 10:52
[2016-08-31] MEDS: LOSARTAN 25 MG TAB PO SCH (12:04)
--- NOTE | 2016-08-31 12:26 | HHI.HCPN ---
Reason for visit a. To assist with evaluation and management of symptoms including: Dyspnea, pain b. To assist medical decision maker(s) with: better understanding of current medical conditions; weighing benefits/burdens of medical treatment options; making medical treatment decisions. . Subjective/Interval History INTERVAL NOTE: The patient wants to go home, and she says that over and over. She denies pain or dyspnea at this time. She promises me that she will discuss her terminality and her wishes and goals with her sons when she gets home. I stressed again how important it is that they know what she wants prior to her declining. She understands clearly that she will decline at some time in the upcoming months, and she tells me that she likely will not want to be resuscitated then. . Family/friend interactions She has requested that I do not call her family . Advance Directives Living Will: Never completed Durable Power of Dance Artist: Never completed Advance Directive Specifics Health Care Surrogate(s): She declined to sign the healthcare surrogacy form. . Objective Vital Signs Date Time Temp Pulse Resp B/P Pulse Ox O2 Delivery O2 Flow Rate FiO2 08/31/16 08:09 96 Nasal Cannula 3.00 08/31/16 06:00 118 08/31/16 04:00 115 08/31/16 04:00 98.0 135 33 123/78 90 08/31/16 02:00 110 08/31/16 00:00 116 08/31/16 00:00 97.9 117 21 97/56 97 08/30/16 22:00 117 08/30/16 20:00 109 08/30/16 20:00 97.8 109 28 78/95 89 08/30/16 18:00 114 08/30/16 16:00 97.8 108 24 100/63 98 08/30/16 16:00 108 Intake & Output 08/31/16 08/31/16 07:00 19:00 Intake Total 2149 ml Output Total 1405 ml Balance 744 ml Intake Oral 720 ml IV Total 1429 ml Output Urine Total 1405 ml # Voids 2 # Bowel Movements 1 Physical Exam CONSTITUTIONAL/GENERAL: This is an adequately nourished patient, in no apparent distress. NECK: Trachea midline. Supple, nontender. No palpable thyroid enlargement or nodularity. CARDIOVASCULAR: Regular rate and rhythm without murmurs, gallops, or rubs. No JVD. Peripheral pulses symmetric. RESPIRATORY/CHEST: Symmetric, unlabored respirations. Clear to auscultation. Breath sounds equal bilaterally. No wheezes, rales, or rhonchi. GASTROINTESTINAL: Abdomen soft, non-tender, nondistended. No hepato-splenomegaly , or palpable masses. No guarding. Bowel sounds present. MUSCULOSKELETAL: Extremities without clubbing, cyanosis, or edema. No joint tenderness or effusion noted. No calf tenderness. No mottling or clubbing. NEUROLOGICAL: Awake and alert. Motor and sensory grossly within normal limits. Follows commands. Cognitively sharp. Moves all extremities. PSYCHIATRIC: No obvious anxiety/depression. no apparent hallucinations or other psychotic thought process. Diagnostic Tests Laboratory Laboratory Tests Test 08/28/16 08/29/16 08/30/16 20:30 08: 20:00 Blood Gas Puncture Site LT RADIAL Blood Gas Patient Temperature 98.6 Blood Gas HCO3 30 mmol/L (22-26) Blood Gas Base Excess 4.8 mmol/L (-2-2) Blood Gas Oxygen Saturation 94 % (90-100) Arterial Blood pH 7.35 (7.380-7.420) Arterial Blood Partial 55 mmHg (38-42) Pressure CO2 Arterial Blood Partial 88 mmHg Pressure O2 (61-120) Arterial Blood Oxygen Content 11.9 Vol % (12.0-20.0) Arterial Blood 1.8 % (0-4) Carboxyhemoglobin Arterial Blood Methemoglobin 0.8 % (0-2) Blood Gas Hemoglobin 8.9 G/DL (12.0-16.0) Oxygen Delivery Device BIPAP Blood Gas Ventilator Setting 15 IPAP/5 EPAP Blood Gas Inspired Oxygen 45 % White Blood Count 9.6 TH/MM3 11.4 TH/MM3 (4.0-11.0) (4.0-11.0) Red Blood Count 3.00 MIL/MM3 3.33 MIL/MM3 (4.00-5.30) (4.00-5.30) Hemoglobin 9.2 GM/DL 10.0 GM/DL (11.6-15.3) (11.6-15.3) Hematocrit 26.6 % 30.6 % (35.0-46.0) (35.0-46.0) Mean Corpuscular Volume 88.8 FL 91.9 FL (80.0-100.0) (80.0-100.0) Mean Corpuscular Hemoglobin 30.7 PG 30.0 PG (27.0-34.0) (27.0-34.0) Mean Corpuscular Hemoglobin 34.5 % 32.6 % Concent (32.0-36.0) (32.0-36.0) Red Cell Distribution Width 16.1 % 16.9 % (11.6-17.2) (11.6-17.2) Platelet Count 312 TH/MM3 496 TH/MM3 (150-450) (150-450) Mean Platelet Volume 7.0 FL 7.0 FL (7.0-11.0) (7.0-11.0) Hematology Comments Sodium Level 135 MEQ/L 137 MEQ/L (136-145) (136-145) Potassium Level 4.1 MEQ/L 3.4 MEQ/L (3.5-5.1) (3.5-5.1) Chloride Level 101 MEQ/L 99 MEQ/L (98-107) (98-107) Carbon Dioxide Level 27.2 MEQ/L 29.4 MEQ/L (21.0-32.0) (21.0-32.0) Anion Gap 7 MEQ/L (5-15) 9 MEQ/L (5-15) Blood Urea Nitrogen 9 MG/DL (7-18) 7 MG/DL (7-18) Creatinine 0.45 MG/DL 0.43 MG/DL (0.50-1.00) (0.50-1.00) Estimat Glomerular Filtration 144 ML/MIN 152 ML/MIN Rate (>89) (>89) Random Glucose 121 MG/DL 121 MG/DL (74-106) (74-106) Calcium Level 8.0 MG/DL 8.3 MG/DL (8.5-10.1) (8.5-10.1) Phosphorus Level 2.3 MG/DL (2.5-4.9) Magnesium Level 1.7 MG/DL (1.5-2.5) Result Diagram: 08/30/16199908/30/161999 Assessment and Plan Disease Oriented Problem List: (1) hypercapnic respiratory failure (2) severe COPD (3) stage IV lung cancer, status post recent chemotherapy and radiation (4) reportedly also has an independent head/neck cancer (5) pneumonia treated at [facility] last week (6) CAD, recent [place], current troponin elevations (7) kidney stones (8) history of ulcer disease (9) chronic back pain for years (10) anxiety (11) history of alcoholism, reportedly sober for a couple months (12) malnutrition, albumin 1.8 (13) anxiety, chronic, on TID Xanax for years (14) hypertension Symptom Scale: (1) dyspnea 0-10 Scale: 3 (recently on BiPAP, has severe COPD) (2) anxiety 0-10 Scale: 4 (on chronic Xanax) (3) pain 0-10 Scale: 5 (has been on chronic hydromorphone) Pertinent Non-Medical Issues Psychosocial: Spiritual: The patient has a [employer] background, and reports that she is [facility] [place]; she reports that her manager economic is aware of her current illness and she receives support from him. Legal: The patient has capacity for decision-making. She is completing her HCS form today naming her son Travis Boswell as her HCS. Ethical issues impacting care: Important Contacts Son: Travis Boswell [phone] . Prognosis This patient is terminal. In addition to stage IV lung cancer, she has end- stage COPD. She is declining, coming cachectic, and is malnourished with an albumin of 1.8. She would be appropriate for hospice if her goals became comfort oriented. . Code Status: Full Code Plan * FULL CODE, confirmed by patient 08/30/16 * DECISION-MAKING: The patient has capacity for decision-making. She is now refusing to complete her HCS form today naming her son Travis Boswell as her HCS. * GOALS: The patient now tells me that she will discuss her diagnosis, prognosis , limited life span, and her goals and wishes with her 2 adult sons when she returns home. She understands the importance of them knowing an understanding what she wants as she declines in the upcoming weeks and months. * SYMPTOMS: The patient has had chronic back pain for years, and has been on oral Dilaudid for that; I would recommend her continuing with that same regimen when she gets out of the hospital. She also has chronic anxiety and has been on Xanax at least 3 times per day for a few years, and that should be continued also. I have no other medication recommendations. * Palliative Care will continue to follow the patient during this hospitalization. . Time Spent Total Floor Time (mins): 26 Face to Face Time (mins): 15 >50% Counseling/Coord of Care: Yes Attestation To help prompt me to consider important information that might be impacting today's encounter and assessment, information from prior notes written by myself or my colleagues may have been "brought forward" into today's note. My signature on this note, however, is an attestation that I personally performed the exam, history, and/or decision-making noted today, and, unless otherwise indicated, the interactions with patient, family, and staff as well as the review of records all occurred today. I also attest that the listed assessment and stated plan reflect my best clinical judgment today based on the combination of historical information, prior notes, and today's exam/ interactions. When time spent is documented, it refers only to time spent today by the signer, or if indicated, combined time spent today by collaborating physician/nurse practitioner. Summer Melgar MD Aug 31, 2016 12:26
--- NOTE | 2016-08-31 12:49 | HHI.PR ---
Subjective Remarks Has less SOB and cough . Wants to go home. C/O pain. Off precedex,and on Dilaudid Objective Vital Signs Date Time Temp Pulse Resp B/P Pulse Ox O2 Delivery O2 Flow Rate FiO2 08/31/16 08:09 96 Nasal Cannula 3.00 08/31/16 06:00 118 08/31/16 04:00 115 08/31/16 04:00 98.0 135 33 123/78 90 08/31/16 02:00 110 08/31/16 00:00 116 08/31/16 00:00 97.9 117 21 97/56 97 08/30/16 22:00 117 08/30/16 20:00 109 08/30/16 20:00 97.8 109 28 78/95 89 08/30/16 18:00 114 08/30/16 16:00 97.8 108 24 100/63 98 08/30/16 16:00 108 I/O 08/30/16 08/30/16 08/30/16 08/31/16 08/31/16 08/31/16 07:00 15:00 23:00 07:00 15:00 23:00 Intake Total 721 ml 739 ml 1410 ml Output Total 1405 ml Balance 721 ml 739 ml 5 ml Intake Oral 240 ml 240 ml 480 ml IV Total 481 ml 499 ml 930 ml Output Urine Total 1405 ml # Voids 4 2 # Bowel Movements 1 0 1 Result Diagram: 08/30/16199908/30/161999 Objective Remarks GENERAL: This is a well-developed patient, in no acute distress. CARDIOVASCULAR: Regular rate and rhythm without murmurs, gallops, or rubs. RESPIRATORY: Diffuse expiratory wheezes, diminish breath sounds Right chest with occ Crackles GASTROINTESTINAL: Abdomen soft, non-tender,nondistended. Normal active bowel sounds MUSCULOSKELETAL: Extremities without clubbing, cyanosis, or edema. NEURO: Alert & Oriented x4 to person, place, time, situation. Moves all ext x4 Assessment and Plan Assessment and Plan 1. Concurrent lung cancer and head and neck cancer. 2. Chronic obstructive pulmonary disease. She is currently on steroids. 3. Possible right-sided pneumonia. Pleural effusion resolved 4. Chronic pain on opioids. 5. Anemia due to chronic disease. Hemoglobin is stable. No apparent bleeding. Plan : 1. Wean O2 to RA, and use O2 at HS at 2 l. 2. Nebs qid , duoneb 3. Continue antibiotics and switch to PO 4. BMP,CBC in am 5. Chemotherapy when discharged 6. D/C Solumedrol 7. Add prednisone 10 mg bid Olinda Novak MD Aug 31, 2016 12:48
[2016-08-31] MEDS: metroNIDAZOLE 500 MG TAB PO SCH ×2 (13:35→21:01)
[2016-08-31] MEDS: traZODone HCL 100 MG TAB PO SCH (21:03)
[2016-08-31] MEDS: predniSONE 10 MG TAB PO SCH (21:04)
[2016-09-01] VITALS (12 sets, daily range): BP systolic 79–130; BP diastolic 52–80; PULSE 99–115; RESP 14–18; TEMP 96.9–98.4; O2SAT 92–100
[2016-09-01] MEDS: RESP: ALBUTEROL 2.5 MG/IPRATROPIUM 0.5 MG NEB (SCH) NEB ×6 (02:59→19:28)
[2016-09-01] MEDS: HYDROmorphone HCL 2 MG TAB PO PRN ×3 (05:12→13:15)
[2016-09-01] MEDS: metroNIDAZOLE 500 MG TAB PO SCH ×3 (05:13→20:39)
[2016-09-01] MEDS: AZTREONAM INJ 2,000 MG in SODIUM CHLORIDE 0.9% INJ 100 ML IV SCH ×2 (05:15→13:00)
[2016-09-01] MEDS: MORPHINE SULFATE 4 MG/ML INJ IV PUSH PRN (06:48)
[2016-09-01] MEDS: OLANZapine 5 MG TAB PO SCH ×3 (08:00→23:22)
--- NOTE | 2016-09-01 08:26 | PD.ONC.PN ---
Subjective Subjective Remarks SOB improving. Chronic right chest wall pain stable. Objective Data Date Time Temp Pulse Resp B/P Pulse Ox O2 Delivery O2 Flow Rate FiO2 09/01/16 08:00 98.2 107 18 104/71 100 09/01/16 07:58 98 Nasal Cannula 4.00 09/01/16 04:00 97.6 112 18 114/70 100 09/01/16 00:00 97.2 114 16 107/69 100 08/31/16 21:43 98 Nasal Cannula 4.00 08/31/16 20:00 97.4 117 20 117/74 99 08/31/16 17:45 97.6 131 20 137/93 96 08/31/16 16:01 99 Nasal Cannula 2.00 08/31/16 12:04 112 08/31/16 12:04 112 38 113/69 96 08/31/16 12:00 111 08/31/16 12:00 111 29 87 08/31/16 11:00 111 08/31/16 11:00 111 24 97/62 99 08/31/16 10:00 110 08/31/16 10:00 110 27 102/61 98 08/31/16 09:25 110 08/31/16 09:25 110 24 108/61 92 09/01/16 09/01/16 09/01/16 07:00 15:00 23:00 Intake Total 110 ml Balance 110 ml Result Diagram: 08/30/16199908/30/161999 Administered Medications Medications (Trade) Dose Ordered Sig/Luiz Route PRN Reason Start Time Stop Time Status Last Admin Dose Admin Sodium Chloride (NS Flush) 2 ml UNSCH PRN IV FLUSH FLUSH AFTER USING IV ACCESS 08/27/16 03:00 09/01/16 05:16 Sodium Chloride (NS Flush) 2 ml BID IV FLUSH 08/27/16 09:00 08/31/16 21:06 Acetaminophen (Tylenol) 650 mg Q4H PRN PO TEMP > 100.4 08/27/16 03:00 08/27/16 11:57 Heparin Sodium (Porcine) 5000 units 5,000 units Q12HR SQ 08/27/16 09:00 08/31/16 07:37 Aztreonam/Sodium Chloride (Azactam Inj/NS Inj) 100 ml @ 200 mls/hr Q8H IV 08/27/16 13:00 09/01/16 05:15 Metoprolol Tartrate (Lopressor) 12.5 mg Q12HR PO 08/27/16 21:00 08/31/16 21:04 Alprazolam (Xanax) 0.5 mg TID PRN PO ANXIETY 08/27/16 12:15 08/31/16 23:58 Famotidine (Pepcid) 20 mg BID PO 08/27/16 12:15 08/31/16 21:01 Furosemide (Lasix) 20 mg DAILY PO 08/27/16 12:15 08/31/16 07:37 Losartan Potassium (Cozaar) 25 mg DAILY PO 08/28/16 09:00 08/31/16 12:04 Pantoprazole Sodium (Protonix) 40 mg DAILY PO 08/27/16 12:15 08/31/16 07:37 Sucralfate (Carafate) 1 gm QID PO 08/27/16 13:00 08/31/16 22:48 Thiamine HCl (Vitamin B1) 100 mg DAILY PO 08/28/16 09:00 08/31/16 07:37 Trazodone HCl (Desyrel) 200 mg HS PO 08/27/16 21:00 08/31/16 21:03 Morphine Sulfate (Morphine Inj) 4 mg Q3H PRN IV PUSH BREAKTHROUGH PAIN 5-10 08/27/16 16:00 09/01/16 06:48 Budesonide/ Formoterol Fumarate (Symbicort 160-4.5 Inh) 2 puff Q12HR INH 08/28/16 10:15 08/31/16 21:44 Hydromorphone HCl (Dilaudid) 2 mg Q4H PRN PO PAIN SCALE 1-10 08/28/16 11:45 09/01/16 05:12 Potassium Bicarb/ Potassium Chloride (K-Lyte Cl Eff) 50 meq UNSCH PRN PO For Potassium 3.3 - 3.5 mEq/L 08/29/16 07:15 08/30/16 22:19 Olanzapine (ZyPREXA) 5 mg Q8H PO 08/30/16 16:00 08/31/16 23:58 Prednisone (Deltasone) 10 mg BID PO 08/31/16 21:00 08/31/16 21:04 Metronidazole (Flagyl) 500 mg Q8HR PO 08/31/16 14:00 09/01/16 05:13 Objective Remarks GENERAL: Well-nourished, well-developed patient. SKIN: Warm and dry. HEAD: Normocephalic. EYES: No scleral icterus. No injection or drainage. NECK: Supple, trachea midline. No JVD or lymphadenopathy. LYMPHATIC: No adenopathy. CARDIOVASCULAR: Regular rate and rhythm without murmurs. RESPIRATORY: Breath sounds decreased right base. GASTROINTESTINAL: Abdomen soft, non-tender, nondistended. EXTREMITIES: No cyanosis, or edema. MUSCULOSKELETAL: Adequate muscle tone. NEUROLOGICAL: No obvious focal deficit. Awake, alert, and oriented x3. PSYCHIATRIC: Appropriate mood and affect; insight and judgment normal. Assessment/Plan Problem List: (1) Carcinoma Status: Acute Plan: --Concurrent lung cancer and head and neck cancer. --Dr. Arias patient-->will follow with him upon discharge --recently started daily radiation with concurrent chemotherapy every two weeks. --last treatment was three weeks ago-->has been in the hospital for pneumonia since then. --CT thorax--> ++ large cavitary mass in the right upper lobe. also a suspicious density in the right paratracheal and right hilar area which could be adenopathy. +collapse of partial right upper lobe, right middle lobe and right lower lobe. +right pleural effusion and had 900 cc of pleural fluid removed two days ago which was serosanguineous. Cytology is pending. (2) Pneumonia Status: Acute Plan: --on antibiotic (3) Anemia of chronic disease Status: Acute Plan: --hgb stable Assessment 55y/o female admitted with respiratory insufficiency. Oncology consulted for lung cancer and neck cancer. h/o Lung cancer. Head and neck cancer. Coronary artery disease. Anxiety. Hypertension. Chronic obstructive pulmonary disease. Plan 1. no further oncology w/u planned while inpatient 2. has follow up with Dr. Arias 09/02 3. await cytology 4. can be d/c from oncology standpoint when clear by pulmonology. Isidro lEias MD Sep 01, 2016 08:26
[2016-09-01] MEDS: predniSONE 10 MG TAB PO SCH ×2 (08:34→20:39)
[2016-09-01] MEDS: METOPROLOL TARTRATE 25 MG TAB PO SCH ×2 (08:34→20:39)
[2016-09-01] MEDS: FAMOTIDINE 20 MG TAB PO SCH ×2 (08:34→21:00)
[2016-09-01] MEDS: PANTOPRAZOLE SOD 40 MG DELAYED RELEASE TAB PO SCH (08:34)
[2016-09-01] MEDS: THIAMINE HCL 100 MG TAB PO SCH (08:34)
[2016-09-01] MEDS: LOSARTAN 25 MG TAB PO SCH (08:35)
[2016-09-01] MEDS: ALPRAZolam 0.5 MG TAB PO PRN ×3 (08:35→23:21)
[2016-09-01] MEDS: FUROSEMIDE 20 MG TAB PO SCH (08:35)
[2016-09-01] MEDS: SUCRALFATE 1 GM TAB PO SCH ×4 (08:35→21:00)
[2016-09-01] MEDS: SODIUM CHLORIDE 0.9% FLUSH 10 ML FLUSH IV FLUSH SCH ×2 (08:38→20:40)
[2016-09-01] MEDS: HEPARIN SODIUM - SQ 10,000 UNITS/ML VIAL SQ SCH ×2 (08:39→21:00)
[2016-09-01] MEDS: BUDESONIDE-FORMOTEROL 160/4.5 MCG INHALER INH SCH ×2 (08:42→20:39)
[2016-09-01] MEDS ORDERED: PRED10 PO (12:32)
--- NOTE | 2016-09-01 12:33 | HHI.PR ---
Review of Systems Constitutional Constitutional Remarks Chest pain, back pain, difficulty breathing, since his symptoms reviewed and negative however not reliable Vitals/Results Intake & Output 08/31/16 08/31/16 09/01/16 15:00 23:00 07:00 Intake Total 1023 ml 260 ml 110 ml Output Total 1800 ml Balance -777 ml 260 ml 110 ml Intake Oral 760 ml 150 ml IV Total 263 ml 110 ml 110 ml Output Urine Total 1800 ml # Voids 1 1 # Bowel Movements 1 0 Vital Signs Vital Signs Date Time Temp Pulse Resp B/P Pulse Ox O2 Delivery O2 Flow Rate FiO2 09/01/16 12:00 98.0 105 14 79/52 92 09/01/16 11:01 91/54 09/01/16 08:00 98.2 107 18 104/71 100 09/01/16 07:58 98 Nasal Cannula 4.00 09/01/16 04:00 97.6 112 18 114/70 100 09/01/16 00:00 97.2 114 16 107/69 100 08/31/16 21:43 98 Nasal Cannula 4.00 08/31/16 20:00 97.4 117 20 117/74 99 08/31/16 17:45 97.6 131 20 137/93 96 08/31/16 16:01 99 Nasal Cannula 2.00 CBC/BMP: 08/30/16199908/30/161999 Physical Exam General General Appearance: Well Developed, Comfortable, Anxious Eyes Eye Exam: Pupils Equal, Pupils Reactive Ears & Nose Ears & Nose Exam: Nasal Mucosa Bantry Throat Throat Exam: Oral Mucosa Bantry & Moist Neck Neck Exam: Trachea Midline Pulmonary Resp Exam: Rhonchi Cardiology CV Exam: Irregular, Tachycardia Gastrointestinal/Abdomen GI Exam: Soft, Non-Tender, Bowel Sounds Present, Non-Distended Musculoskeletal MS Exam: Normal Tone Integumentary Skin Exam: Warm, Dry Extremeties Extremities Exam: Pedal Pulses Palpable, Moderate Edema Neurologic Neuro Exam: Alert, Awake, Oriented, Speech Clear, Moving All Extremities, Unloader Equal, No Focal Deficits Psychiatric Psych Exam: Appropriate Responses VTE Prophylaxis VTE Prophylaxis Meds: Heparin PUD Prophylasis PUD Prophylaxis: Carafate Assessment/Plan Assessment/Plan Assessment Lung and neck cancer Large right upper lobe cavity Right paratracheal and hilar lymphadenopathy Severe anxiety Possible right sided Pneumonia finished antibiotic course Hypoxemia Blood pressure relatively low however the patient has chronic low blood pressure that is asymptomatic Management Discharge discharge home today Steroids, taper over 2 weeks bronchodilators Discussed with Pulmonology Follow with oncologist Dr. Arias tomorrow Poor prognosis Discussed with patient Discussed with nurse 35 minutes Gerardo Ojeda MD Sep 01, 2016 12:33 DVT and GI prophylaxis Continue home meds waiting to transfer out of ICU DC planning, poss home tomorrow set up hhc D/W RN D/W Dr. Ojeda D/W pt This patient was seen by myself and Dr. Ojeda, this note is written on his behalf Gerardo Ojeda MD Sep 01, 2016 12:33
--- NOTE | 2016-09-01 12:38 | HHI.PR ---
Subjective Remarks Has more SOB and cough . Wants to stay. C/O pain. On o2 3l Objective Vital Signs Date Time Temp Pulse Resp B/P Pulse Ox O2 Delivery O2 Flow Rate FiO2 09/01/16 12:00 98.0 105 14 79/52 92 09/01/16 11:01 91/54 09/01/16 08:00 98.2 107 18 104/71 100 09/01/16 07:58 98 Nasal Cannula 4.00 09/01/16 04:00 97.6 112 18 114/70 100 09/01/16 00:00 97.2 114 16 107/69 100 08/31/16 21:43 98 Nasal Cannula 4.00 08/31/16 20:00 97.4 117 20 117/74 99 08/31/16 17:45 97.6 131 20 137/93 96 08/31/16 16:01 99 Nasal Cannula 2.00 I/O 08/31/16 08/31/16 08/31/16 09/01/16 09/01/16 09/01/16 07:00 15:00 23:00 07:00 15:00 23:00 Intake Total 1410 ml 1023 ml 260 ml 110 ml Output Total 1405 ml 1800 ml Balance 5 ml -777 ml 260 ml 110 ml Intake Oral 480 ml 760 ml 150 ml IV Total 930 ml 263 ml 110 ml 110 ml Output Urine Total 1405 ml 1800 ml # Voids 1 1 # Bowel Movements 1 1 0 Result Diagram: 08/30/16199908/30/161999 Objective Remarks GENERAL: This is a well-developed patient, in mild distress. CARDIOVASCULAR: Regular rate and rhythm without murmurs, gallops, or rubs. RESPIRATORY: Diffuse expiratory wheezes, diminish breath sounds Right chest with occ Crackles at bases GASTROINTESTINAL: Abdomen soft, non-tender,nondistended. Normal active bowel sounds MUSCULOSKELETAL: Extremities without clubbing, cyanosis,but has edema. NEURO: Alert & Oriented x4 to person, place, time, situation. Moves all ext x4 Assessment and Plan Assessment and Plan 1. Concurrent lung cancer and head and neck cancer. 2. Chronic obstructive pulmonary disease. She is currently on steroids. 3. Possible right-sided pneumonia. Pleural effusion resolved 4. Chronic pain on opioids. 5. Anemia due to chronic disease. Hemoglobin is stable. No apparent bleeding. Plan : 1. Wean O2 to 2L and use O2 at HS at 3 l. 2. Nebs qid , duoneb 3. Continue antibiotics PO 4. Pain control with Percocet 5. Chemotherapy when discharged 6. Home when stable 7. Add prednisone 10 mg bid Olinda Novak MD Sep 01, 2016 12:38
[2016-09-01 13:05] LABS: BODY FLUID LDH 65 U/L (()); BODY FLUID LDH SOURCE PLEURAL (())
[2016-09-01] MEDS ORDERED: ALBUMIN HUMAN 25% 12.5 GM/50 ML BAGP IV ONE (16:00)
[2016-09-01] MEDS: traZODone HCL 100 MG TAB PO SCH (20:39)
[2016-09-02] VITALS: BP 133/86; PULSE 105; RESP 18; TEMP 97.2; O2SAT 95
[2016-09-02] MEDS: HYDROmorphone HCL 2 MG TAB PO PRN ×4 (00:19→13:11)
[2016-09-02 04:00] VITALS: BP 125/80; PULSE 100; RESP 17; TEMP 97.7; O2SAT 95
[2016-09-02] MEDS: metroNIDAZOLE 500 MG TAB PO SCH ×2 (06:33→13:12)
[2016-09-02] MEDS: HEPARIN SODIUM - SQ 10,000 UNITS/ML VIAL SQ SCH (07:12)
[2016-09-02] MEDS: PANTOPRAZOLE SOD 40 MG DELAYED RELEASE TAB PO SCH (07:22)
[2016-09-02] MEDS: THIAMINE HCL 100 MG TAB PO SCH (07:22)
[2016-09-02] MEDS: LOSARTAN 25 MG TAB PO SCH (07:22)
[2016-09-02] MEDS: predniSONE 10 MG TAB PO SCH (07:23)
[2016-09-02] MEDS: FUROSEMIDE 20 MG TAB PO SCH (07:23)
[2016-09-02] MEDS: OLANZapine 5 MG TAB PO SCH (07:23)
[2016-09-02] MEDS: FAMOTIDINE 20 MG TAB PO SCH (07:23)
[2016-09-02] MEDS: METOPROLOL TARTRATE 25 MG TAB PO SCH (07:23)
[2016-09-02] MEDS: SUCRALFATE 1 GM TAB PO SCH ×2 (07:23→13:00)
[2016-09-02] MEDS: ALPRAZolam 0.5 MG TAB PO PRN (07:24)
[2016-09-02] MEDS: BUDESONIDE-FORMOTEROL 160/4.5 MCG INHALER INH SCH (07:24)
[2016-09-02] MEDS: SODIUM CHLORIDE 0.9% FLUSH 10 ML FLUSH IV FLUSH SCH (07:30)
[2016-09-02 08:00] VITALS: BP 127/74; PULSE 105; RESP 18; TEMP 97.7; O2SAT 100
[2016-09-02 09:00] VITALS: BP 106/59; PULSE 105
[2016-09-02 12:00] VITALS: BP 118/76; PULSE 96; RESP 20; TEMP 98; O2SAT 100
[2016-09-02 12:13] VITALS: O2SAT 93
--- NOTE | 2016-09-02 12:32 | HHI.PR ---
Subjective Remarks Has less SOB and cough . C/O Swallow problems. C/O pain. On o2 3l No change overall. Objective Vital Signs Date Time Temp Pulse Resp B/P Pulse Ox O2 Delivery O2 Flow Rate FiO2 09/02/16 12:13 93 Nasal Cannula 3.00 09/02/16 09:00 105 106/59 09/02/16 08:00 97.7 105 18 127/74 100 09/02/16 04:00 97.7 100 17 125/80 95 09/02/16 00:00 97.2 105 18 133/86 95 09/01/16 20:00 96.9 115 18 130/80 98 09/01/16 19:29 97 Nasal Cannula 3.00 09/01/16 16:31 97 Nasal Cannula 3.00 09/01/16 16:00 98.4 99 18 118/59 96 09/01/16 15:52 120/60 09/01/16 12:45 90/58 I/O 09/01/16 09/01/16 09/01/16 09/02/16 09/02/16 09/02/16 07:00 15:00 23:00 07:00 15:00 23:00 Intake Total 110 ml 960 ml 240 ml 600 ml Output Total 150 ml Balance 110 ml 960 ml 90 ml 600 ml Intake Oral 960 ml 240 ml 600 ml IV Total 110 ml Output Urine Total 150 ml # Voids 6 1 # Bowel Movements 1 Result Diagram: 08/30/16199908/30/161999 Objective Remarks GENERAL: This is a well-developed patient, in no distress. CARDIOVASCULAR: Regular rate and rhythm without murmurs, gallops, or rubs. RESPIRATORY: Diffuse expiratory wheezes, diminished breath sounds Right chest with occ Crackles at bases GASTROINTESTINAL: Abdomen soft, non-tender,nondistended. Normal active bowel sounds MUSCULOSKELETAL: Extremities without clubbing, cyanosis,but has 1 + edema. NEURO: Alert & Oriented x4 to person, place, time, situation. Moves all ext x4 Assessment and Plan Assessment and Plan 1. Concurrent lung cancer and head and neck cancer. 2. Chronic obstructive pulmonary disease. She is currently on steroids. 3. Possible right-sided pneumonia. Pleural effusion resolved 4. Chronic pain on opioids. 5. Anemia due to chronic disease. Hemoglobin is stable. No apparent bleeding. Plan : 1. Cont O2 at 3 l. 2. Nebs qid , duoneb 3. Continue antibiotics PO for 5 days 4. Pain control with Percocet 5. Chemotherapy when discharged 6. Home today.Will see as OP in 3 weeks 7. Add prednisone 10 mg bid and taper in 2 weeks Olinda Novak MD Sep 02, 2016 12:32
--- NOTE | 2016-09-02 13:20 | PD.ONC.PN ---
Subjective Subjective Remarks Afebrile overnight Still with shortness of breath on exertion Pain to the right rib area with inspiration Objective Data Date Time Temp Pulse Resp B/P Pulse Ox O2 Delivery O2 Flow Rate FiO2 09/02/16 12:13 93 Nasal Cannula 3.00 09/02/16 12:00 98.0 96 20 118/76 100 09/02/16 09:00 105 106/59 09/02/16 08:00 97.7 105 18 127/74 100 09/02/16 04:00 97.7 100 17 125/80 95 09/02/16 00:00 97.2 105 18 133/86 95 09/01/16 20:00 96.9 115 18 130/80 98 09/01/16 19:29 97 Nasal Cannula 3.00 09/01/16 16:31 97 Nasal Cannula 3.00 09/01/16 16:00 98.4 99 18 118/59 96 09/01/16 15:52 120/60 09/02/16 09/02/16 09/02/16 07:00 15:00 23:00 Intake Total 240 ml 600 ml Output Total 150 ml Balance 90 ml 600 ml Result Diagram: 08/30/16199908/30/161999 Administered Medications Medications (Trade) Dose Ordered Sig/Luiz Route PRN Reason Start Time Stop Time Status Last Admin Dose Admin Sodium Chloride (NS Flush) 2 ml UNSCH PRN IV FLUSH FLUSH AFTER USING IV ACCESS 08/27/16 03:00 09/01/16 05:16 Sodium Chloride (NS Flush) 2 ml BID IV FLUSH 08/27/16 09:00 09/01/16 20:40 Acetaminophen (Tylenol) 650 mg Q4H PRN PO TEMP > 100.4 08/27/16 03:00 08/27/16 11:57 Heparin Sodium (Porcine) (Heparin Inj) 5,000 units Q12HR SQ 08/27/16 09:00 08/31/16 07:37 Metoprolol Tartrate (Lopressor) 12.5 mg Q12HR PO 08/27/16 21:00 09/02/16 07:23 Alprazolam (Xanax) 0.5 mg TID PRN PO ANXIETY 08/27/16 12:15 09/02/16 07:24 Famotidine (Pepcid) 20 mg BID PO 08/27/16 12:15 09/02/16 07:23 Furosemide (Lasix) 20 mg DAILY PO 08/27/16 12:15 09/02/16 07:23 Losartan Potassium (Cozaar) 25 mg DAILY PO 08/28/16 09:00 09/02/16 07:22 Pantoprazole Sodium (Protonix) 40 mg DAILY PO 08/27/16 12:15 09/02/16 07:22 Sucralfate (Carafate) 1 gm QID PO 08/27/16 13:00 09/02/16 07:23 Thiamine HCl (Vitamin B1) 100 mg DAILY PO 08/28/16 09:00 09/02/16 07:22 Trazodone HCl (Desyrel) 200 mg HS PO 08/27/16 21:00 09/01/16 20:39 Budesonide/ Formoterol Fumarate (Symbicort 160-4.5 Inh) 2 puff Q12HR INH 08/28/16 10:15 09/02/16 07:24 Potassium Bicarb/ Potassium Chloride (K-Lyte Cl Eff) 50 meq UNSCH PRN PO For Potassium 3.3 - 3.5 mEq/L 08/29/16 07:15 08/30/16 22:19 Olanzapine (ZyPREXA) 5 mg Q8H PO 08/30/16 16:00 09/02/16 07:23 Prednisone (Deltasone) 10 mg BID PO 08/31/16 21:00 09/02/16 07:23 Metronidazole (Flagyl) 500 mg Q8HR PO 08/31/16 14:00 09/02/16 06:33 Hydromorphone HCl (Dilaudid) 2 mg Q4H PRN PO PAIN SCALE 6-10 09/01/16 23:45 09/02/16 13:11 Objective Remarks GENERAL: Middle aged female, upright in bed watching TV SKIN: Warm and dry. HEAD: Normocephalic. EYES: No injection or drainage. NECK: Supple, trachea midline. CARDIOVASCULAR: +S1/S2 RESPIRATORY: Scattered rhonchi throughout. On 3 L nasal cannula GASTROINTESTINAL: Abdomen soft, non-tender, nondistended. EXTREMITIES: No cyanosis. No edema NEUROLOGICAL: No obvious focal deficit. Awake. Moving all extremities. Assessment/Plan Problem List: (1) Carcinoma Status: Acute Plan: --Concurrent lung cancer and head and neck cancer. --Dr. Arias patient-->will follow with him upon discharge --recently started daily radiation with concurrent chemotherapy every two weeks. --last treatment was three weeks ago-->has been in the hospital for pneumonia since then. --CT thorax--> ++ large cavitary mass in the right upper lobe. also a suspicious density in the right paratracheal and right hilar area which could be adenopathy. +collapse of partial right upper lobe, right middle lobe and right lower lobe. +right pleural effusion and had 900 cc of pleural fluid removed which was serosanguineous. Cytology is pending. (2) Pneumonia Status: Acute Plan: --on antibiotic (3) Anemia of chronic disease Status: Acute Plan: --hgb stable Assessment 55y/o female admitted with respiratory insufficiency. Oncology consulted for lung cancer and neck cancer. h/o Lung cancer. Head and neck cancer. Coronary artery disease. Anxiety. Hypertension. Chronic obstructive pulmonary disease. Plan 1. Okay for discharge from oncology standpoint 2. Patient has appointment with Dr. Arias later this afternoon 3. Cytology pending Attending Statement The exam, history, and the medical decision-making described in the above note were completed with the assistance of the mid-level provider. I reviewed and agree with the findings presented. I attest that I had a [id number] encounter with the patient on the same day, and personally performed and documented my assessment and findings in the medical record. (Late entry). SOB and right CP stable. Eager to go home and has f/u with this afternoon. Cytology is still pending. She will f/u with to continue treatment. Yanni Wilson Sep 02, 2016 13:20 Isidro Elias MD Sep 02, 2016 13:51
== END 2016-09-02 13:37 | disposition home or self-care (01) | DRG 193 ==
LOC: NEPC 23:21 → NEDA 08-27 02:13 → HIMW 08-27 06:05 → HOCA 08-31 13:03
PROVIDERS: ADMIT Specialist; ATTEND Specialist
PROC: 0W993ZZ Drainage of Right Pleural Cavity, Percutaneous Approach (ICD-10-PCS; principal; 2016-08-27)
PROC: 5A09357 Assistance with Respiratory Ventilation, Less than 24 Consecutive Hours, Continuous Positive Airway Pressure (ICD-10-PCS; 2016-08-28)
DX: J18.8 Other pneumonia, unspecified organism (principal); J96.02 Acute respiratory failure with hypercapnia; I95.89 Other hypotension; I50.22 Chronic systolic (congestive) heart failure; E44.0 Moderate protein-calorie malnutrition; J90 Pleural effusion, not elsewhere classified; J44.1 Chronic obstructive pulmonary disease with (acute) exacerbation; C34.31 Malignant neoplasm of lower lobe, right bronchus or lung; E87.1 Hypo-osmolality and hyponatremia; C32.9 Malignant neoplasm of larynx, unspecified; D63.8 Anemia in other chronic diseases classified elsewhere; Z92.3 Personal history of irradiation; I10 Essential (primary) hypertension; Z92.21 Personal history of antineoplastic chemotherapy; I25.2 Old myocardial infarction; I25.5 Ischemic cardiomyopathy; Z68.26 Body mass index [BMI] 26.0-26.9, adult; F41.9 Anxiety disorder, unspecified; Z79.891 Long term (current) use of opiate analgesic; G89.29 Other chronic pain; Z91.19 Patient's noncompliance with other medical treatment and regimen; Z87.11 Personal history of peptic ulcer disease; Z87.891 Personal history of nicotine dependence; R00.0 Tachycardia, unspecified; I25.10 Atherosclerotic heart disease of native coronary artery without angina pectoris
CPT/HCPCS: 32554; 36600; 71010; 71275; 76604; 76937; 80048; 80053; 81001; 82150; 82550; 82805; 82945; 82948; 83605; 83615; 83735; 83880; 83986; 84100; 84157; 84484; 85007; 85025; 85027; 85610; 85730; 87015; 87070; 87102; 87116; 87205; 87206; 87641; 87804; 89051; 93005; 93306; 93970; 94002; 94640; 94664; 96365; 96366; 96375; J0456; J1644; J1815; J2270; J2920; J2930; J3260; J3475; J7030; J7050; J7512; J7613; P9047; Q9967